=== PATIENT | male | born 1945 | race Caucasian/White ===

== ENCOUNTER 2018-07-26 16:43 | Inpatient (IN) ==
[2018-07-26] MEDS ORDERED: FUROSEMIDE 40 MG/4 ML VIAL IV STA (17:29)
[2018-07-26 17:40] LABS: Basophils # (auto) 0.04 K/uL (0-0.2); Basophils % (auto) 0.6 %; Eosinophils # (auto) 0.24 K/uL (0-0.5); Eosinophils % (auto) 3.3 %; Hematocrit (blood only) 38.2 % (42-52); Hemoglobin 12.9 g/dL (14.0-18.0); Lymphocytes # (auto) 1.32 K/uL (1.2-3.4); Lymphocytes % (auto) 18.3 %; Mean Corpuscular Hgb Conc 33.8 g/dL (32-36); Mean Corpuscular Volume 92.3 fL (80-100); Mean Platelet Volume 10.7 fL (7.4-10.4); Monocytes % (auto) 9.7 %; Neutrophils # (auto) 4.93 K/uL (1.4-6.5); Neutrophils % (auto) 68.1 %; Platelet Count 137 K/uL (130-400); RDW Coefficient of Variation 14.5 % (11.5-14.5); RDW Standard Deviation 49.1 fL (36.4-46.3); Red Blood Count 4.14 M/uL (4.7-6.1); White Blood Count 7.23 K/uL (4.8-10.8)
--- NOTE | 2018-07-26 17:45 | XRay Report ---
XR chest 1V portable CLINICAL HISTORY: 73 years-old Male presenting with Chest Pain, shortness of breath. TECHNIQUE: Portable upright AP view of the chest was obtained. COMPARISON: None. FINDINGS: Atherosclerosis of the aortic arch. Cardiac silhouette top normal in size. Mild pulmonary vascular pr ominence with bronchial wall thickening suggested. Mildly low lung volumes with elevation of the righ t hemidiaphragm. No large effusion or pneumothorax. Osseous structures normal. Upper abdomen normal. IMPRESSION: 1. Findings suggest volume overload with congestive change. No kaci pulmonary edema at this time. 2. Borderline cardiomegaly. Electronically signed by: Ryan Alexander M.D. 07/26/2018 5:44 PM
[2018-07-26 17:50] LABS: INR 1.2 (0.9-1.1); Partial Thromboplastin Ratio 1.1; Partial Thromboplastin Time 28.2 Seconds (21.0-31.0); Prothrombin Time 11.6 Seconds (9.0-12.0)
[2018-07-26 18:02] LABS: Alanine Aminotransferase 18 U/L (12-78); Albumin Level 3.6 gm/dl (3.4-5.0); Aspartate Aminotransferase 19 U/L (15-37); BUN Creatinine Ratio 11.7 (10-20); Blood Urea Nitrogen 11 mg/dl (7-18); Calcium 8.9 mg/dl (8.5-10.1); Carbon Dioxide 28 mmol/L (21-32); Chloride 101 mmol/L (98-107); Creatinine Clr Calc Pharmacy 99.2 ml/min; Est GFR (African American) 97.2; Est GFR (Non-African American) 83.9; Glucose 92 mg/dl (70-99); Magnesium 2.3 mg/dl (1.8-2.4); Potassium 4.1 mmol/L (3.5-5.1); Sodium 133 mmol/L (136-145)
[2018-07-26 18:08] LABS: Alkaline Phosphatase 99 U/L (45-117); Bilirubin,Total 1.4 mg/dl (0.2-1); Globulin 3.6 gm/dl (2.5-4.0); NT Pro B Type Natriuretic Pept 1549 pg/ml (0-900); Total Protein 7.2 gm/dl (6.4-8.2); Troponin I < 0.015 ng/ml (0-0.045)
[2018-07-26] MEDS ORDERED: ACETAMINOPHEN 325 MG TAB ONE (19:41)
[2018-07-26] MEDS ORDERED: THIAMINE HCL 100 MG in SYRINGE 9 ML IV STA (19:48)
[2018-07-26 20:22] LABS: Reticulocyte % 1.9 % (0.5-2.0); Reticulocytes # 0.08 10^6/uL (0.02-0.10)
[2018-07-26] MEDS ORDERED: ALBUT/IPRATROP 3MG/0.5MG NEB 3 ML VIAL NEB STA (20:49)
[2018-07-26 21:03] LABS: Ferritin 100.1 ng/ml (8-388)
[2018-07-26 21:12] LABS: Folate (Folic Acid) 8.88 ng/ml (>5.38)
[2018-07-26] MEDS ORDERED: IOVERSOL 100ml IV PRN (22:06)
--- NOTE | 2018-07-26 22:12 | CT Scan Report ---
CT head/brain wo con CLINICAL HISTORY: 73 years-old Male presenting with dizziness, near syncope. TECHNIQUE: Multidetector CT imaging of the head was performed without the use of intravenous contrast . IV contrast: None. One or more dose lowering techniques were used consistent with the principles of ALARA (as low as reasonably achievable), including automatic exposure control, mA or kV adjustment t o individual patient size, and/or use of iterative reconstruction. COMPARISON: None. CT DOSE (mGy.cm): The estimated cumulative dose is 1335.06. FINDINGS: Tunnel Heading Inspector topogram: Unremarkable. Ventricles and sulci normal in size. No hemorrhage. Periventricular and subcortical white matter hypo attenuation, nonspecific but likely indicative of chronic small vessel ischemic change. No acute terr itorial infarct. No mass effect or midline shift. No extra-axial fluid collection. Paranasal sinuses and mastoid air cells clear. Calvarium intact. Bilateral manzanita lenses are absent. IMPRESSION: 1. Chronic small vessel ischemic change. No acute intracranial abnormality. Electronically signed by: Ryan Alexander M.D. 07/26/2018 10:11 PM
--- NOTE | 2018-07-26 22:14 | History & Physical Report ---
Date of Service July 26, 2018 Assessment & Plan (1) CHF (congestive heart failure): A. fib, unknown duration, rate controlled Transient substernal pain rule out PE hypertension, slightly elevated Abdominal distention possible ascites LE swelling secondary to CHF rule out DVT LE claudication symptoms rule out PAD Ongoing alcohol abuse Past tobacco abuse New onset anemia, occult GI bleed No previous GI endoscopies in the past PCU Diuretic Rx Strict I/Os, daily weights, CHF education, fluid restriction TTE, Cardio consult RE CHF, new onset A. fib Continue home beta-chauncey for A. fibow, anticoagulation currently precluded by occult GI bleed CT chest PE study RE transient gripping substernal pain Abdominal ultrasound rule out ascites LE Dopplers rule out DVT ABIs RE claudication Anemia workup, hold aspirin until hemoglobin stable DVT prophylaxis. SCDs RE occult GI bleed causing anemia DNR Patient's daughter requesting updates from providers. Ms. Digna Ojeda, contact #[phone]. History of Present Illness Chief Complaint: Shortness of breath, fluid retention Primary Care Provider: Mj Lama MD History obtained from patient, family, and records. Medical history significant for hypertension, hyperlipidemia, past tobacco abuse , ongoing alcohol abuse, chronic back pain. 3 months ago patient seen at the office for weight gain, abdominal distention, leg swelling, exertional SOB. Patient unaware of snoring symptoms at night. Patient given IM Lasix at the office leading to improvement of symptoms. Unclear if patient unable to follow-up with PCP. The last week patient noted increasing abdominal distention, bilateral leg swelling and leg pain worse on walking, weight gain of about 50 pounds from April 2018. Patient admits to not being watchful with salt intake. Patient having trouble moving around and having worsening shortness of breath on exertion the last week. Noted to be stumbling by family. Episodic lightheadedness. Near syncopal event today. Transient gripping chest sensation today. No unusual cough symptoms. Patient [place] [facility] following referral by PCP. IV Lasix given at the ER for CHF. Medical History as above No history of alcohol withdrawal seizures/endotracheal intubation for alcohol withdrawal. 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 Allergies Allergy/AdvReac Type Severity Reaction Status Date / Time acetaminophen [From Vicodin] Allergy Hives Verified 07/26/18 17:05 hydrocodone [From Vicodin] Allergy Hives Verified 07/26/18 17:05 Home Medications Home Medications Medication Instructions Recorded Confirmed Type aspirin 81 mg PO DAILY 07/26/18 07/26/18 History atenolol 50 mg PO DAILY 07/26/18 07/26/18 History furosemide 40 mg PO BID 07/26/18 07/26/18 History gabapentin 300 mg PO TID 07/26/18 07/26/18 History potassium chloride 10 meq PO BID 07/26/18 07/26/18 History simvastatin 40 mg PO DAILY 07/26/18 07/26/18 History tramadol 50 mg PO Q6H PRN 07/26/18 07/26/18 History vit C,C-Yg-fsqyc-lutein-zeaxan 1 tab PO BID 07/26/18 07/26/18 History [PreserVision AREDS-2] Past Med/Surg History Medical History CHF (congestive heart failure) (Chronic) Hypertension (Chronic) Alcohol abuse (Suspected) No significant family history No significant past surgical history Social History Current Living Situation: Spouse Other Information That Helps Us Care for You: No Feels Safe at Home: Yes Smoking Status: Former smoker Tobacco Type: smokeless tobacco Do You Dip or Chew Tobacco: Yes Second Hand Exposure: No Tobacco Cessation Education Requested by Patient: No Hx Alcohol Use: Yes Alcohol type: beer Alcohol Intake Frequency: 3 or more drinks per day Hx Substance Use: No Beliefs That Will Affect Care: None Communication Ability: Effective Service Desk Director Required: Yes Review of Systems As per HPI, all 10 systems reviewed, all other ROS negative Physical Exam 2 Vital Signs (Past 24 Hours): Last Vital Signs Temp 36.7 C 07/26/18 17:05 Pulse 84 07/26/18 21:09 Resp 24 07/26/18 21:09 BP 185/95 H 07/26/18 21:09 Pulse Ox 97 07/26/18 21:01 Physical Exam: GENERAL: Anxious, obese, minimal respiratory distress SKIN: Pallor, warm HEENT: Pale palpebral conjunctivae, no ptosis, dry buccal mucosa NECK : Supple, short neck, no tenderness CHEST : Scattered crackles , no tenderness HEART : Irregular, no obvious murmurs ABDOMEN: distention, nontender EXTREMITIES : bri LE swelling, no tenderness, no other conspicuous deformities noted NEUROLOGIC : Coherent, no facial asymmetry, no other gross focality Results & Data Laboratory Results Laboratory Results WBC 7.23 K/uL (4.8-10.8) 07/26/18 17:25 RBC 4.14 M/uL (4.7-6.1) L 07/26/18 17:25 Hgb 12.9 g/dL (14.0-18.0) L 07/26/18 17:25 Hct 38.2 % (42-52) L 07/26/18 17:25 MCV 92.3 fL (80-100) 07/26/18 17:25 MCH 31.2 pg (25-34) 07/26/18 17:25 MCHC 33.8 g/dL (32-36) 07/26/18 17:25 RDW Std Deviation 49.1 fL (36.4-46.3) H 07/26/18 17:25 RDW Coeff of Brooks 14.5 % (11.5-14.5) 07/26/18 17:25 Plt Count 137 K/uL (130-400) 07/26/18 17:25 MPV 10.7 fL (7.4-10.4) H 07/26/18 17:25 Immature Gran % (Auto) 0.0 % 07/26/18 17:25 Neut % (Auto) 68.1 % 07/26/18 17:25 Lymph % (Auto) 18.3 % 07/26/18 17:25 [place] % (Auto) 9.7 % 07/26/18 17:25 Eos % (Auto) 3.3 % 07/26/18 17:25 Baso % (Auto) 0.6 % 07/26/18 17:25 Reticulocyte % (Auto) 1.9 % (0.5-2.0) 07/26/18 20:12 Immature Gran # (Auto) 0.00 K/uL (0.00-0.02) 07/26/18 17:25 Neut # (Auto) 4.93 K/uL (1.4-6.5) 07/26/18 17:25 Lymph # (Auto) 1.32 K/uL (1.2-3.4) 07/26/18 17:25 [place] # (Auto) 0.70 K/uL (0.11-0.59) H 07/26/18 17:25 Eos # (Auto) 0.24 K/uL (0-0.5) 07/26/18 17:25 Baso # (Auto) 0.04 K/uL (0-0.2) 07/26/18 17:25 Reticulocyte # 0.08 10^6/uL (0.02-0.10) 07/26/18 20:12 PT 11.6 Seconds (9.0-12.0) 07/26/18 17:25 INR 1.2 (0.9-1.1) H 07/26/18 17:25 APTT 28.2 Seconds (21.0-31.0) 07/26/18 17:25 PTT Ratio 1.1 07/26/18 17:25 Sodium 133 mmol/L (136-145) L 07/26/18 17:25 Potassium 4.1 mmol/L (3.5-5.1) 07/26/18 17:25 Chloride 101 mmol/L (98-107) 07/26/18 17:25 Carbon Dioxide 28 mmol/L (21-32) 07/26/18 17:25 Anion Gap 4.0 (3-11) 07/26/18 17:25 BUN 11 mg/dl (7-18) 07/26/18 17:25 Creatinine 0.91 mg/dl (0.6-1.4) 07/26/18 17:25 Est Cr Clr Drug Dosing 99.2 ml/min 07/26/18 17:25 Est GFR ( Amer) 97.2 07/26/18 17:25 Est GFR (Non-Af Amer) 83.9 07/26/18 17:25 BUN/Creatinine Ratio 11.7 (10-20) 07/26/18 17:25 Glucose 92 mg/dl (70-99) 07/26/18 17:25 Calcium 8.9 mg/dl (8.5-10.1) 07/26/18 17:25 Magnesium 2.3 mg/dl (1.8-2.4) 07/26/18 17:25 Iron 70 mcg/dl (35-175) 07/26/18 20:12 TIBC 336 mcg/dl (250-450) 07/26/18 20:12 Transferrin 273 mg/dl (200-360) 07/26/18 20:12 Ferritin 100.1 ng/ml (8-388) 07/26/18 20:12 Total Bilirubin 1.4 mg/dl (0.2-1) H 07/26/18 17:25 AST 19 U/L (15-37) 07/26/18 17:25 ALT 18 U/L (12-78) 07/26/18 17:25 Alkaline Phosphatase 99 U/L (45-117) 07/26/18 17:25 Troponin I < 0.015 ng/ml (0-0.045) 07/26/18 17:25 NT-Pro-B Natriuret Pep 1549 pg/ml (0-900) H 07/26/18 17:25 Total Protein 7.2 gm/dl (6.4-8.2) 07/26/18 17:25 Albumin 3.6 gm/dl (3.4-5.0) 07/26/18 17:25 Globulin 3.6 gm/dl (2.5-4.0) 07/26/18 17:25 Albumin/Globulin Ratio 1.0 (0.9-2) 07/26/18 17:25 Lipase 103 U/L (73-393) 07/26/18 17:25 Vitamin B12 337 pg/ml (211-911) 07/26/18 20:12 Folate 8.88 ng/ml (>5.38) 07/26/18 20:12 TSH 2.560 uIu/ml (0.300-4.500) 07/26/18 17:25 Ethyl Alcohol mg/dL < 3.0 mg/dl (0-3) 07/26/18 20:12 FOBT positive Diagnostic Findings Chest x-ray showed volume overload with congestive change. No kaci pulmonary edema at this time. Borderline cardiomegaly. EKG as per my interpretation : Rate 65, A. fib, diffuse T wave flattening, PRWP
--- NOTE | 2018-07-26 22:51 | CT Scan Report ---
CT angio chest PE protocol CLINICAL HISTORY: 73 years-old Male presenting with chest pain, shortness of breath, leg swelling and fluid retention, clinical concern for pulmonary embolus. TECHNIQUE: Multidetector CT angiography of the chest was performed after administration of intravenou s contrast. 3-D volumetric and/or maximum intensity projection (MIP) images were subsequently reconst ructed for review. IV contrast: 89 mL of Optiray 320. One or more dose lowering techniques were used consistent with the principles of ALARA (as low as reasonably achievable), including automatic exposu re control, mA or kV adjustment to individual patient size, and/or use of iterative reconstruction. COMPARISON: None. CT DOSE (mGy.cm): The estimated cumulative dose is 1335.06 mGy.cm. FINDINGS: Excelsior Picker topogram: Cholecystectomy clips. Pulmonary vasculature: The study is suboptimal for the assessment of the pulmonary vascular tree secondary to timing of the contrast bolus and respiratory motion artifact. Allowing for limited image quality, no central fillin g defect to suggest pulmonary embolus. Main pulmonary artery is not enlarged. No flattening of the in terventricular septum. No intracardiac filling defect. No reflux of contrast into the hepatic veins. Remaining chest: On soft tissue windows, normal thyroid. Diffuse body wall edema. Subcentimeter prominent mediastinal lymph nodes. No hilar, axillary, or supraclavicular lymphadenopathy. Trace atherosclerosis of the aor ta. Mild multichamber enlargement of the heart. Coronary artery calcification. Moderate to large righ t simple appearing pleural effusion. Small left pleural effusion. No pericardial effusion. Hepatic st eatosis. Nodular contour of the liver. Cholecystectomy clips. On lung windows, no pneumothorax. Central airways patent. Dependent consolidation volume loss in the right lower lobe and to a lesser extent in the left lower lobe. No other focal infiltrate or nodule. Respiratory motion artifact degrades diagnostic evaluation of the lung parenchyma. On bone windows, normal osseous structures. IMPRESSION: 1. Allowing for suboptimal image quality, no evidence of pulmonary embolus. 2. Moderate to large right and small left pleural effusions with passive atelectasis, right greater than left. 3. Volume overload evidenced by pleural effusions, body wall edema, and mild cardiomegaly. 4. Nodular contour of the liver suggested. This may indicate developing fibrosis in the setting of h epatic steatosis versus a cardiac etiology (congestive hepatopathy). 5. Likely reactive mediastinal lymph nodes. Attention on follow-up. Electronically signed by: Ryan Alexander M.D. 07/26/2018 10:50 PM
[2018-07-26] MEDS ORDERED: PROCHLORPERAZINE 5 MG in SYRINGE 4 ML IV PRN (23:47)
[2018-07-26] MEDS ORDERED: ATENOLOL 50 MG TABLET PO SCH (23:47)
[2018-07-26] MEDS ORDERED: LEVALBUTEROL 1.25MG/0.5ML NEB INH PRN (23:47)
[2018-07-26] MEDS ORDERED: GABAPENTIN 1200MG ALCOHOL WITHDRAWAL LOAD PO STA (23:47)
[2018-07-26] MEDS ORDERED: ATIVAN IV ALCOHOL WITHDRAWL IV SCH (23:47)
[2018-07-26] MEDS ORDERED: LORazepam 1 MG/2 ML VIAL IV PRN (23:47)
[2018-07-26] MEDS ORDERED: IPRATROPIUM BROMIDE NEB SOLN 0.02% 2.5 ML VIAL INH PRN (23:47)
[2018-07-26] MEDS ORDERED: LORazepam 2 MG/4 ML VIAL IV PRN (23:47)
[2018-07-26] MEDS ORDERED: LORazepam 3 MG/6 ML VIAL IV PRN (23:47)
[2018-07-26] MEDS ORDERED: XOPENEX/ATROVENT 1.25mg/0.5MG NEB COMBO NEB PRN (23:47)
[2018-07-26] MEDS ORDERED: MoRPHine SULFATE 4 MG/ML 1 ML CARP\\VIAL IV PRN (23:47)
[2018-07-27] MEDS ORDERED: GABAPENTIN 600 MG TAB PO SCH
[2018-07-27] MEDS: FOLIC ACID 1 MG TAB PO SCH ×2 (00:27→10:24)
[2018-07-27] MEDS: MULTIVITAMIN TAB PO SCH (00:28)
--- NOTE | 2018-07-27 00:30 | Emergency Department Note ---
Entered by Lynette Lowry acting as a scribe for Lyle Kunz MD History of Present Illness General Chief complaint: Cardiac Assessment Stated complaint: CONGESTIVE HEART FAILURE Time Seen by Provider: 07/26/18 17:15 Source: patient Limitations: no limitations History of Present Illness Provider complaint: weight gain Onset (ago): month(s) 1 Associated symptoms: + cough, + shortness of breath and + other (+dizziness, + pain in bilateral legs); no chest pain, no fever/chills and no nausea/vomiting Treatments prior to arrival: none The patient is a 73 white male w/ PMHx of CHF, alcohol abuse, and hypertension who presents to the ED w/ CC of weight gain beginning 1 month prior to arrival. The patient states that he has shortness of breath, dizziness, cough, and pain in bilateral legs. The patient denies any chest pains, nausea, vomiting, or fevers. The patient states that he saw Dr. Paz -Cardiac Disease from [facility] earlier in the day. The patient states that Dr. Paz was concerned with the patient's weight gain and swelling in his legs and states that he referred the patient to the ED. The patient states that he weighed 248 lbs. 1 month prior to arrival and states that he was given Lasix and his weight dropped down to 240 lbs. The patient states that he takes 40 mg of Lasix 2x a day but states that he didn't take any of his medications prior to arrival. The patient states that he weighs 269 lbs. today. The patient states that he uses smokless tobacco and drinks 2 beers a day. Home Medications Home Medications Medication Instructions Recorded Confirmed Type aspirin 81 mg PO DAILY 07/26/18 07/26/18 History atenolol 50 mg PO DAILY 07/26/18 07/26/18 History furosemide 40 mg PO BID 07/26/18 07/26/18 History gabapentin 300 mg PO TID 07/26/18 07/26/18 History potassium chloride 10 meq PO BID 07/26/18 07/26/18 History simvastatin 40 mg PO DAILY 07/26/18 07/26/18 History tramadol 50 mg PO Q6H PRN 07/26/18 07/26/18 History vit C,F-Wp-smfct-lutein-zeaxan 1 tab PO BID 07/26/18 07/26/18 History [PreserVision AREDS-2] Allergies Allergy/AdvReac Type Severity Reaction Status Date / Time acetaminophen [From Vicodin] Allergy Hives Verified 07/26/18 17:05 hydrocodone [From Vicodin] Allergy Hives Verified 07/26/18 17:05 Past Med/Surg History Medical History CHF (congestive heart failure) (Chronic) Hypertension (Chronic) Alcohol abuse (Suspected) No significant family history No significant past surgical history Social History Current Living Situation: Spouse Other Information That Helps Us Care for You: No Feels Safe at Home: Yes Smoking Status: Former smoker Tobacco Type: smokeless tobacco Do You Dip or Chew Tobacco: Yes Second Hand Exposure: No Tobacco Cessation Education Requested by Patient: No Hx Alcohol Use: Yes Alcohol type: beer Alcohol Intake Frequency: 3 or more drinks per day Hx Substance Use: No Beliefs That Will Affect Care: None Communication Ability: Effective Java Scala Developer Required: Yes Review of Systems See HPI for pertinent positives & negatives. and A total of 10 systems reviewed and were otherwise negative Physical Exam Vital Signs Vital Signs - 24 hr 07/26/18 17:05 07/26/18 17:18 07/26/18 17:23 Temperature 36.7 C Temperature Source Oral Sepsis Recent Fever Within 48 Hours No Sepsis New/Unexplained Change in Mental Status No Sepsis Action Taken by Nursing No Action Required Pulse Rate 67 64 Pulse Rate [Apical] Pulse Rhythm Regular Pulse Strength Normal Respiratory Rate 24 19 Respiratory Effort / Characteristics Spontaneous Labored Respiratory Depth Normal Respiratory Pattern Regular Blood Pressure 149/59 H Blood Pressure [Right Arm] Blood Pressure Mean 89 Blood Pressure Mean [Right Arm] Blood Pressure Position Sitting Pulse Oximetry 97 97 96 Oxygen Delivery Method Room Air Room Air Oxygen Flow Rate 07/26/18 17:27 07/26/18 17:30 07/26/18 17:31 Temperature Temperature Source Sepsis Recent Fever Within 48 Hours Sepsis New/Unexplained Change in Mental Status Sepsis Action Taken by Nursing Pulse Rate 64 61 59 L Pulse Rate [Apical] 62 Pulse Rhythm Pulse Strength Respiratory Rate 25 H 19 18 Respiratory Effort / Characteristics Respiratory Depth Respiratory Pattern Blood Pressure 165/67 H 152/61 H Blood Pressure [Right Arm] 152/61 H Blood Pressure Mean 99 91 Blood Pressure Mean [Right Arm] 91 Blood Pressure Position Pulse Oximetry 95 98 99 Oxygen Delivery Method Room Air Oxygen Flow Rate 07/26/18 17:42 07/26/18 18:00 02/05/19 18:04 Temperature Temperature Source Sepsis Recent Fever Within 48 Hours Sepsis New/Unexplained Change in Mental Status Sepsis Action Taken by Nursing Pulse Rate 63 Pulse Rate [Apical] 62 Pulse Rhythm Pulse Strength Respiratory Rate 20 16 Respiratory Effort / Characteristics Respiratory Depth Respiratory Pattern Blood Pressure 178/73 H Blood Pressure [Right Arm] 178/73 H Blood Pressure Mean 108 Blood Pressure Mean [Right Arm] 108 Blood Pressure Position Pulse Oximetry 97 97 97 Oxygen Delivery Method Room Air Room Air Oxygen Flow Rate 07/26/18 18:30 07/26/18 19:00 07/26/18 19:21 Temperature Temperature Source Sepsis Recent Fever Within 48 Hours Sepsis New/Unexplained Change in Mental Status Sepsis Action Taken by Nursing Pulse Rate 64 65 Pulse Rate [Apical] 63 Pulse Rhythm Pulse Strength Respiratory Rate 18 19 16 Respiratory Effort / Characteristics Respiratory Depth Respiratory Pattern Blood Pressure 157/94 H 165/64 H Blood Pressure [Right Arm] 165/64 H Blood Pressure Mean 115 97 Blood Pressure Mean [Right Arm] 97 Blood Pressure Position Pulse Oximetry 94 97 Oxygen Delivery Method Room Air Oxygen Flow Rate 07/26/18 19:30 07/26/18 20:00 07/26/18 20:30 Temperature Temperature Source Sepsis Recent Fever Within 48 Hours Sepsis New/Unexplained Change in Mental Status Sepsis Action Taken by Nursing Pulse Rate 65 65 62 Pulse Rate [Apical] Pulse Rhythm Pulse Strength Respiratory Rate 22 26 H 19 Respiratory Effort / Characteristics Respiratory Depth Respiratory Pattern Blood Pressure 185/76 H Blood Pressure [Right Arm] Blood Pressure Mean 112 Blood Pressure Mean [Right Arm] Blood Pressure Position Pulse Oximetry 96 Oxygen Delivery Method Oxygen Flow Rate 07/26/18 20:46 07/26/18 21:00 07/26/18 21:01 Temperature Temperature Source Sepsis Recent Fever Within 48 Hours Sepsis New/Unexplained Change in Mental Status Sepsis Action Taken by Nursing Pulse Rate 63 66 65 Pulse Rate [Apical] 63 Pulse Rhythm Pulse Strength Respiratory Rate 25 H 19 22 Respiratory Effort / Characteristics Respiratory Depth Respiratory Pattern Blood Pressure 141/59 H 184/68 H Blood Pressure [Right Arm] 141/59 H Blood Pressure Mean 86 106 Blood Pressure Mean [Right Arm] 86 Blood Pressure Position Pulse Oximetry 98 96 97 Oxygen Delivery Method Room Air Oxygen Flow Rate 07/26/18 21:09 07/26/18 22:31 07/26/18 23:00 Temperature Temperature Source Sepsis Recent Fever Within 48 Hours Sepsis New/Unexplained Change in Mental Status Sepsis Action Taken by Nursing Pulse Rate 84 Pulse Rate [Apical] 73 Pulse Rhythm Pulse Strength Respiratory Rate 24 22 Respiratory Effort / Characteristics Respiratory Depth Respiratory Pattern Blood Pressure 185/95 H Blood Pressure [Right Arm] 137/59 L Blood Pressure Mean 125 Blood Pressure Mean [Right Arm] 85 Blood Pressure Position Pulse Oximetry 94 Oxygen Delivery Method Room Air Room Air Oxygen Flow Rate 07/26/18 23:55 Temperature 37.0 C Temperature Source Oral Sepsis Recent Fever Within 48 Hours Sepsis New/Unexplained Change in Mental Status Sepsis Action Taken by Nursing Pulse Rate 67 Pulse Rate [Apical] 90 Pulse Rhythm Pulse Strength Respiratory Rate 24 Respiratory Effort / Characteristics Non-Labored SOB on Exertion Respiratory Depth Respiratory Pattern Tachypnea Blood Pressure Blood Pressure [Right Arm] 142/76 H Blood Pressure Mean Blood Pressure Mean [Right Arm] 98 Blood Pressure Position Pulse Oximetry 90 Oxygen Delivery Method Nasal Cannula Oxygen Flow Rate 2 GENERAL: Well appearing, well nourished, NAD, non-toxic. EYE EXAM: Normal conjunctiva. PERRL, no anisocoria and EOM's grossly intact w/o pain. OROPHARYNX: No exudate, poor dentition, no tonsillar/uvular deviation or swelling. NECK: Supple, no nuchal rigidity, no adenopathy, non-tender. No signs of meningismus. LUNGS: Bibasilar crackles. Normal chest wall mechanics. HEART: Irregularly irregular, no MRG. ABDOMEN: Abdomen soft, non-tender, normo-active bowel sounds, no masses, no rebound or guarding. BACK: No CVA TTP. SKIN: No rashes and no bruising. UPPER EXTREMITIES: Upper extremities are grossly normal. LOWER EXTREMITIES: 3/4+ bilateral pitting edema, negative Homans sign. NEURO EXAM: Cranial nerves II-XII grossly intact, normal speech, 5/5 strength in bilateral upper and lower extremities, no sensory deficits, moves all 4 extremities on command w/o issue. Course 1720: Past medical records reviewed. The patient was evaluated in room B8, and a complete history and physical examination were performed. 0: I checked on and updated the patient on his results. 1912: I discussed the patient's case with Cheyenne ORNELAS/Alley Moses who will evaluate the patient for further hospitaization. Consultations Consultation #1: Cheyenne ORNELAS/Alley Moses Time: 19:13 Administered Medications Discontinued Medications Acetaminophen (Tylenol) Confirm Administered Dose 650 mg .ROUTE .STK-MED ONE Stop: 07/26/18 19:42 Last Admin: 07/26/18 19:43 Dose: 650 mg Albuterol (Duoneb) 3 ml NEB NOW STA Stop: 07/26/18 20:50 Last Admin: 07/26/18 21:11 Dose: 3 ml Furosemide (Lasix) 40 mg IV NOW STA Stop: 07/26/18 17:30 Last Admin: 07/26/18 18:04 Dose: 40 mg Thiamine HCl 100 mg/ Syringe 10 mls @ 2 mls/min IV NOW STA Stop: 07/26/18 19:52 Last Admin: 07/26/18 21:11 Dose: 2 mls/min Ioversol (Optiray 320 100ml) 89 ml IV ONCE PRN PRN Reason: Interaction Checking Stop: 07/30/18 22:05 Last Admin: 07/26/18 22:08 Dose: 89 ml Medical Decision Making Medical Records Attestation: I reviewed the patient's medical records. Home Medications Current Medication List: was personally reviewed by me Laboratory Data Attestation: I reviewed the patient's lab results. Result diagrams: 07/26/18 17:25 07/26/18 17:25 Lab Results 07/26/18 07/26/18 07/26/18 Range/Units 17:25 17:25 17:25 WBC 7.23 (4.8-10.8) K/uL RBC 4.14 L (4.7-6.1) M/uL Hgb 12.9 L (14.0-18.0) g/dL Hct 38.2 L (42-52) % MCV 92.3 (80-100) fL MCH 31.2 (25-34) pg MCHC 33.8 (32-36) g/dL RDW Std Deviation 49.1 H (36.4-46.3) fL RDW Coeff of Brooks 14.5 (11.5-14.5) % Plt Count 137 (130-400) K/uL MPV 10.7 H (7.4-10.4) fL Immature Gran % (Auto) 0.0 % Neut % (Auto) 68.1 % Lymph % (Auto) 18.3 % Churchill % (Auto) 9.7 % Eos % (Auto) 3.3 % Baso % (Auto) 0.6 % Reticulocyte % (Auto) (0.5-2.0) % Immature Gran # (Auto) 0.00 (0.00-0.02) K/uL Neut # (Auto) 4.93 (1.4-6.5) K/uL Lymph # (Auto) 1.32 (1.2-3.4) K/uL Churchill # (Auto) 0.70 H (0.11-0.59) K/uL Eos # (Auto) 0.24 (0-0.5) K/uL Baso # (Auto) 0.04 (0-0.2) K/uL Reticulocyte # (0.02-0.10) 10^6/uL PT 11.6 (9.0-12.0) Seconds INR 1.2 H (0.9-1.1) APTT 28.2 (21.0-31.0) Seconds PTT Ratio 1.1 Sodium 133 L (136-145) mmol/L Potassium 4.1 (3.5-5.1) mmol/L Chloride 101 (98-107) mmol/L Carbon Dioxide 28 (21-32) mmol/L Anion Gap 4.0 (3-11) BUN 11 (7-18) mg/dl Creatinine 0.91 (0.6-1.4) mg/dl Est Cr Clr Drug Dosing 99.2 ml/min Est GFR ( Amer) 97.2 Est GFR (Non-Af Amer) 83.9 BUN/Creatinine Ratio 11.7 (10-20) Glucose 92 (70-99) mg/dl Calcium 8.9 (8.5-10.1) mg/dl Magnesium 2.3 (1.8-2.4) mg/dl Iron (35-175) mcg/dl TIBC (250-450) mcg/dl Transferrin (200-360) mg/dl Ferritin (8-388) ng/ml Total Bilirubin 1.4 H (0.2-1) mg/dl AST 19 (15-37) U/L ALT 18 (12-78) U/L Alkaline Phosphatase 99 (45-117) U/L Troponin I < 0.015 (0-0.045) ng/ml NT-Pro-B Natriuret Pep 1549 H (0-900) pg/ml Total Protein 7.2 (6.4-8.2) gm/dl Albumin 3.6 (3.4-5.0) gm/dl Globulin 3.6 (2.5-4.0) gm/dl Albumin/Globulin Ratio 1.0 (0.9-2) Lipase 103 (73-393) U/L Vitamin B12 (211-911) pg/ml Folate (>5.38) ng/ml TSH (0.300-4.500) uIu/ml Ethyl Alcohol mg/dL (0-3) mg/dl Blood Type Antibody Screen 07/26/18 07/26/18 07/26/18 Range/Units 17:25 20:12 20:12 WBC (4.8-10.8) K/uL RBC (4.7-6.1) M/uL Hgb (14.0-18.0) g/dL Hct (42-52) % MCV (80-100) fL MCH (25-34) pg MCHC (32-36) g/dL RDW Std Deviation (36.4-46.3) fL RDW Coeff of Brooks (11.5-14.5) % Plt Count (130-400) K/uL MPV (7.4-10.4) fL Immature Gran % (Auto) % Neut % (Auto) % Lymph % (Auto) % Churchill % (Auto) % Eos % (Auto) % Baso % (Auto) % Reticulocyte % (Auto) 1.9 (0.5-2.0) % Immature Gran # (Auto) (0.00-0.02) K/uL Neut # (Auto) (1.4-6.5) K/uL Lymph # (Auto) (1.2-3.4) K/uL Churchill # (Auto) (0.11-0.59) K/uL Eos # (Auto) (0-0.5) K/uL Baso # (Auto) (0-0.2) K/uL Reticulocyte # 0.08 (0.02-0.10) 10^6/uL PT (9.0-12.0) Seconds INR (0.9-1.1) APTT (21.0-31.0) Seconds PTT Ratio Sodium (136-145) mmol/L Potassium (3.5-5.1) mmol/L Chloride (98-107) mmol/L Carbon Dioxide (21-32) mmol/L Anion Gap (3-11) BUN (7-18) mg/dl Creatinine (0.6-1.4) mg/dl Est Cr Clr Drug Dosing ml/min Est GFR ( Amer) Est GFR (Non-Af Amer) BUN/Creatinine Ratio (10-20) Glucose (70-99) mg/dl Calcium (8.5-10.1) mg/dl Magnesium (1.8-2.4) mg/dl Iron (35-175) mcg/dl TIBC (250-450) mcg/dl Transferrin (200-360) mg/dl Ferritin (8-388) ng/ml Total Bilirubin (0.2-1) mg/dl AST (15-37) U/L ALT (12-78) U/L Alkaline Phosphatase (45-117) U/L Troponin I (0-0.045) ng/ml NT-Pro-B Natriuret Pep (0-900) pg/ml Total Protein (6.4-8.2) gm/dl Albumin (3.4-5.0) gm/dl Globulin (2.5-4.0) gm/dl Albumin/Globulin Ratio (0.9-2) Lipase (73-393) U/L Vitamin B12 337 (211-911) pg/ml Folate 8.88 (>5.38) ng/ml TSH 2.560 (0.300-4.500) uIu/ml Ethyl Alcohol mg/dL (0-3) mg/dl Blood Type Antibody Screen 07/26/18 07/26/18 07/26/18 Range/Units 20:12 20:12 20:12 WBC (4.8-10.8) K/uL RBC (4.7-6.1) M/uL Hgb (14.0-18.0) g/dL Hct (42-52) % MCV (80-100) fL MCH (25-34) pg MCHC (32-36) g/dL RDW Std Deviation (36.4-46.3) fL RDW Coeff of Brooks (11.5-14.5) % Plt Count (130-400) K/uL MPV (7.4-10.4) fL Immature Gran % (Auto) % Neut % (Auto) % Lymph % (Auto) % Churchill % (Auto) % Eos % (Auto) % Baso % (Auto) % Reticulocyte % (Auto) (0.5-2.0) % Immature Gran # (Auto) (0.00-0.02) K/uL Neut # (Auto) (1.4-6.5) K/uL Lymph # (Auto) (1.2-3.4) K/uL Churchill # (Auto) (0.11-0.59) K/uL Eos # (Auto) (0-0.5) K/uL Baso # (Auto) (0-0.2) K/uL Reticulocyte # (0.02-0.10) 10^6/uL PT (9.0-12.0) Seconds INR (0.9-1.1) APTT (21.0-31.0) Seconds PTT Ratio Sodium (136-145) mmol/L Potassium (3.5-5.1) mmol/L Chloride (98-107) mmol/L Carbon Dioxide (21-32) mmol/L Anion Gap (3-11) BUN (7-18) mg/dl Creatinine (0.6-1.4) mg/dl Est Cr Clr Drug Dosing ml/min Est GFR ( Amer) Est GFR (Non-Af Amer) BUN/Creatinine Ratio (10-20) Glucose (70-99) mg/dl Calcium (8.5-10.1) mg/dl Magnesium (1.8-2.4) mg/dl Iron 70 (35-175) mcg/dl TIBC 336 (250-450) mcg/dl Transferrin 273 (200-360) mg/dl Ferritin 100.1 (8-388) ng/ml Total Bilirubin (0.2-1) mg/dl AST (15-37) U/L ALT (12-78) U/L Alkaline Phosphatase (45-117) U/L Troponin I (0-0.045) ng/ml NT-Pro-B Natriuret Pep (0-900) pg/ml Total Protein (6.4-8.2) gm/dl Albumin (3.4-5.0) gm/dl Globulin (2.5-4.0) gm/dl Albumin/Globulin Ratio (0.9-2) Lipase (73-393) U/L Vitamin B12 (211-911) pg/ml Folate (>5.38) ng/ml TSH (0.300-4.500) uIu/ml Ethyl Alcohol mg/dL < 3.0 (0-3) mg/dl Blood Type A Positive Antibody Screen NEGATIVE Imaging Data Radiologist's Impression: Radiology results as stated below per my review and the radiologist's interpretation: XR chest 1V portable CLINICAL HISTORY: 73 years-old Male presenting with Chest Pain, shortness of breath. TECHNIQUE: Portable upright AP view of the chest was obtained. COMPARISON: None. FINDINGS: Atherosclerosis of the aortic arch. Cardiac silhouette top normal in size. Mild pulmonary vascular prominence with bronchial wall thickening suggested. Mildly low lung volumes with elevation of the right hemidiaphragm. No large effusion or pneumothorax. Osseous structures normal. Upper abdomen normal. IMPRESSION: 1. Findings suggest volume overload with congestive change. No kaci pulmonary edema at this time. 2. Borderline cardiomegaly. Electronically signed by: Ryan Alexander M.D. 07/26/2018 5:44 PM ECG Data Attestation: I personally reviewed and interpreted this ECG as follows: Indication: SOB/dyspnea Rate (beats per minute): 67 Rhythm: atrial fibrillation Findings: + other (normal QRS, normal axis) Comparison ECG Date: no prior available Blood Pressure Blood Pressure Findings: Elevated blood pressure Blood Pressure Disposition: further management by hospitalist SUKHI Narrative The patient is a 73 white male w/ PMHx of CHF, alcohol abuse, and hypertension who presents to the ED w/ CC of weight gain beginning 1 month prior to arrival. Differential diagnosis: Etiologies such as infections, reactive airway disease, COPD, pneumonia, pleural effusion, pulmonary edema, ARDS, pneumothorax, CHF, cardiac ischemia, cardiac tamponade, dysrhythmia, anemia, pulmonary embolism, musculoskeletal, gastrointestinal process, as well as others were entertained. Patient was seen and evaluated the bedside. The patient does have a history of recently diagnosed CHF. The patient was seen at an outpatient cardiology clinic and referred for diuresis. The patient has put on approximately 29 pounds. The patient did a blood work completed along with a BNP troponin chest x-ray and EKG. Patient's EKG does show A. fib. No prior EKGs that are documented. Patient does believe that he does take Lasix 40 mg twice daily. Patient was given first dose. Chest x-ray does show some vascular congestion but without kaci pulmonary edema. The patient does have 3-4 bilateral lower extremity edema. Given the patient's significant weight gain, increasing dyspnea on exertion, lower semi-swelling I believe the patient would benefit from inpatient treatment and IV diuresis. I did speak the on-call hospitalist who agreed to further evaluate treat the patient. Patient was admitted to the medicine service. Impression & Plan CHF exacerbation, Alcohol abuse, Encounter for tobacco use cessation counseling Discharge Plan Visit Data *Final* Discharge Date/Time: 07/26/18 23:00 Chief Complaint: Cardiac Assessment Stated Complaint: CONGESTIVE HEART FAILURE ED Provider: Lyle Kunz Discharge Problem: CHF exacerbation, Alcohol abuse, Encounter for tobacco use cessation counseling Patient Disposition: Admitted As Inpatient Discharge Instructions Interventions: ED Discharge Assessment Last Done: 07/26/18 23:00 The scribe's documentation has been prepared under my direction and personally reviewed by me in its entirety. I confirm that the note above accurately reflects all work, treatment, procedures, and medical decision making performed by me.
[2018-07-27] MEDS ORDERED: ALBUT/IPRATROP 3MG/0.5MG NEB 3 ML VIAL NEB STA (03:43)
[2018-07-27] MEDS ORDERED: FUROSEMIDE 40 MG in SYRINGE 0 ML IV SCH ×2 (03:45→09:00)
[2018-07-27 04:13] LABS: Basophils # (auto) 0.03 K/uL (0-0.2); Basophils % (auto) 0.4 %; Eosinophils % (auto) 2.9 %; Hematocrit (blood only) 36.3 % (42-52); Hemoglobin 12.2 g/dL (14.0-18.0); Immature Granulocytes # (auto) 0.01 K/uL (0.00-0.02); Immature Granulocytes % (auto) 0.1 %; Lymphocytes # (auto) 1.29 K/uL (1.2-3.4); Mean Corpuscular Hgb Conc 33.6 g/dL (32-36); Mean Corpuscular Volume 92.8 fL (80-100); Mean Platelet Volume 10.9 fL (7.4-10.4); Monocytes # (auto) 0.64 K/uL (0.11-0.59); Monocytes % (auto) 9.4 %; Neutrophils # (auto) 4.61 K/uL (1.4-6.5); Neutrophils % (auto) 68.2 %; Platelet Count 148 K/uL (130-400); RDW Coefficient of Variation 14.6 % (11.5-14.5); RDW Standard Deviation 49.6 fL (36.4-46.3); Red Blood Count 3.91 M/uL (4.7-6.1); White Blood Count 6.78 K/uL (4.8-10.8)
[2018-07-27 04:16] LABS: HCO3 ABG 26 mmol/L (19-24); Oxygen Saturation ABG 98.5 % (90-95); PCO2 ABG 44 mmHg (35-46); PO2 ABG 120 mm/Hg (80-95); pH ABG 7.38 (7.35-7.45)
[2018-07-27 04:17] LABS: Allen Test POS (Pos)
--- NOTE | 2018-07-27 04:19 | Hospitalist Progress Note ---
Date of Service July 27, 2018 Subjective Made aware by RN of patient having apneic spells, desaturating in the 70s, transient bradycardia in the 40s during sleep. On waking up, patient denies unusual shortness of breath. O2 sats back in the 90s cardiac rate 60s AP Episodic bradycardia likely secondary to undiagnosed LIANET Decrease maintenance beta-chauncey dose outpatient sleep study Inpatient CPAP at bedtime Consider inpatient Pulmonology consultation regarding inpatient apneic events with hypoxemia. Physical Exam 2 Vital Signs (Past 24 Hours): Last Vital Signs Temp 37.0 C 07/26/18 23:55 Pulse 90 07/26/18 23:55 Resp 24 07/26/18 23:55 BP 142/76 H 07/26/18 23:55 Pulse Ox 90 07/26/18 23:55
[2018-07-27 04:22] LABS: Partial Thromboplastin Ratio 1.1; Partial Thromboplastin Time 28.4 Seconds (21.0-31.0)
[2018-07-27 04:31] LABS: BUN Creatinine Ratio 12.1 (10-20); Calcium 8.6 mg/dl (8.5-10.1); Creatinine Clr Calc Pharmacy 95.9 ml/min; Est GFR (Non-African American) 85.4; Magnesium 2.3 mg/dl (1.8-2.4); Potassium 3.8 mmol/L (3.5-5.1)
[2018-07-27 04:38] LABS: Troponin I 0.052 ng/ml (0-0.045)
[2018-07-27] MEDS ORDERED: POTASSIUM CHLORIDE 20 MEQ TABCR PO STA (04:44)
--- NOTE | 2018-07-27 06:44 | Ultrasound Report ---
US ankle/brachial index comp CLINICAL HISTORY: claudication COMPARISON STUDY: No previous studies for comparison. TECHNIQUE: Bilateral ankle to brachial indices were obtained. Blood pressure could not be obtained fr om the left arm due to patient motion. Blood pressure from the right arm utilized. FINDINGS: The right ankle-brachial index measured 0.78 when using the posterior tibial artery. The ri ght dorsalis pedis was noncompressible. The left ankle to brachial index measured 0.61 when using the dorsalis pedis. The left posterior tibial artery was not compressible. IMPRESSION: Diminished bilateral ankle to brachial indices, left more severe than right. Left SONU of 0.61 and right SONU of 0.78. Electronically signed by: Prabhu Peraza M.D. 07/27/2018 6:42 AM
--- NOTE | 2018-07-27 07:07 | Ultrasound Report ---
ULTRASOUND ASCITES CHECK CLINICAL HISTORY: Edema. COMPARISON STUDY: No priors. FINDINGS: Real-time grayscale sonography of all 4 quadrants of the abdomen is performed to assess for abdominal ascites. No abdominal ascites is identified. IMPRESSION: No abdominal ascites is seen. Electronically signed by: Red Sheldon M.D. 07/27/2018 7:06 AM
--- NOTE | 2018-07-27 07:39 | Ultrasound Report ---
BILATERAL LOWER EXTREMITY VENOUS DOPPLER CLINICAL HISTORY: leg swelling COMPARISON STUDY: No previous studies for comparison. TECHNIQUE: Sonography of the deep venous system of the bilateral lower extremities was performed. Co mpression and augmentation were evaluated. FINDINGS: The bilateral common femoral, superficial femoral and popliteal veins were compressible. A ugmentation was normal. Flow was shown within the deep calf vessels although the calf vessels were gabriel boptimally assessed due to lower extremity edema. IMPRESSION: No evidence of deep venous thrombus within the bilateral lower extremities. Electronically signed by: Prabhu Peraza M.D. 07/27/2018 7:38 AM
[2018-07-27] MEDS ORDERED: FUROSEMIDE 40 MG/4 ML VIAL IV SCH (09:00)
[2018-07-27] MEDS ORDERED: ATENOLOL 50 MG TABLET PO SCH ×2 (09:00)
[2018-07-27 09:58] LABS: Hemoglobin 12.2 g/dL (14.0-18.0)
[2018-07-27] MEDS: THIAMINE HCL 100 MG TAB PO SCH (10:22)
[2018-07-27] MEDS: GABAPENTIN 600 MG TAB PO SCH ×3 (10:23→20:44)
[2018-07-27] MEDS: POTASSIUM CHLORIDE 20 MEQ TABCR PO SCH (10:24)
[2018-07-27] MEDS: SIMVASTATIN 40 MG TAB PO SCH (10:25)
--- NOTE | 2018-07-27 11:46 | Hospitalist Progress Note ---
Date of Service July 27, 2018 Assessment & Plan (1) CHF (congestive heart failure): A. fib, unknown duration, rate controlled Transient substernal pain-No PE or DVT Pleural Effusions-IV Lasix hypertension, slightly elevated, continue to monitor Abdominal distention possible ascites LE swelling secondary to CHF Chronic Systolic and Diastolic LE claudication symptoms rule out PAD Ongoing alcohol abuse Past tobacco abuse New onset anemia, occult GI bleed No previous GI endoscopies in the past PCU Diuretic Rx Strict I/Os, daily weights, CHF education, fluid restriction TTE, Cardio consult RE CHF, new onset A. fib/Bradycardia Continue home beta-chauncey for A. fib, anticoagulation currently precluded by occult GI bleed ABIs RE claudication ABG today Anemia workup, hold aspirin until hemoglobin stable DVT prophylaxis. SCDs RE occult GI bleed causing anemia GI to See when more stable Pulm Eval Continue BIPAP DNR Patient's daughter requesting updates from providers. Ms. Digna Ojeda, contact #[phone]. Subjective RN reports apneic spells, desaturating in the 70s, transient bradycardia in the 40s during sleep. AP Episodic bradycardia likely secondary to undiagnosed LIANET Decrease maintenance beta-chauncey dose outpatient sleep study Inpatient CPAP at bedtime Pulmonology consultation regarding inpatient apneic events with hypoxemia. ROS-No Headache, No Visual Changes, No Fever, No Chills, No Neck Pain or Stiffness, No Chest Pain, No Palpitations, No SOB, No JUAN, No Cough, No Sputum, No Wheezing, No Abdominal Pain, No Diarrhea, No Hematemesis, No Hemoptysis, No Unexpected Weight Loss, No Flank pain, No Melena, No Hematochezia, No Frequency , No Urgency, No Burning, No Hematuria, No Rashes, No Diaphoresis. Appetite is Normal Physical Exam Gen- On BIPAP, Sleepy, NAD, Afebrile Head-NCAT, EOMI, PERRLA, Anicteric Sclera, No Posterior Pharyngeal Erythema Neck-Supple, No JVD, No Thyromegaly, No Masses, No LAD, No Bruits Lungs-Clear to Auscultation Bilaterally, No Rales, No Rhonchi, No Wheezing, No Crepitus Chest-No S4, +S1, +S2, No S3, No Murmurs, No Rubs, No Gallops, + Ectopy Abdomen-Soft, Obese, Bowel Sounds Present, Non Tender, Non Distended, No Hepatomegaly, No Splenomegaly, No Palpable Masses, No Rebound, No Rigidity, No Guarding Musculoskeletal-Full Range of Motion Bilaterally, No CVAT Extremities-No Cyanosis, No Clubbing, + Edema B/L Nuero-Cranial Nerves II-XII grossly intact, Motor WNL, DTRs WNL, Strength WNL, No Focal Psych-Normal Mood Physical Exam 2 Vital Signs (Past 24 Hours): Last Vital Signs Temp 36.8 C 07/27/18 07:06 Pulse 69 07/27/18 07:06 Resp 20 07/27/18 07:06 BP 161/73 H 07/27/18 07:06 Pulse Ox 91 07/27/18 07:06 Results & Data Laboratory Results Current Diagnoses Heart failure, unspecified (07/26/18) Allergies acetaminophen [From Vicodin] Allergy (Verified 07/26/18 17:05) Hives hydrocodone [From Vicodin] Allergy (Verified 07/26/18 17:05) Hives Height/Weight/Isolation Height 5 ft 10 in Weight 114.9 kg Chemistry 07/26/18 07/27/18 17:25 03:56 Sodium 133 L 137 Potassium 4.1 3.8 Chloride 101 104 Carbon Dioxide 28 25 Anion Gap 4.0 8.0 BUN 11 11 Creatinine 0.91 0.89 Glucose 92 87
[2018-07-27] MEDS ORDERED: SPIRONOLACTONE 25 MG TAB PO ONE (12:15)
[2018-07-27] MEDS: NITROGLYCERIN 2% OINTMENT 30GM TUBE EXT SCH ×3 (12:34→23:27)
[2018-07-27] MEDS: FUROSEMIDE 60 MG in SYRINGE 0 ML IV SCH ×2 (12:38→20:43)
[2018-07-27 12:42] LABS: HCO3 ABG 25 mmol/L (19-24); Oxygen Saturation ABG 96.3 % (90-95); PCO2 ABG 38 mmHg (35-46); PO2 ABG 79 mm/Hg (80-95); pH ABG 7.44 (7.35-7.45)
[2018-07-27 12:43] LABS: Allen Test POS (Pos)
--- NOTE | 2018-07-27 14:57 | Consultation Report ---
DATE OF CONSULTATION: 07/27/2018 CARDIOLOGY CONSULTATION REFERRING PHYSICIAN: Dr. Frost. PRIMARY CARE PHYSICIAN: Dr. Lama/Dr. Nader Holman. INDICATIONS: Signs or symptoms of right heart failure, abdominal bloating, weight gain. HISTORY OF PRESENT ILLNESS: The patient is a 73-year-old male without prior history of structural heart disease who has been noted by family and physicians that had recent increasing difficulties with lower extremity edema, increased abdominal bloating, weakness, fatigue and significant weight gain, weight is up at least 30 pounds over the past 4-6 months, but no abrupt weight gain in the last 1-2 weeks. He notes no chest pains. Notes no tachypalpitations. Notes no dizziness or lightheadedness. He did respond initially to diuretics and then gained further weight as an outpatient. He notes no prior history of rheumatic fever, scarlet fever or heart murmur. Notes no history of hepatic, thyroid or renal dysfunction. The patient has become slightly more breathless and has been finding it more and more difficult to dress and even perform basic activities about home. He does care for his ailing at home. Notes no change in diet, though does take a large amount of salt as well as up to 6-8 beers per day. Uses nonsteroidals frequently. He feels he is able to otherwise sleeping flat at night. He has been observed to snore. He was seen as an outpatient yesterday and referred for inpatient management due to evidence of findings of acute anasarca and complaints as noted above. Since admission, he has been observed to be apneic at night with significant hypoxia and associated bradycardia with IV diuretics. He has manifested at least 2 liters of diuresis. REVIEW OF SYSTEMS: Otherwise negative. ALLERGIES: NOTED TO BE VICODIN. MEDICATIONS: At home were aspirin 81 mg per day, atenolol 50 mg p.o. daily, furosemide 40 mg b.i.d., gabapentin 300 t.i.d., potassium chloride 10 mg b.i.d., simvastatin 40 mg daily, tramadol p.r.n. pain, vitamin C/PreserVision supplement 1 tablet b.i.d. PAST SURGICAL HISTORY: Notable for prior cholecystectomy, arthroscopic knee surgery, vocal cord polyp resection, and cataract extraction. FAMILY HISTORY: Positive for coronary artery disease in father and 2 brothers. SOCIAL HISTORY: The patient resides in [facility]. He remains at home most days caring for . He is a nonsmoker x50 years. Does chew snuff. Drinks up to 6 or 8 beers per day. PHYSICAL EXAMINATION: GENERAL: The patient is an age-appropriate male with somewhat disheveled appearance and heavily bearded, but denying any acute complaints. VITAL SIGNS: Heart rate is 69, blood pressure is 161/73. HEENT: Normocephalic and atraumatic. Nares without discharge. Pupils equal, round, react to light and accommodation. There is injection of the conjunctiva and sclerae. Throat revealed poor dentition. NECK: Thick and heavily bearded. There is no distinct jugular venous distention. LUNGS: Reveal diminished breath sounds diffusely. CARDIOVASCULAR: Regular with distant heart sounds. There is no audible rub, murmur or rub. ABDOMEN: Diffusely distended with no palpable hepatosplenomegaly. EXTREMITIES: Reveal 3+ edema to above the knees. SKIN: Overall skin exam reveals diffuse anasarca, ecchymosis of the forearm. NEUROLOGIC: The patient is accompanied by family and does answer questions appropriately per their own recollection. He is moving extremities without focal weakness, though "feels weak all over." DATA: EKG on presentation revealed sinus rhythm with atrial ectopy. EKG this morning reveals sinus rhythm with nonspecific ST segment changes inferolaterally, prolonged QT interval 465. Chest x-ray reveals cardiac silhouette upper limits of normal, possible right pleural effusion, small left pleural effusion. Studies in the ER included CTA which was negative for pulmonary embolus. Coronary calcification is observed. Head CT was unremarkable. Hepatic finding suggested nodular contour. SONU was notable for diminished ankle brachial indices. Venous duplex was negative for deep venous thrombosis. LABORATORY DATA: White cell count 6.7, hemoglobin is 12.2, hematocrit is 36.3, platelet count is 148. Sodium is 137, potassium 3.8, chloride 104, bicarbonate 25, BUN 11, creatinine 0.89, glucose is 87. Iron level was 70 with a ferritin level 100. Troponin is notable for transient low as 2.05 after admission. TSH is pending. Arterial blood gas on admission revealed pH of 7.38, pCO2 of 44, pO2 of 120, but performed on 3 liters nasal cannula. Coag levels are normal. Echocardiogram performed by my review today demonstrated a study of fair technical quality. Mild left ventricular hypertrophy though with preserved LV systolic function, no segmental abnormalities. EF 60-65%. The right ventricle was upper limits of normal in size and function. The aortic valve was notable for sclerosis, but no stenosis. There is moderate tricuspid insufficiency and indirect evidence of severe pulmonary hypertension. IMPRESSION: A 73-year-old male referred for hospitalization of signs or symptoms of diffuse anasarca, dramatically increasing weight gain over the past several weeks to months, evidence of worsening lower extremity edema, abdominal bloating and shortness of breath. Initial concerns regarding possible left heart failure, initial echocardiogram does not demonstrate evidence of LV dysfunction, though there is significant elevation of pulmonary pressures by indirect measurement. Last night observation was noted to have sleep apnea and bradycardia. RECOMMENDATIONS: Would check TSH given diffuse anasarca and edema. Continue IV diuretics. Will discontinue atenolol and switch to Toprol for cardiac benefits. Spironolactone will be added to medical regimen given predominant right heart symptoms. Etiology of this may be all due to hypoxia and hypoventilation at night with worsening right heart pressures. Formal sleep study will be required. In the interim, I agree with plans for treatments with oxygen and CPAP supplementation. Will follow closely with the patient in hospital, coronary calcification suggest presence of coronary atherosclerosis, also identified by peripheral vascular findings. No acute coronary syndrome suspected. He remains at risk for atrial arrhythmias as well as acute alcohol withdrawal. Will follow the patient in the hospital.
[2018-07-27] MEDS: LISINOPRIL 10 MG TAB PO SCH (18:01)
--- NOTE | 2018-07-27 20:38 | Pulmonary Consultation ---
Date of Consultation July 27, 2018 Assessment & Plan (1) Pleural effusion: Patient had imaging done which showed bilateral pleural effusions with trace effusion left and moderate effusion on the right. Bedside ultrasound was completed and confirms that there is a window for thoracentesis if needed Per discussion with cardiology this appears to be all right sided failure Patient is on furosemide at home was a diuretic Diuretics were optimized and patient had Aldactone added At this time we will hold off on any thoracentesis or other procedure and watch for diuresis and the patient. We will follow patient daily and will repeat the bedside ultrasound tomorrow for noninvasive monitoring (2) CHF exacerbation: Cardiology consult completed by Dr. Nate Rebolledo Echocardiogram completed Patient appears to have right-sided failure Diuretics managed by cardiology Continue to follow closely. Heart failure type: unspecified Qualified Code(s): I50.9 - Heart failure, unspecified (3) Alcohol abuse: Patient admits to 6-8 beers daily Monitoring for withdrawal implemented Patient denies prior history of alcohol withdrawal Continue to monitor on telemetry (4) LIANET (obstructive sleep apnea): This is a presumed diagnosis is patient has never had any polysomnography testing Patient did have reported apnea per nursing last night and was started on BiPAP At this point patient is morbidly obese with a BMI of 36.3 and appears to fit criteria for obstructive sleep apnea Patient will need outpatient follow-up and polysomnography as well as PFTs It should be noted the patient has a diagnosis of COPD but never has any tobacco abuse history and no pulmonary function testing We will follow-up on this as an outpatient in light of patient's acute findings We will see patient again tomorrow with further follow-up Thank you for including us in the care of this patient. We will follow along with you Please refer to Dr. Ramirez's addendum for further recommendations Supervising Physician Co-Signing Physician Notes I have seen and examined this patient with Red Lechuga and agree with his assessment and plan of care. We are going to continue with current plan of care as prescribed. Bedside ultrasound was completed. On right side there is collection of some pleural effusion. The patient is also being diuresed at this time. We will repeat the chest x-ray tomorrow and if there is still persistent of pleural effusion will consider doing the thoracentesis. Thank you. Dr. Leonidas Ramirez. History of Present Illness Reason for Consultation: Evaluate for pleural effusion and obstructive sleep apnea Requesting Physician: Dr. Burgess Attending Physician: Anjel Burgess DO History of Present Illness This is a 73-year-old male that was admitted for anasarca and found to have small pleural effusions bilaterally. The pleural effusion on the right was significant greater than the effusion on the left. We were asked to evaluate the patient for thoracentesis as well as his other pulmonary issues. The patient states that he has never had pleural effusions before that he is aware of and has not had thoracentesis. He currently has no shortness of breath but did have shortness of breath last night. He was placed on BiPAP which provided relief to the patient. Patient does have significant right-sided heart failure per cardiology. Diuretics were changed today and Aldactone was added. Patient is currently in bedside chair and reports no shortness of breath, chest pain, pleuritic pain, back pain at this time. Patient does state that he had a recent weight gain of up to 30 pounds over the last several months. He also has noticed increasing lower extremity edema which is symmetrical. As an outpatient the patient responded initially to diuretics but then continued to gain weight. He has noticed increased shortness of breath especially with ambulation around the home. Patient does consume 6-8 beers per day. He denies significant change in his diet but does add salt to most of his foods. The patient denies smoking but does have a history of tobacco abuse with snuff. He denies any pulmonary disease. He denies any history of pulmonary function testing or follow-up with the pulmonary office in the past. The patient is morbidly obese with a BMI of 36.3. He denies any polysomnography in the past. EEG revealed a pH of 7.44, PCO2 of 38, PaO2 of 79, HCO3 of 25, O2 saturation of 96.3%, and an ABG base excess of 1.3. This was on 4 L of supplemental O2. Patient states that he is tolerating supplemental therapy. Allergies Allergy/AdvReac Type Severity Reaction Status Date / Time acetaminophen [From Vicodin] Allergy Hives Verified 07/26/18 17:05 hydrocodone [From Vicodin] Allergy Hives Verified 07/26/18 17:05 Home Medications Home Medications Medication Instructions Recorded Confirmed Type aspirin 81 mg PO DAILY 07/26/18 07/26/18 History atenolol 50 mg PO DAILY 07/26/18 07/26/18 History furosemide 40 mg PO BID 07/26/18 07/26/18 History gabapentin 300 mg PO TID 07/26/18 07/26/18 History potassium chloride 10 meq PO BID 07/26/18 07/26/18 History simvastatin 40 mg PO DAILY 07/26/18 07/26/18 History tramadol 50 mg PO Q6H PRN 07/26/18 07/26/18 History vit C,P-Rb-ulnqz-lutein-zeaxan 1 tab PO BID 07/26/18 07/26/18 History [PreserVision AREDS-2] Patient History Medical History CHF (congestive heart failure) (Chronic) Hypertension (Chronic) Alcohol abuse (Suspected) No significant family history No significant past surgical history Social History marital status: Current Living Situation: Spouse Other Information That Helps Us Care for You: No Feels Safe at Home: Yes Smoking Status: Former smoker Tobacco Type: smokeless tobacco Do You Dip or Chew Tobacco: Yes Second Hand Exposure: No Tobacco Cessation Education Requested by Patient: No Hx Alcohol Use: Yes Alcohol type: beer Alcohol Intake Frequency: 3 or more drinks per day Hx Substance Use: No Beliefs That Will Affect Care: None Communication Ability: Effective Review of Systems A total of 12 systems was reviewed and is negative other than as listed above in the HPI Physical Exam 2 Vital Signs (Past 24 Hours): Last Vital Signs Temp 36.8 C 07/27/18 19:29 Pulse 58 L 07/27/18 19:29 Resp 18 07/27/18 19:29 BP 135/83 07/27/18 19:29 Pulse Ox 96 07/27/18 19:29 Physical Exam: GENERAL : No acute distress EYES: No icterus, gaze conjugate NOSE: No evidence of epistaxis MOUTH: No lesions or candidiasis NECK: Supple LUNGS: CTA B/L, no wheezes, rales or rhonchi HEART: Regular, rate controlled ABDOMEN: Soft, NT, ND, BS Present EXTREMITIES: No LE edema, pedal pulses intact NEURO: A&OX3 Results & Data Laboratory Results Abnormal lab results 07/27/18 07/27/18 07/27/18 Range/Units 03:56 03:56 03:56 RBC 3.91 L (4.7-6.1) M/uL Hgb 12.2 L (14.0-18.0) g/dL Hct 36.3 L (42-52) % RDW Std Deviation 49.6 H (36.4-46.3) fL RDW Coeff of Brooks 14.6 H (11.5-14.5) % MPV 10.9 H (7.4-10.4) fL Atkinson # (Auto) 0.64 H (0.11-0.59) K/uL ABG pO2 120 H (80-95) mm/Hg ABG HCO3 26 H (19-24) mmol/L ABG O2 Saturation 98.5 H (90-95) % Troponin I 0.052 H* (0-0.045) ng/ml 07/27/18 07/27/18 Range/Units 09:47 12:26 RBC (4.7-6.1) M/uL Hgb 12.2 L (14.0-18.0) g/dL Hct 36.0 L (42-52) % RDW Std Deviation (36.4-46.3) fL RDW Coeff of Brooks (11.5-14.5) % MPV (7.4-10.4) fL Atkinson # (Auto) (0.11-0.59) K/uL ABG pO2 79 L (80-95) mm/Hg ABG HCO3 25 H (19-24) mmol/L ABG O2 Saturation 96.3 H (90-95) % Troponin I (0-0.045) ng/ml Diagnostic Findings BILATERAL LOWER EXTREMITY VENOUS DOPPLER CLINICAL HISTORY: leg swelling COMPARISON STUDY: No previous studies for comparison. TECHNIQUE: Sonography of the deep venous system of the bilateral lower extremities was performed. Compression and augmentation were evaluated. FINDINGS: The bilateral common femoral, superficial femoral and popliteal veins were compressible. Augmentation was normal. Flow was shown within the deep calf vessels although the calf vessels were suboptimally assessed due to lower extremity edema. IMPRESSION: No evidence of deep venous thrombus within the bilateral lower extremities. Electronically signed by: Prabhu Peraza M.D. 07/27/2018 7:[address] angio chest PE protocol CLINICAL HISTORY: 73 years-old Male presenting with chest pain, shortness of breath, leg swelling and fluid retention, clinical concern for pulmonary embolus. TECHNIQUE: Multidetector CT angiography of the chest was performed after administration of intravenous contrast. 3-D volumetric and/or maximum intensity projection (MIP) images were subsequently reconstructed for review. IV contrast : 89 mL of Optiray 320. One or more dose lowering techniques were used consistent with the principles of ALARA (as low as reasonably achievable), including automatic exposure control, mA or kV adjustment to individual patient size, and/or use of iterative reconstruction. COMPARISON: None. CT DOSE (mGy.cm): The estimated cumulative dose is 1335.06 mGy.cm. FINDINGS: [employer] topogram: Cholecystectomy clips. Pulmonary vasculature: The study is suboptimal for the assessment of the pulmonary vascular tree secondary to timing of the contrast bolus and respiratory motion artifact. Allowing for limited image quality, no central filling defect to suggest pulmonary embolus. Main pulmonary artery is not enlarged. No flattening of the interventricular septum. No intracardiac filling defect. No reflux of contrast into the hepatic veins. Remaining chest: On soft tissue windows, normal thyroid. Diffuse body wall edema. Subcentimeter prominent mediastinal lymph nodes. No hilar, axillary, or supraclavicular lymphadenopathy. Trace atherosclerosis of the aorta. Mild multichamber enlargement of the heart. Coronary artery calcification. Moderate to large right simple appearing pleural effusion. Small left pleural effusion. No pericardial effusion. Hepatic steatosis. Nodular contour of the liver. Cholecystectomy clips. On lung windows, no pneumothorax. Central airways patent. Dependent consolidation volume loss in the right lower lobe and to a lesser extent in the left lower lobe. No other focal infiltrate or nodule. Respiratory motion artifact degrades diagnostic evaluation of the lung parenchyma. On bone windows, normal osseous structures. IMPRESSION: 1. Allowing for suboptimal image quality, no evidence of pulmonary embolus. 2. Moderate to large right and small left pleural effusions with passive atelectasis, right greater than left. 3. Volume overload evidenced by pleural effusions, body wall edema, and mild cardiomegaly. 4. Nodular contour of the liver suggested. This may indicate developing fibrosis in the setting of hepatic steatosis versus a cardiac etiology ( congestive hepatopathy). 5. Likely reactive mediastinal lymph nodes. Attention on follow-up. Electronically signed by: Ryan Alexander M.D. 07/26/2018 10:50 PM
[2018-07-27] MEDS: METOPROLOL SUCC 25MG EXT REL TAB PO SCH (20:44)
[2018-07-27] MEDS: ACETAMINOPHEN 325 MG TAB PO PRN (22:30)
[2018-07-27] MEDS: TRAMADOL HCL 50 MG TABLET PO PRN (22:31)
[2018-07-28] MEDS: GABAPENTIN 600 MG TAB PO SCH (03:42)
[2018-07-28] MEDS: NITROGLYCERIN 2% OINTMENT 30GM TUBE EXT SCH ×4 (05:17→23:48)
[2018-07-28 07:28] LABS: Albumin Level 3.2 gm/dl (3.4-5.0); BUN Creatinine Ratio 9.3 (10-20); Bilirubin,Total 1.1 mg/dl (0.2-1); Calcium 8.5 mg/dl (8.5-10.1); Creatinine Clr Calc Pharmacy 42.5 ml/min; Est GFR (African American) 37.5; Est GFR (Non-African American) 32.4; Globulin 3.3 gm/dl (2.5-4.0); Potassium 3.7 mmol/L (3.5-5.1); Total Protein 6.5 gm/dl (6.4-8.2)
[2018-07-28] MEDS: FOLIC ACID 1 MG TAB PO SCH (08:42)
[2018-07-28] MEDS: POTASSIUM CHLORIDE 20 MEQ TABCR PO SCH (08:43)
[2018-07-28] MEDS: MULTIVITAMIN TAB PO SCH (08:45)
[2018-07-28] MEDS: THIAMINE HCL 100 MG TAB PO SCH (08:46)
[2018-07-28] MEDS: SIMVASTATIN 40 MG TAB PO SCH (08:47)
[2018-07-28] MEDS: FUROSEMIDE 60 MG in SYRINGE 0 ML IV SCH ×2 (08:52→19:21)
[2018-07-28] MEDS: LISINOPRIL 10 MG TAB PO SCH (08:54)
[2018-07-28] MEDS: METOPROLOL SUCC 25MG EXT REL TAB PO SCH ×2 (08:54→19:21)
--- NOTE | 2018-07-28 08:58 | Nephrology Consultation ---
Date of Consultation July 28, 2018 Assessment & Plan (1) RUBIN (acute kidney injury): -creatinine from baseline 0.9 on 07/27 > 2.0 today; chemistries acceptable for now; likely combination of IV contrast and intense diuresis/ new peter and spironolactone; also some lower SBP noted in 90s past 24 hrs (had been 140-160s SBP previously) >with brown urine presume ATN until proven otherwise; w/ respiratory status already tenuous, would not give iv fluids at this time but simply hold diuretics -held lisinopril and spironolactone (did get dose of latter this am) -cont lasix 60 IV bid for now>> recheck bmp this evening and if worse will hold that too >> creatinine worse at 2.3 and will hold lasix in am; had dose this evening already >> plan to restart diuretic in am based on labs -ordered uacm and prot/creat ratio -depending on labs this evening > will focus either on stabilizing renal function or on further diuresis/HF med optimization -given complexities of volume and respiratory status and now w/ rapidly progressive RUBIN, cannot rule out need for dialysis discussion at least this admission but hopefully will not come to that; please allow renal to discuss w/ pt if/when needed Present on Admission?: No (2) Anasarca: -ordered FR 1.8 L and < 2gm daily Na diet -daily bmp -f/u prot/creat ratio later after renal function stabilized but will also assess now w/ RUBIN >> evaluate for nephrotic syndrome versus complications of R HF; given low albumin w/o other evidence of liver dysfunction high index of suspicion for NS -ensure daily standing wt >> so ordered Present on Admission?: Yes History of Present Illness Reason for Consultation: volume overload Requesting Physician: Dr Burgess Attending Physician: Anjel Burgess, DO History of Present Illness 73 y/o M whom I'm asked to see for volume overload mgt. PMH includes HTN, HL, active EtOH abuse (3-8 beers daily), active chew tobacco abuse, chronic back pain. He was admitted here from home after presenting to pcp w/ c/o worsening sob, edema, and what he tells me was 68 lb wt gain in one week (had previously reported 20 lb wt gain in 1 wk) . He was taking daily naproxen prior to admission (per his med list though pt can give me few details) as well as bid lasix 40 mg. his presenting creatinine on 07/26 was 0.9, same on 07/27; then today up to 2.0. He had CT PE protocol on 07/26 > no PE but BL pl effusions seen. He had a dose of lisinopril 10 mg yesterday and a dose of spironolactone this am. he takes neither of these at home. he does not use home 02 but has been on 3-4 L here. pulmonary is following >> he has presumptive sleep apnea based on TTE, on pulm eval, on nursing evaluations but refusing cpap in hospital and refusing OP sleep study/ further eval. Allergies Allergy/AdvReac Type Severity Reaction Status Date / Time acetaminophen [From Vicodin] Allergy Hives Verified 07/26/18 17:05 hydrocodone [From Vicodin] Allergy Hives Verified 07/26/18 17:05 Home Medications Home Medications Medication Instructions Recorded Confirmed Type aspirin 81 mg PO DAILY 07/26/18 07/26/18 History atenolol 50 mg PO DAILY 07/26/18 07/26/18 History furosemide 40 mg PO BID 07/26/18 07/26/18 History gabapentin 300 mg PO TID 07/26/18 07/26/18 History potassium chloride 10 meq PO BID 07/26/18 07/26/18 History simvastatin 40 mg PO DAILY 07/26/18 07/26/18 History tramadol 50 mg PO Q6H PRN 07/26/18 07/26/18 History vit C,C-En-togqa-lutein-zeaxan 1 tab PO BID 07/26/18 07/26/18 History [PreserVision AREDS-2] Patient History Medical History CHF (congestive heart failure) (Chronic) Hypertension (Chronic) Alcohol abuse (Suspected) No significant family history No significant past surgical history Family History Other Breast cancer Lung cancer Pancreatic cancer Social History marital status: Current Living Situation: Spouse Other Information That Helps Us Care for You: No Feels Safe at Home: Yes Smoking Status: Former smoker Tobacco Type: smokeless tobacco Do You Dip or Chew Tobacco: Yes Second Hand Exposure: No Tobacco Cessation Education Requested by Patient: No Hx Alcohol Use: Yes Alcohol type: beer Alcohol Intake Frequency: 3 or more drinks per day Hx Substance Use: No Beliefs That Will Affect Care: None Communication Ability: Effective Review of Systems Constitutional: + fatigue, + weakness and + weight gain; no fever Eyes: no worsening vision Ear, Nose, Mouth, Throat: no dry mouth, no dental pain and no dental caries states he can do w/o his beer but can't go w/o his snuff Respiratory: + cough and + dyspnea on exertion Cardiovascular: + dyspnea on exertion and + edema; no chest pain, no orthopnea and no palpitations Gastrointestinal: + bloating and + early satiety; no abdominal pain, no nausea, no vomiting and no diarrhea/loose stools Genitourinary (Male): + difficulty urinating and + decreased urination; no dysuria, no urinary frequency, no urinary hesitancy and no urinary incontinence Musculoskeletal: + joint pain, + swelling, + stiffness, + limited range of motion and + myalgia Integumentary: no rash and no non-healing lesions Neurologic: + gait abnormality (d/t edema) and + unsteadiness; no confusion Psychiatric: no behavioral changes Endocrine: + fatigue and + polyuria (since arrival here) Hematologic / Lymphatic: no easy bleeding Physical Exam 2 Vital Signs (Past 24 Hours): Last Vital Signs Temp 37.1 C 07/28/18 08:07 Pulse 64 07/28/18 08:07 Resp 18 07/28/18 08:07 BP 114/62 07/28/18 08:07 Pulse Ox 96 07/28/18 08:07 Constitutional: well developed, well nourished, + acute distress (very slight sob w/ speech, w/ exam maneuvers), cooperative and + edematous on 3L 02NC Eyes: EOM intact bilaterally ENMT: Ears: no external ear abnormality Nose: no external nose abnormality Mouth: + dry oral mucous membranes and + poor dentition Neck: no nuchal rigidity Respiratory: + labored breathing (w/o kaci respiratory distress) and + cough (w/ deep inspiration) Auscultation: + diminished lung sounds Cardiovascular: Rate/Rhythm: regular rate (HS distant) and regular rhythm Extremities: + edema (anasarca) Gastrointestinal (Abdomen): Inspection/Auscultation: + abdomen distended and normal bowel sounds Percussion/Palpation: abdomen soft; abdomen nontender sacral edema Musculoskeletal: Extremities: strength 5/5 throughout cassidy, slight finger tip cyanosis Skin: no rashes, warm and dry Neurologic: cassidy, fluent speech, no tremor Psychiatric: Orientation: alert and oriented x 3 Affect: + flat affect Insight: + limited insight Genitourinary: balderas w/ dark yellow/ near-brown urine Results & Data Laboratory Results Abnormal lab results 07/28/18 Range/Units 06:34 BUN 19 H D (7-18) mg/dl Creatinine 2.00 H D (0.6-1.4) mg/dl BUN/Creatinine Ratio 9.3 L (10-20) Total Bilirubin 1.1 H (0.2-1) mg/dl Albumin 3.2 L (3.4-5.0) gm/dl Diagnostic Findings PE protocol CT chest 07/26 1. Allowing for suboptimal image quality, no evidence of pulmonary embolus. 2. Moderate to large right and small left pleural effusions with passive atelectasis, right greater than left. 3. Volume overload evidenced by pleural effusions, body wall edema, and mild cardiomegaly. 4. Nodular contour of the liver suggested. This may indicate developing fibrosis in the setting of hepatic steatosis versus a cardiac etiology ( congestive hepatopathy). 5. Likely reactive mediastinal lymph nodes. Attention on follow-up. dopplers BLE > no dvt abd u/s no ascites (liver not evaluated) cxr today 1. Small layering right pleural effusion and trace left pleural effusion. 2. Right greater than left bibasilar atelectasis, which is slightly decreased from prior. 3. Cardiomegaly with volume overload. No kaci pulmonary edema. TTE 07/27/18 mild CLVH; EF 60%; normal biV systolic function/motion; RV PSP 50-60 mm Hg
[2018-07-28] MEDS ORDERED: SPIRONOLACTONE 25 MG TAB PO SCH (09:00)
--- NOTE | 2018-07-28 09:12 | XRay Report ---
XR chest 1V portable CLINICAL HISTORY: 73 years-old Male presenting with Pleural effusions, hypoxia. TECHNIQUE: Portable upright AP view of the chest was obtained. COMPARISON: 07/26/2018. FINDINGS: Cardiac silhouette mildly enlarged. Slight interval improved aeration of the right lung base though a small layering right pleural effusion remains. Trace left pleural effusion. Right greater than left bibasilar opacity. Mild pulmonary vascular prominence. No pneumothorax. Osseous structures normal. Se veral external leads overlie the right upper quadrant degrading evaluation this region. IMPRESSION: 1. Small layering right pleural effusion and trace left pleural effusion. 2. Right greater than left bibasilar atelectasis, which is slightly decreased from prior. 3. Cardiomegaly with volume overload. No kaci pulmonary edema. Electronically signed by: Ryan Alexander M.D. 07/28/2018 9:10 AM
--- NOTE | 2018-07-28 12:21 | Pulmonology Progress Note ---
Date of Service July 28, 2018 Assessment & Plan (1) CHF exacerbation: Patient with acute on chronic combined systolic and diastolic congestive heart failure Echocardiogram completed Cardiology following Discussed with Dr. Nate Rebolledo Diuretics modified to include Aldactone Continue diuretics and management per cardiology Heart failure type: unspecified Qualified Code(s): I50.9 - Heart failure, unspecified (2) Alcohol abuse: Patient consumes 6-8 beers daily Discussed abstention of alcohol secondary to probable sleep apnea Continue thiamine and folic acid Follow for withdrawal (3) Pleural effusion: Chest x-ray with some improvement of the right-sided pleural effusion Continue titrate O2 We will continue to hold off on thoracentesis at this time as patient seems to be diuresing well with a cumulative intake of -3 L this admission Continue to monitor for clinical signs of compressive atelectasis secondary to pleural effusion (4) LIANET (obstructive sleep apnea): Patient has probable obstructive sleep apnea but has never had polysomnography exam Physical examination reveals a mallampati score of 3 Patient noted to have apnea at night per nursing Patient is refusing CPAP at night Offered outpatient follow-up with pulmonology and sleep medicine and patient refused Offered outpatient polysomnography and patient refused Continue to encourage outpatient follow-up for testing And does not meet criteria for CPAP or trilogy system without polysomnography as PCO2 is only 38 Check nocturnal hypoxia as patient most likely needs supplemental oxygen at night Would be glad to schedule follow up as an outpatient if patient is desirable of that Supervising Physician Co-Signing Physician Notes I have seen and examined this patient with Red Lechuga and agree with his assessment and plan of care. We are going to continue with current plan of care as prescribed. Will sign off the patient, please call us if you need us or any questions. Thank you. Dr. Leonidas Ramirez. Subjective Patient is lying in bed and states that shortness of breath has improved since yesterday. Patient has negative ins and outs of almost 3 L Patient has some production of sputum which is clear to yellow Patient denies fever, chills, sweats, rigors. No cough. No chest pain. No back pain. No flank pain. The patient has no acute complaints. When asked if the patient used his BiPAP machine last night he stated that he cannot tolerate it secondary to claustrophobia. He stated that he is unwilling to attempt to getting used to the mask Physical Exam 2 Vital Signs (Past 24 Hours): Last Vital Signs Temp 36.5 C 07/28/18 11:59 Pulse 71 07/28/18 11:59 Resp 20 07/28/18 11:59 BP 126/57 L 07/28/18 11:59 Pulse Ox 96 07/28/18 11:59 Physical Exam: GENERAL : No acute distress. EYES: No icterus, gaze conjugate NOSE: No evidence of epistaxis MOUTH: No lesions or candidiasis. Malompati score of 3 NECK: Supple. No stridor LUNGS: Bibasilar rales. Lung sounds are now appreciable to the bases. No appreciable wheezes HEART: Regular, rate controlled ABDOMEN: Soft, NT, ND, BS Present EXTREMITIES: No LE edema, pedal pulses intact NEURO: A&OX3 Results & Data Laboratory Results Abnormal lab results 07/27/18 07/28/18 Range/Units 12:26 06:34 ABG pO2 79 L (80-95) mm/Hg ABG HCO3 25 H (19-24) mmol/L ABG O2 Saturation 96.3 H (90-95) % BUN 19 H D (7-18) mg/dl Creatinine 2.00 H D (0.6-1.4) mg/dl BUN/Creatinine Ratio 9.3 L (10-20) Total Bilirubin 1.1 H (0.2-1) mg/dl Albumin 3.2 L (3.4-5.0) gm/dl Diagnostic Findings XR chest 1V portable CLINICAL HISTORY: 73 years-old Male presenting with Pleural effusions, hypoxia. TECHNIQUE: Portable upright AP view of the chest was obtained. COMPARISON: 07/26/2018. FINDINGS: Cardiac silhouette mildly enlarged. Slight interval improved aeration of the right lung base though a small layering right pleural effusion remains. Trace left pleural effusion. Right greater than left bibasilar opacity. Mild pulmonary vascular prominence. No pneumothorax. Osseous structures normal. Several external leads overlie the right upper quadrant degrading evaluation this region. IMPRESSION: 1. Small layering right pleural effusion and trace left pleural effusion. 2. Right greater than left bibasilar atelectasis, which is slightly decreased from prior. 3. Cardiomegaly with volume overload. No kaci pulmonary edema. Electronically signed by: Ryan Alexander M.D. 07/28/2018 9:10 AM
--- NOTE | 2018-07-28 12:35 | Hospitalist Progress Note ---
Date of Service July 28, 2018 Assessment & Plan (1) CHF (congestive heart failure): A. fib, unknown duration, rate controlled RUBIN c Hypotension Transient substernal pain-No PE or DVT Pleural Effusions-IV Lasix, no tap for now hypertension, slightly elevated, continue to monitor Abdominal distention possible ascites LE swelling secondary to CHF Chronic Systolic and Diastolic LE claudication symptoms rule out PAD Ongoing alcohol abuse Past tobacco abuse New onset anemia, occult GI bleed No previous GI endoscopies in the past PCU Continue Diuretics, Hold Lasix and Aldactone Strict I/Os, daily weights, CHF education, fluid restriction TTE EF 60-65%, Cardio on case RE CHF, new onset A. fib/Bradycardia Continue home beta-chauncey for A. fib, anticoagulation currently precluded by occult GI bleed ABIs RE claudication DVT prophylaxis. SCDs RE occult GI bleed causing anemia GI to See Pulm on case Renal eval, vol overload, Edema RUBIN Continue BIPAP Down 10 Kg since admission DNR Patient's daughter requesting updates from providers. Digna Rusty, contact #[phone]. Subjective RN reports apneic spells, desaturating in the 70s, transient bradycardia in the 40s during sleep. AP Episodic bradycardia likely secondary to undiagnosed LIANET Decrease maintenance beta-chauncey dose outpatient sleep study Inpatient CPAP at bedtime Pulmonology consultation regarding inpatient apneic events with hypoxemia. ROS-No Headache, No Visual Changes, No Fever, No Chills, No Neck Pain or Stiffness, No Chest Pain, No Palpitations, No SOB, No JUAN, No Cough, No Sputum, No Wheezing, No Abdominal Pain, No Diarrhea, No Hematemesis, No Hemoptysis, No Unexpected Weight Loss, No Flank pain, No Melena, No Hematochezia, No Frequency , No Urgency, No Burning, No Hematuria, No Rashes, No Diaphoresis. Appetite is Normal Physical Exam Gen- On BIPAP, Sleepy, NAD, Afebrile Head-NCAT, EOMI, PERRLA, Anicteric Sclera, No Posterior Pharyngeal Erythema Neck-Supple, No JVD, No Thyromegaly, No Masses, No LAD, No Bruits Lungs-Clear to Auscultation Bilaterally, No Rales, No Rhonchi, No Wheezing, No Crepitus Chest-No S4, +S1, +S2, No S3, No Murmurs, No Rubs, No Gallops, + Ectopy Abdomen-Soft, Obese, Bowel Sounds Present, Non Tender, Non Distended, No Hepatomegaly, No Splenomegaly, No Palpable Masses, No Rebound, No Rigidity, No Guarding Musculoskeletal-Full Range of Motion Bilaterally, No CVAT Extremities-No Cyanosis, No Clubbing, + Edema B/L Nuero-Cranial Nerves II-XII grossly intact, Motor WNL, DTRs WNL, Strength WNL, No Focal Psych-Normal Mood Physical Exam 2 Vital Signs (Past 24 Hours): Last Vital Signs Temp 36.5 C 07/28/18 11:59 Pulse 71 07/28/18 11:59 Resp 20 07/28/18 11:59 BP 126/57 L 07/28/18 11:59 Pulse Ox 96 07/28/18 11:59 Results & Data Laboratory Results Current Diagnoses Alcohol abuse, uncomplicated (07/26/18) Obstructive sleep apnea (adult) (pediatric) (07/26/18) Heart failure, unspecified (07/26/18) Pleural effusion, not elsewhere classified (07/26/18) Allergies acetaminophen [From Vicodin] Allergy (Verified 07/26/18 17:05) Hives hydrocodone [From Vicodin] Allergy (Verified 07/26/18 17:05) Hives Height/Weight/Isolation Height 5 ft 10 in Weight 115.4 kg Chemistry 07/26/18 07/27/18 07/28/18 17:25 03:56 06:34 Sodium 133 L 137 137 Potassium 4.1 3.8 3.7 Chloride 101 104 102 Carbon Dioxide 28 25 27 Anion Gap 4.0 8.0 7.0 BUN 11 11 19 H D Creatinine 0.91 0.89 2.00 H D Glucose 92 87 81
[2018-07-28] MEDS: ACETAMINOPHEN 325 MG TAB PO PRN (13:26)
[2018-07-28 17:39] LABS: Calcium 8.5 mg/dl (8.5-10.1); Creatinine Clr Calc Pharmacy 37.1 ml/min; Est GFR (African American) 31.9; Est GFR (Non-African American) 27.5; Potassium 4.1 mmol/L (3.5-5.1)
--- NOTE | 2018-07-28 18:34 | Cardiology Progress Note ---
Date of Service July 28, 2018 Assessment & Plan (1) Right heart failure: Multifactorial but suspect hypoventilation/sleep apnea as etiology with elevated pulmonary pressures present on echocardiography Patient initially has responded to diuretics O with decline in renal function. Appreciate nephrology input Would continue low-dose Toprol 12.5 g twice per day. Avoid BEBETO inhibitor in this setting Continue oxygen supplementation Note: EKG and telemetry since admission do not demonstrate atrial fibrillation. Inaccurate interpretation on first tracing (2) LIANET (obstructive sleep apnea): Observed by staff patient declined trial of CPAP (3) RUBIN (acute kidney injury): (4) Edema: (5) Alcohol abuse: Subjective Patient seen and examined chart medications telemetry reviewed. Did not tolerate trial of CPAP last night. Has diuresed some, though with compromise of renal function. No chest pains or tachypalpitations remains in sinus rhythm as on admission Physical Exam 2 Vital Signs (Past 24 Hours): Last Vital Signs Temp 37.2 C 07/28/18 15:41 Pulse 62 07/28/18 15:41 Resp 17 07/28/18 15:41 BP 97/59 L 07/28/18 15:41 Pulse Ox 94 07/28/18 15:41
[2018-07-28 19:54] LABS: Appearance Urine Cloudy (Clear); Bacteria Urine Automated Negative (Negative); Blood Urine 3+ (Negative); Color Urine Dark Yellow; Epithelial Cell Urine Auto >30 /lpf (0-5); Glucose Urine UA Negative (Negative); Ketones Urine Trace (Negative); Leukocyte Esterase Urine 1+ (Negative); Nitrite Urine Negative (Negative); Protein Urine 1+ (Negative); RBC Urine Automated >30 /hpf (0-4); Specific Gravity Urine 1.023 (1.000-1.030); Urobilinogen Urine Negative (Negative)
[2018-07-28 20:09] LABS: Bilirubin Urine Negative (Negative); Ictotest Urine Negative (Negative)
[2018-07-29] MEDS ORDERED: GABAPENTIN 600 MG TAB PO SCH
[2018-07-29] MEDS: ACETAMINOPHEN 325 MG TAB PO PRN ×3 (03:28→17:58)
[2018-07-29] MEDS: NITROGLYCERIN 2% OINTMENT 30GM TUBE EXT SCH ×4 (05:59→23:26)
[2018-07-29 07:04] LABS: Basophils # (auto) 0.05 K/uL (0-0.2); Basophils % (auto) 0.7 %; Eosinophils # (auto) 0.25 K/uL (0-0.5); Eosinophils % (auto) 3.3 %; Hematocrit (blood only) 36.8 % (42-52); Hemoglobin 12.1 g/dL (14.0-18.0); Immature Granulocytes # (auto) 0.02 K/uL (0.00-0.02); Immature Granulocytes % (auto) 0.3 %; Lymphocytes # (auto) 1.39 K/uL (1.2-3.4); Lymphocytes % (auto) 18.1 %; Mean Corpuscular Hgb Conc 32.9 g/dL (32-36); Mean Corpuscular Volume 94.1 fL (80-100); Mean Platelet Volume 11.2 fL (7.4-10.4); Monocytes # (auto) 0.68 K/uL (0.11-0.59); Monocytes % (auto) 8.9 %; Neutrophils # (auto) 5.28 K/uL (1.4-6.5); Neutrophils % (auto) 68.7 %; Platelet Count 148 K/uL (130-400); RDW Coefficient of Variation 14.8 % (11.5-14.5); RDW Standard Deviation 50.8 fL (36.4-46.3); Red Blood Count 3.91 M/uL (4.7-6.1); White Blood Count 7.67 K/uL (4.8-10.8)
[2018-07-29 07:39] LABS: Albumin Level 3.5 gm/dl (3.4-5.0); BUN Creatinine Ratio 13.9 (10-20); Calcium 8.6 mg/dl (8.5-10.1); Creatinine Clr Calc Pharmacy 46.3 ml/min; Est GFR (African American) 41.8; Est GFR (Non-African American) 36.1; Potassium 3.9 mmol/L (3.5-5.1)
[2018-07-29 07:42] LABS: Globulin 3.6 gm/dl (2.5-4.0); Total Protein 7.1 gm/dl (6.4-8.2)
[2018-07-29] MEDS: POTASSIUM CHLORIDE 20 MEQ TABCR PO SCH (07:54)
[2018-07-29] MEDS: FOLIC ACID 1 MG TAB PO SCH (07:54)
[2018-07-29] MEDS: FUROSEMIDE 60 MG in SYRINGE 0 ML IV SCH (07:55)
[2018-07-29] MEDS: MULTIVITAMIN TAB PO SCH (07:55)
[2018-07-29] MEDS: SIMVASTATIN 40 MG TAB PO SCH (07:55)
[2018-07-29] MEDS: METOPROLOL SUCC 25MG EXT REL TAB PO SCH ×2 (07:55→19:57)
[2018-07-29] MEDS: THIAMINE HCL 100 MG TAB PO SCH (07:56)
--- NOTE | 2018-07-29 08:17 | Nephrology Progress Note ---
Date of Service July 29, 2018 Assessment & Plan (1) RUBIN (acute kidney injury): -creatinine from baseline 0.9 on 07/27 > 2.3 yesterday evening adn 1.8 today ; chemistries remain acceptable for now; likely combination of IV contrast and intense diuresis/ new peter and spironolactone; also some blood pressure lability may contribute; no proteinuria >w/ respiratory status already tenuous, would not give iv fluids at this time but simply hold diuretics -brown urine from highly concentrated specimen + gross hematuria (likely from balderas placement in elderly man) -hold lisinopril and spironolactone (did get dose of latter 2/7 am) until renal function stabilizes -changed lasix to 30 mg IV q 6 h (2) Anasarca: -cont FR 1.8 L and < 2gm daily Na diet -daily bmp -presume from complications of R HF /+ liver failure -ensure daily standing wt >> so ordered Subjective no proteinuria; + ketoniuria though and mild balderas trauma; still on 02nc; no c/ o except wants his snuff; not doing standing wts. no n/v; notes no difference in anasarca Physical Exam 2 Vital Signs (Past 24 Hours): Last Vital Signs Temp 36.9 C 07/29/18 03:39 Pulse 63 07/29/18 05:56 Resp 18 07/29/18 03:39 BP 155/54 H 07/29/18 05:56 Pulse Ox 95 07/29/18 03:39 Constitutional: well developed, well nourished, + acute distress (very slight sob w/ speech, w/ exam maneuvers), cooperative and + edematous Eyes: EOM intact bilaterally ENMT: Ears: no external ear abnormality Nose: no external nose abnormality Mouth: + dry oral mucous membranes and + poor dentition Neck: no nuchal rigidity Respiratory: + labored breathing (much less so today and still w/o kaci respiratory distress) Auscultation: + diminished lung sounds (fátima R mulligan and L base), + crackles and + wheezes Cardiovascular: Rate/Rhythm: regular rate (HS distant) and regular rhythm Extremities: + edema (anasarca) Gastrointestinal (Abdomen): Inspection/Auscultation: + abdomen distended and normal bowel sounds Percussion/Palpation: abdomen soft; abdomen nontender Musculoskeletal: Extremities: strength 5/5 throughout Skin: no rashes, warm and dry Neurologic: cassidy, fluent speech Psychiatric: Orientation: alert and oriented x 3 Affect: + flat affect Insight: + limited insight Genitourinary: balderas w/ yellow urine Results & Data Laboratory Results Abnormal lab results 07/28/18 07/28/18 07/28/18 Range/Units 17:07 19:30 19:30 RBC (4.7-6.1) M/uL Hgb (14.0-18.0) g/dL Hct (42-52) % RDW Std Deviation (36.4-46.3) fL RDW Coeff of Brooks (11.5-14.5) % MPV (7.4-10.4) fL Barnes # (Auto) (0.11-0.59) K/uL Sodium 134 L (136-145) mmol/L BUN 23 H (7-18) mg/dl Creatinine 2.29 H (0.6-1.4) mg/dl Urine Appearance Cloudy H (Clear) Urine Protein 1+ H (Negative) Urine Ketones Trace H (Negative) Urine Blood 3+ H (Negative) Ur Leukocyte Esterase 1+ H (Negative) Urine WBC (Auto) 10-30 H (0-5) /hpf Urine RBC (Auto) >30 H (0-4) /hpf U Epithel Cells (Auto) >30 H (0-5) /lpf U Random Total Protein 65.0 H (0-11.9) mg/dl 07/29/18 07/29/18 Range/Units 06:37 06:37 RBC 3.91 L (4.7-6.1) M/uL Hgb 12.1 L (14.0-18.0) g/dL Hct 36.8 L (42-52) % RDW Std Deviation 50.8 H (36.4-46.3) fL RDW Coeff of Brooks 14.8 H (11.5-14.5) % MPV 11.2 H (7.4-10.4) fL Barnes # (Auto) 0.68 H (0.11-0.59) K/uL Sodium (136-145) mmol/L BUN 25 H (7-18) mg/dl Creatinine 1.83 H D (0.6-1.4) mg/dl Urine Appearance (Clear) Urine Protein (Negative) Urine Ketones (Negative) Urine Blood (Negative) Ur Leukocyte Esterase (Negative) Urine WBC (Auto) (0-5) /hpf Urine RBC (Auto) (0-4) /hpf U Epithel Cells (Auto) (0-5) /lpf U Random Total Protein (0-11.9) mg/dl Diagnostic Findings cxr 07/28 1. Small layering right pleural effusion and trace left pleural effusion. 2. Right greater than left bibasilar atelectasis, which is slightly decreased from prior. 3. Cardiomegaly with volume overload. No kaci pulmonary edema.
[2018-07-29] MEDS ORDERED: FUROSEMIDE 30 MG in SYRINGE 0 ML IV SCH (08:30)
--- NOTE | 2018-07-29 09:43 | Hospitalist Progress Note ---
Date of Service July 29, 2018 Assessment & Plan (1) CHF (congestive heart failure): A. fib, unknown duration, rate controlled RUBIN c Hypotension, Renal on case Transient substernal pain-No PE or DVT Pleural Effusions-IV Lasix, no tap for now hypertension, currently normotensive Abdominal distention possible ascites LE swelling secondary to CHF Chronic Systolic and Diastolic LE claudication symptoms rule out PAD Ongoing alcohol abuse Past tobacco abuse New onset anemia, occult GI bleed No previous GI endoscopies in the past PCU Continue Diuretics, Hold BEBETO-I and Aldactone Strict I/Os, daily weights, CHF education, fluid restriction TTE EF 60-65%, Cardio on case RE CHF, new onset A.fib/Bradycardia Continue home beta-chauncey for A. fib, anticoagulation currently precluded by occult GI bleed ABIs RE claudication DVT prophylaxis. SCDs RE occult GI bleed causing anemia GI to See, if Hb drops, else scope outpatient Pulm on case Renal eval, vol overload, Edema RUBIN Continue BIPAP Down 7.5 Kg since admission DNR Ms. Digna Ojeda, contact #[phone]. updated today She would refuse to go to rehab her daughter Subjective RN reports apneic spells, desaturating in the 70s, transient bradycardia in the 40s during sleep. AP Episodic bradycardia likely secondary to undiagnosed LIANET Decrease maintenance beta-chauncey dose outpatient sleep study Inpatient CPAP at bedtime Pulmonology consultation regarding inpatient apneic events with hypoxemia. ROS-No Headache, No Visual Changes, No Fever, No Chills, No Neck Pain or Stiffness, No Chest Pain, No Palpitations, No SOB, No JUAN, No Cough, No Sputum, No Wheezing, No Abdominal Pain, No Diarrhea, No Hematemesis, No Hemoptysis, No Unexpected Weight Loss, No Flank pain, No Melena, No Hematochezia, No Frequency , No Urgency, No Burning, No Hematuria, No Rashes, No Diaphoresis. Appetite is Normal, Says he feels awful every day Physical Exam Gen- On BIPAP, NAD, Afebrile, obese Head-NCAT, EOMI, PERRLA, Anicteric Sclera, No Posterior Pharyngeal Erythema Neck-Supple, No JVD, No Thyromegaly, No Masses, No LAD, No Bruits Lungs-Clear to Auscultation Bilaterally, No Rales, No Rhonchi, No Wheezing, No Crepitus Chest-No S4, +S1, +S2, No S3, No Murmurs, No Rubs, No Gallops, + Ectopy Abdomen-Soft, Obese, Bowel Sounds Present, Non Tender, Non Distended, No Hepatomegaly, No Splenomegaly, No Palpable Masses, No Rebound, No Rigidity, No Guarding Musculoskeletal-Full Range of Motion Bilaterally, No CVAT Extremities-No Cyanosis, No Clubbing, + Edema B/L Nuero-Cranial Nerves II-XII grossly intact, Motor WNL, DTRs WNL, Strength WNL, No Focal Psych-Normal Mood Physical Exam 2 Vital Signs (Past 24 Hours): Last Vital Signs Temp 36.3 C L 07/29/18 07:45 Pulse 63 07/29/18 07:45 Resp 20 07/29/18 07:45 BP 130/55 L 07/29/18 07:45 Pulse Ox 97 07/29/18 07:45 Results & Data Laboratory Results Current Diagnoses Alcohol abuse, uncomplicated (07/26/18) Obstructive sleep apnea (adult) (pediatric) (07/26/18) Right heart failure, unspecified (07/26/18) Heart failure, unspecified (07/26/18) Pleural effusion, not elsewhere classified (07/26/18) Acute kidney failure, unspecified (07/26/18) Generalized edema (07/26/18) Edema, unspecified (07/26/18) Allergies acetaminophen [From Vicodin] Allergy (Verified 07/26/18 17:05) Hives hydrocodone [From Vicodin] Allergy (Verified 07/26/18 17:05) Hives Height/Weight/Isolation Height 5 ft 10 in Weight 115 kg Chemistry 07/28/18 07/28/18 07/29/18 06:34 17:07 06:37 Sodium 137 134 L 136 Potassium 3.7 4.1 3.9 Chloride 102 101 103 Carbon Dioxide 27 26 26 Anion Gap 7.0 7.0 7.0 BUN 19 H D 23 H 25 H Creatinine 2.00 H D 2.29 H 1.83 H D Glucose 81 98 86 Urinalysis 07/28/18 19:30 Urine Color Dark Yellow Urine Appearance Cloudy H Urine pH 5.0 Ur Specific Roberts 1.023 Urine Protein 1+ H Urine Glucose (UA) Negative Urine Ketones Trace H Urine Blood 3+ H Urine Nitrite Negative Urine Bilirubin Negative Microbiology 07/28/18 19:30 Urine,Clean Catch Urine Culture - Pending
--- NOTE | 2018-07-29 12:06 | Cardiology Progress Note ---
Date of Service July 29, 2018 Assessment & Plan (1) Right heart failure: Multifactorial but suspect hypoventilation/sleep apnea as etiology with elevated pulmonary pressures present on echocardiography Patient initially has responded to diuretics O with decline in renal function. Appreciate nephrology input Would continue low-dose Toprol 12.5 g twice per day. Avoid BEBETO inhibitor in this setting Continue oxygen supplementation Note: EKG and telemetry since admission do not demonstrate atrial fibrillation. Inaccurate interpretation on first tracing Pulmonary hypertension may require further evaluation after stabilization. We will continue topical nitrates for hypertension control Diuretics and renal insufficiency management per nephrology (2) LIANET (obstructive sleep apnea): Observed by staff patient declined trial of CPAP Would continue oxygen supplementation (3) RUBIN (acute kidney injury): (4) Edema: (5) Alcohol abuse: Subjective Patient seen and examined chart medications telemetry reviewed. Did not tolerate trial of CPAP last night. Has diuresed some, though with compromise of renal function. No chest pains or tachypalpitations remains in sinus rhythm as on admission Physical Exam 2 Vital Signs (Past 24 Hours): Last Vital Signs Temp 36.2 C L 07/29/18 11:34 Pulse 74 07/29/18 11:34 Resp 20 07/29/18 11:34 BP 150/74 H 07/29/18 11:34 Pulse Ox 93 07/29/18 11:34
[2018-07-29] MEDS: FUROSEMIDE 30 MG in SYRINGE 0 ML IV SCH ×3 (12:24→23:26)
[2018-07-29] MEDS: TRAMADOL HCL 50 MG TABLET PO PRN (16:07)
[2018-07-30] MEDS: NITROGLYCERIN 2% OINTMENT 30GM TUBE EXT SCH (05:26)
[2018-07-30] MEDS: FUROSEMIDE 30 MG in SYRINGE 0 ML IV SCH ×3 (05:26→19:05)
[2018-07-30 05:41] LABS: Hematocrit (blood only) 33.7 % (42-52); Hemoglobin 11.2 g/dL (14.0-18.0); Mean Corpuscular Hgb Conc 33.2 g/dL (32-36); Mean Corpuscular Volume 94.1 fL (80-100); Mean Platelet Volume 10.6 fL (7.4-10.4); Platelet Count 129 K/uL (130-400); RDW Coefficient of Variation 14.5 % (11.5-14.5); RDW Standard Deviation 49.5 fL (36.4-46.3); Red Blood Count 3.58 M/uL (4.7-6.1); White Blood Count 5.76 K/uL (4.8-10.8)
[2018-07-30 06:12] LABS: Albumin Level 3.2 gm/dl (3.4-5.0); BUN Creatinine Ratio 18.7 (10-20); Calcium 8.7 mg/dl (8.5-10.1); Creatinine Clr Calc Pharmacy 62.2 ml/min; Est GFR (African American) 60.4; Est GFR (Non-African American) 52.1
[2018-07-30 06:15] LABS: Albumin Globulin Ratio 0.9 (0.9-2); Bilirubin,Total 0.9 mg/dl (0.2-1); Globulin 3.4 gm/dl (2.5-4.0); Total Protein 6.6 gm/dl (6.4-8.2)
--- NOTE | 2018-07-30 08:15 | Hospitalist Progress Note ---
Date of Service July 30, 2018 Assessment & Plan (1) CHF (congestive heart failure): A. fib, unknown duration, rate controlled RUBIN c Hypotension-Renal on case, BP better, Cr now normal Transient substernal pain-No PE or DVT Pleural Effusions-IV Lasix, no tap needed, Pulm on case hypertension, currently normotensive Abdominal distention Obese c BMI 36 LE swelling secondary to CHF Chronic Systolic and Diastolic, improving LE claudication symptoms rule out PAD Ongoing alcohol abuse Past tobacco abuse New onset anemia, occult GI bleed No previous GI endoscopies in the past Continue Diuretics, Hold BEBETO-I and Aldactone Strict I/Os, daily weights, CHF education, fluid restriction TTE EF 60-65%, Cardio on case RE CHF, new onset A.fib/Bradycardia Continue home beta-chauncey for A. fib, anticoagulation currently precluded by occult GI bleed ABIs RE claudication DVT prophylaxis. SCDs RE occult GI bleed causing anemia GI to See, if Hb drops, else scope outpatient Pulm on case Renal eval, vol overload, Edema RUBIN Continue BIPAP Down 10 Kg since admission DNR Ms. Digna Ojeda, contact #[phone]. updated today He would refuse to go to rehab per daughter Subjective ROS-No Headache, No Visual Changes, No Fever, No Chills, No Neck Pain or Stiffness, No Chest Pain, No Palpitations, No SOB, No JUAN, No Cough, No Sputum, No Wheezing, No Abdominal Pain, No Diarrhea, No Hematemesis, No Hemoptysis, No Unexpected Weight Loss, No Flank pain, No Melena, No Hematochezia, No Frequency , No Urgency, No Burning, No Hematuria, No Rashes, No Diaphoresis. Appetite is Normal, Says he feels awful every day Physical Exam Gen- On BIPAP, NAD, Afebrile, obese Head-NCAT, EOMI, PERRLA, Anicteric Sclera, No Posterior Pharyngeal Erythema Neck-Supple, No JVD, No Thyromegaly, No Masses, No LAD, No Bruits Lungs-Clear to Auscultation Bilaterally, No Rales, No Rhonchi, No Wheezing, No Crepitus Chest-No S4, +S1, +S2, No S3, No Murmurs, No Rubs, No Gallops, + Ectopy Abdomen-Soft, Obese, Bowel Sounds Present, Non Tender, Non Distended, No Hepatomegaly, No Splenomegaly, No Palpable Masses, No Rebound, No Rigidity, No Guarding Musculoskeletal-Full Range of Motion Bilaterally, No CVAT Extremities-No Cyanosis, No Clubbing, + Edema B/L, decreasing, Down 10 Kg since admission Nuero-Cranial Nerves II-XII grossly intact, Motor WNL, DTRs WNL, Strength WNL, No Focal Psych-Normal Mood Physical Exam 2 Vital Signs (Past 24 Hours): Last Vital Signs Temp 36.7 C 07/30/18 07:09 Pulse 67 07/30/18 07:09 Resp 18 07/30/18 07:09 BP 146/66 H 07/30/18 07:09 Pulse Ox 98 07/30/18 07:09 Results & Data Laboratory Results reviewed
[2018-07-30] MEDS: FOLIC ACID 1 MG TAB PO SCH (08:32)
[2018-07-30] MEDS: THIAMINE HCL 100 MG TAB PO SCH (08:32)
[2018-07-30] MEDS: METOPROLOL SUCC 25MG EXT REL TAB PO SCH ×2 (08:32→21:00)
[2018-07-30] MEDS: MULTIVITAMIN TAB PO SCH (08:33)
[2018-07-30] MEDS: POTASSIUM CHLORIDE 20 MEQ TABCR PO SCH (08:33)
[2018-07-30] MEDS: SIMVASTATIN 40 MG TAB PO SCH (08:33)
[2018-07-30] MEDS ORDERED: GABAPENTIN 600 MG TAB PO SCH (12:00)
--- NOTE | 2018-07-30 13:29 | Cardiology Progress Note ---
Date of Service July 30, 2018 Assessment & Plan (1) Right heart failure: Multifactorial but suspect hypoventilation/sleep apnea as etiology with elevated pulmonary pressures present on echocardiography Patient initially has responded to diuretics O with decline in renal function. Appreciate nephrology input Would continue low-dose Toprol 12.5 g twice per day. Avoid BEBETO inhibitor in this setting Continue oxygen supplementation Pulmonary hypertension may require further evaluation after stabilization. We will continue topical nitrates for hypertension control Diuretics and renal insufficiency management per nephrology has diuresed over 3L overnight and renal function improved (2) LIANET (obstructive sleep apnea): Observed by staff patient declined trial of CPAP Would continue oxygen supplementation (3) RUBIN (acute kidney injury): (4) Edema: (5) Alcohol abuse: Subjective Pt seen and examined, oob in chair. His main complaint is that of b/l foot pain which appears to be a chronic issue. States breathing has improved from admission but not yet back to baseline. Denies cp, palpitations, lightheadedness or dizziness. tele reviewed: sinus rhythm with occasional PAC's. Review of Systems All systems reviewed & are unremarkable except as noted in HPI & below Physical Exam 2 Vital Signs (Past 24 Hours): Last Vital Signs Temp 36.5 C 07/30/18 10:52 Pulse 61 07/30/18 10:52 Resp 19 07/30/18 10:52 BP 118/63 07/30/18 10:52 Pulse Ox 95 07/30/18 10:52 Physical Exam: General: Awake, alert and oriented x 3. No acute distress. HEENT: Normocephalic, atraumatic. Pupils equal, round and reactive to light and accommodation. Extraocular muscles are intact. Anicteric sclera. Moist mucous membranes. Neck: No JVD. No bruit. Cardiovascular: Regular. Positive S-4. Normal S-1 and S-2. No S-3. 3/6 holosystolic ejection murmur, 5th intercostal space, mid-clavicular line without radiation. No rubs. Pulmonary: Clear to auscultation bilaterally. No rales, rhonchi, or wheezing. Abdomen: Bowel sounds x 4, soft. No rebound, guarding or tenderness. No organomegaly. Extremities: No clubbing, cyanosis or edema. +2 pedal pulses bilaterally. Skin: Warm and dry.
--- NOTE | 2018-07-30 14:58 | Nephrology Progress Note ---
Date of Service July 30, 2018 Assessment & Plan (1) RUBIN (acute kidney injury): -creatinine from baseline 0.9 on 07/27 > 2.3 at peak now down to 1.35 from 1.8 yesterday; chemistries remain acceptable for now; likely combination of IV contrast and intense diuresis no proteinuria -continue lasix to 30 mg IV q 6 h -Daily BMP and monitor input/output (2) Anasarca: -cont FR 1.8 L and < 2gm daily Na diet -presume from complications of R HF /+ liver failure -ensure daily standing wt Subjective Patient with Volume overload and RUBIN. Diuressing well. Reports improvement in leg edema. c/o cough and SOB. Net negative 3.5litres yesterday Review of Systems All systems reviewed & are unremarkable except as noted in HPI & below Physical Exam 2 Vital Signs (Past 24 Hours): Last Vital Signs Temp 36.5 C 07/30/18 10:52 Pulse 61 07/30/18 10:52 Resp 19 07/30/18 10:52 BP 118/63 07/30/18 10:52 Pulse Ox 95 07/30/18 10:52 Physical Exam: General exam: Appears comfortable, propped up in bed HEENT: Pupils are equal and reactive to light Neck: No JVD, neck is supple trachea is midline Respiratory system: Crackles and wheezing bilaterally. Gastrointestinal: Abdomen is soft, non distended, non tender, bowel sounds are present CVS: Regular rate and rhythm. No murmurs, rubs or gallops Musculoskeletal: No joint or muscle tenderness Extremities: Non tender, 2+ edema, peripheral pulses are present Neuro: Oriented, no tremors, no focal neurological deficits Skin: No rashes Results & Data Laboratory Results cr 1.35, k 4
[2018-07-30] MEDS: TRAMADOL HCL 50 MG TABLET PO PRN (21:05)
[2018-07-31] MEDS: FUROSEMIDE 30 MG in SYRINGE 0 ML IV SCH ×4 (00:07→17:57)
[2018-07-31 05:58] LABS: Hematocrit (blood only) 35.4 % (42-52); Hemoglobin 11.7 g/dL (14.0-18.0); Mean Corpuscular Hgb Conc 33.1 g/dL (32-36); Mean Corpuscular Volume 93.7 fL (80-100); Mean Platelet Volume 11.2 fL (7.4-10.4); Platelet Count 147 K/uL (130-400); RDW Coefficient of Variation 14.5 % (11.5-14.5); RDW Standard Deviation 49.2 fL (36.4-46.3); Red Blood Count 3.78 M/uL (4.7-6.1); White Blood Count 5.56 K/uL (4.8-10.8)
[2018-07-31 06:30] LABS: BUN Creatinine Ratio 19.6 (10-20); Calcium 8.8 mg/dl (8.5-10.1); Creatinine Clr Calc Pharmacy 73.9 ml/min; Est GFR (African American) 74.8; Est GFR (Non-African American) 64.6; Potassium 3.6 mmol/L (3.5-5.1)
[2018-07-31] MEDS: POTASSIUM CHLORIDE 20 MEQ TABCR PO SCH (08:39)
[2018-07-31] MEDS: METOPROLOL SUCC 25MG EXT REL TAB PO SCH ×2 (08:39→20:31)
[2018-07-31] MEDS: MULTIVITAMIN TAB PO SCH (08:39)
[2018-07-31] MEDS: FOLIC ACID 1 MG TAB PO SCH (08:39)
[2018-07-31] MEDS: SIMVASTATIN 40 MG TAB PO SCH (08:39)
[2018-07-31] MEDS: THIAMINE HCL 100 MG TAB PO SCH (08:39)
[2018-07-31] MEDS: ACETAMINOPHEN 325 MG TAB PO PRN (09:35)
--- NOTE | 2018-07-31 10:16 | Hospitalist Progress Note ---
Date of Service July 31, 2018 Assessment & Plan (1) CHF (congestive heart failure): A. fib, unknown duration, rate controlled RUBIN c Hypotension-Renal on case, BP better, Cr now normal UTI sec to Enterococcus faecalis, Nitrofurantoin 100 mg PO Q6 Ordered Transient substernal pain-No PE or DVT Pleural Effusions-IV Lasix, no tap needed, Pulm on case hypertension, currently normotensive Abdominal distention Obese c BMI 36 LE swelling secondary to CHF Chronic Systolic and Diastolic, improving LE claudication symptoms rule out PAD Ongoing alcohol abuse Past tobacco abuse New onset anemia, occult GI bleed No previous GI endoscopies in the past Continue Diuretics, Hold BEBETO-I and Aldactone Strict I/Os, daily weights, CHF education, fluid restriction TTE EF 60-65% Continue home beta-chauncey for A. fib, anticoagulation currently precluded by occult GI bleed DVT prophylaxis. SCDs RE occult GI bleed causing anemia GI to See, if Hb drops, else scope outpatient, Hb rising Pulm on case Renal on case Continue BIPAP Down 11 Kg since admission DNR DC in 1-2 days Ms. Digna Ojeda, contact #[phone]. updated today He would refuse to go to rehab per daughter Subjective ROS-No Headache, No Visual Changes, No Fever, No Chills, No Neck Pain or Stiffness, No Chest Pain, No Palpitations, No SOB, No JUAN, No Cough, No Sputum, No Wheezing, No Abdominal Pain, No Diarrhea, No Hematemesis, No Hemoptysis, No Unexpected Weight Loss, No Flank pain, No Melena, No Hematochezia, No Frequency , No Urgency, No Burning, No Hematuria, No Rashes, No Diaphoresis. Appetite is Normal, Says he feels better today Physical Exam Gen- On BIPAP, NAD, Afebrile, obese Head-NCAT, EOMI, PERRLA, Anicteric Sclera, No Posterior Pharyngeal Erythema Neck-Supple, No JVD, No Thyromegaly, No Masses, No LAD, No Bruits Lungs-Clear to Auscultation Bilaterally, No Rales, No Rhonchi, No Wheezing, No Crepitus Chest-No S4, +S1, +S2, No S3, No Murmurs, No Rubs, No Gallops, + Ectopy Abdomen-Soft, Obese, Bowel Sounds Present, Non Tender, Non Distended, No Hepatomegaly, No Splenomegaly, No Palpable Masses, No Rebound, No Rigidity, No Guarding Musculoskeletal-Full Range of Motion Bilaterally, No CVAT Extremities-No Cyanosis, No Clubbing, + Edema B/L, Still decreasing, Down 11 Kg since admission Nuero-Cranial Nerves II-XII grossly intact, Motor WNL, DTRs WNL, Strength WNL, No Focal Psych-Normal Mood Physical Exam 2 Vital Signs (Past 24 Hours): Last Vital Signs Temp 36.6 C 07/31/18 06:52 Pulse 63 07/31/18 06:52 Resp 19 07/31/18 06:52 BP 149/71 H 07/31/18 06:52 Pulse Ox 92 07/31/18 06:52 Results & Data Laboratory Results Current Diagnoses Alcohol abuse, uncomplicated (07/26/18) Obstructive sleep apnea (adult) (pediatric) (07/26/18) Right heart failure, unspecified (07/26/18) Heart failure, unspecified (07/26/18) Pleural effusion, not elsewhere classified (07/26/18) Acute kidney failure, unspecified (07/26/18) Generalized edema (07/26/18) Edema, unspecified (07/26/18) Allergies acetaminophen [From Vicodin] Allergy (Verified 07/26/18 17:05) Hives hydrocodone [From Vicodin] Allergy (Verified 07/26/18 17:05) Hives Height/Weight/Isolation Height 5 ft 10 in Weight 111.4 kg Chemistry 07/30/18 07/31/18 05:19 05:21 Sodium 139 141 Potassium 4.0 3.6 Chloride 105 104 Carbon Dioxide 30 31 Anion Gap 4.0 6.0 BUN 25 H 22 H Creatinine 1.35 D 1.13 Glucose 87 87 Microbiology 07/28/18 19:30 Urine,Clean Catch Urine Culture - Final Enterococcus faecalis
[2018-07-31] MEDS: NITROFURANTOIN MACROCRYSTAL 50 MG CAP PO SCH ×2 (12:53→17:57)
--- NOTE | 2018-07-31 15:29 | Nephrology Progress Note ---
Date of Service July 31, 2018 Assessment & Plan (1) RUBIN (acute kidney injury): -creatinine from baseline 0.9 on 07/27 > 2.3 at peak now down to 1.1 from 1.35 yesterday; chemistries remain acceptable; no proteinuria -continue lasix to 30 mg IV q 6 h -Daily BMP and monitor input/output (2) Anasarca: His anarsaca is improving but still has a long way to go. -cont FR 1.8 L and < 2gm daily Na diet -presume from complications of R HF /+ liver failure -ensure daily standing wt Subjective Patient with Volume overload and RUBIN. Diuressing well. Reports improvement in leg edema. c/o cough but no SOB. Net negative 5litres yesterday. Wants to go home Review of Systems All systems reviewed & are unremarkable except as noted in HPI & below Physical Exam 2 Vital Signs (Past 24 Hours): Last Vital Signs Temp 36.7 C 07/31/18 15:07 Pulse 63 07/31/18 15:07 Resp 19 07/31/18 15:07 BP 138/70 07/31/18 15:07 Pulse Ox 92 07/31/18 15:07 Physical Exam: General exam: Appears comfortable, no acute distress HEENT: Pupils are equal and reactive to light Neck: No JVD, neck is supple trachea is midline Respiratory system: Crackles bilaterally. Gastrointestinal: Abdomen is soft, non distended, non tender, bowel sounds are present CVS: Regular rate and rhythm. No murmurs, rubs or gallops Musculoskeletal: No joint or muscle tenderness Extremities: Non tender, 2+ edema, peripheral pulses are present Neuro: Oriented, no tremors, no focal neurological deficits Skin: No rashes Results & Data Laboratory Results k 3.6, cr 1.1
[2018-07-31] MEDS: TRAMADOL HCL 50 MG TABLET PO PRN (20:35)
[2018-08-01 05:57] LABS: Hematocrit (blood only) 36.1 % (42-52); Hemoglobin 12.1 g/dL (14.0-18.0); Mean Corpuscular Hgb Conc 33.5 g/dL (32-36); Mean Corpuscular Volume 93.3 fL (80-100); Mean Platelet Volume 10.6 fL (7.4-10.4); Platelet Count 140 K/uL (130-400); RDW Coefficient of Variation 14.2 % (11.5-14.5); RDW Standard Deviation 48.4 fL (36.4-46.3); Red Blood Count 3.87 M/uL (4.7-6.1); White Blood Count 5.44 K/uL (4.8-10.8)
[2018-08-01] MEDS: NITROFURANTOIN MACROCRYSTAL 50 MG CAP PO SCH ×2 (05:57)
[2018-08-01] MEDS: FUROSEMIDE 30 MG in SYRINGE 0 ML IV SCH ×2 (05:58)
[2018-08-01 06:30] LABS: Creatinine Clr Calc Pharmacy 89.1 ml/min; Est GFR (Non-African American) 82.8; Potassium 3.4 mmol/L (3.5-5.1)
[2018-08-01] MEDS ORDERED: POTASSIUM CHLORIDE 20 MEQ TABCR PO STA (08:10)
[2018-08-01] MEDS: MULTIVITAMIN TAB PO SCH (08:21)
[2018-08-01] MEDS: METOPROLOL SUCC 25MG EXT REL TAB PO SCH (08:21)
[2018-08-01] MEDS: SIMVASTATIN 40 MG TAB PO SCH (08:21)
[2018-08-01] MEDS: FOLIC ACID 1 MG TAB PO SCH (08:22)
[2018-08-01] MEDS: THIAMINE HCL 100 MG TAB PO SCH (08:22)
[2018-08-01] MEDS: POTASSIUM CHLORIDE 20 MEQ TABCR PO SCH (08:22)
--- NOTE | 2018-08-01 09:17 | Discharge Summary ---
Date of Service August 01, 2018 Admission HPI Per Admitting Provider History obtained from patient, family, and records. Medical history significant for hypertension, hyperlipidemia, past tobacco abuse , ongoing alcohol abuse, chronic back pain. 3 months ago patient seen at the office for weight gain, abdominal distention, leg swelling, exertional SOB. Patient unaware of snoring symptoms at night. Patient given IM Lasix at the office leading to improvement of symptoms. Unclear if patient unable to follow-up with PCP. The last week patient noted increasing abdominal distention, bilateral leg swelling and leg pain worse on walking, weight gain of about 50 pounds from April 2018. Patient admits to not being watchful with salt intake. Patient having trouble moving around and having worsening shortness of breath on exertion the last week. Noted to be stumbling by family. Episodic lightheadedness. Near syncopal event today. Transient gripping chest sensation today. No unusual cough symptoms. 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 IV Lasix given at the ER for CHF. Admission Exam Per Admitting Provider GENERAL: Anxious, obese, minimal respiratory distress SKIN: Pallor, warm HEENT: Pale palpebral conjunctivae, no ptosis, dry buccal mucosa NECK : Supple, short neck, no tenderness CHEST : Scattered crackles , no tenderness HEART : Irregular, no obvious murmurs ABDOMEN: distention, nontender EXTREMITIES : bri LE swelling, no tenderness, no other conspicuous deformities noted NEUROLOGIC : Coherent, no facial asymmetry, no other gross focality Principal Diagnosis CHF Chronic Systolic and Diastolic Transient substernal pain Pleural Effusion Hypertension LE swelling LE claudication Ongoing alcohol abuse Past tobacco abuse New onset anemia GI Bleed (Hb rising UTI RUBIN AFIB Discharge Exam ROS-No Headache, No Visual Changes, No Fever, No Chills, No Neck Pain or Stiffness, No Chest Pain, No Palpitations, No SOB, No JUAN, No Cough, No Sputum, No Wheezing, No Abdominal Pain, No Diarrhea, No Hematemesis, No Hemoptysis, No Unexpected Weight Loss, No Flank pain, No Melena, No Hematochezia, No Frequency , No Urgency, No Burning, No Hematuria, No Rashes, No Diaphoresis. Appetite is Normal, Says he feels better today Physical Exam Gen- On BIPAP, NAD, Afebrile, obese Head-NCAT, EOMI, PERRLA, Anicteric Sclera, No Posterior Pharyngeal Erythema Neck-Supple, No JVD, No Thyromegaly, No Masses, No LAD, No Bruits Lungs-Clear to Auscultation Bilaterally, No Rales, No Rhonchi, No Wheezing, No Crepitus Chest-No S4, +S1, +S2, No S3, No Murmurs, No Rubs, No Gallops, + Ectopy Abdomen-Soft, Obese, Bowel Sounds Present, Non Tender, Non Distended, No Hepatomegaly, No Splenomegaly, No Palpable Masses, No Rebound, No Rigidity, No Guarding Musculoskeletal-Full Range of Motion Bilaterally, No CVAT Extremities-No Cyanosis, No Clubbing, + Edema B/L, Still decreasing, Down 11 Kg since admission Nuero-Cranial Nerves II-XII grossly intact, Motor WNL, DTRs WNL, Strength WNL, No Focal Psych-Normal Mood Discharge Data Allergies Allergy/AdvReac Type Severity Reaction Status Date / Time acetaminophen [From Vicodin] Allergy Hives Verified 07/26/18 17:05 hydrocodone [From Vicodin] Allergy Hives Verified 07/26/18 17:05 Consultations 07/26/18 19:21 ED Decision to Admit Stat 07/26/18 23:47 Consult Cardiology Routine Consult Case Management - Discharge Planning Routine 07/27/18 11:58 Consult Pulmonology Routine 07/28/18 07:02 Consult Nephrology Routine Ordered Studies 07/26/18 20:48 CT angio chest PE protocol Urgent CT head/brain wo con Urgent 07/27/18 US abdomen limited Routine US ankle/brachial index comp Routine US venous doppler LE BI Routine Current Diagnoses Alcohol abuse, uncomplicated (07/26/18) Obstructive sleep apnea (adult) (pediatric) (07/26/18) Right heart failure, unspecified (07/26/18) Heart failure, unspecified (07/26/18) Pleural effusion, not elsewhere classified (07/26/18) Acute kidney failure, unspecified (07/26/18) Generalized edema (07/26/18) Edema, unspecified (07/26/18) Allergies acetaminophen [From Vicodin] Allergy (Verified 07/26/18 17:05) Hives hydrocodone [From Vicodin] Allergy (Verified 07/26/18 17:05) Hives Height/Weight/Isolation Height 5 ft 10 in Weight 107.4 kg CBC 07/26/18 07/27/18 07/27/18 17:25 03:56 09:47 Hgb 12.9 L 12.2 L 12.2 L 07/29/18 07/30/18 07/31/18 06:37 05:19 05:21 Hgb 12.1 L 11.2 L 11.7 L 08/01/18 05:35 Hgb 12.1 L Chemistry 07/31/18 08/01/18 05:21 05:35 Sodium 141 138 Potassium 3.6 3.4 L Chloride 104 103 Carbon Dioxide 31 30 Anion Gap 6.0 5.0 BUN 22 H 16 Creatinine 1.13 0.92 Glucose 87 87 Microbiology 07/28/18 19:30 Urine,Clean Catch Urine Culture - Final Enterococcus faecalis Hospital Course (1) CHF (congestive heart failure): A. fib, unknown duration, rate controlled RUBIN c Hypotension-Renal on case, BP better, Cr now normal UTI sec to Enterococcus faecalis, Nitrofurantoin 100 mg PO Q6 Ordered Transient substernal pain-No PE or DVT Pleural Effusions-IV Lasix, no tap needed, Pulm on case hypertension, currently normotensive Abdominal distention Obese c BMI 36 LE swelling secondary to CHF Chronic Systolic and Diastolic, improving LE claudication symptoms rule out PAD Ongoing alcohol abuse Past tobacco abuse New onset anemia, occult GI bleed No previous GI endoscopies in the past Continue Diuretics, BEBETO-I and Aldactone on DC Fluid restriction TTE EF 60-65% Continue home beta-chauncey for A. fib, Continue anticoagulation. GI to See outpatient f/u c Pulm, renal DC Today Ms. Digna Ojeda, contact #[phone]. updated today He would refuse to go to rehab per daughter Total Time Total Time Spent Total Time Spent (In Minutes): 45 mins Total Time Includes: Examination of the Patient, Discharge Planning, Medication Reconciliation and Communication With Other Providers Discharge Plan Discharge Items Patient Disposition: Home - Home Health Services Reason For Visit: CHF Discharge Diagnosis: CHF Chronic Systolic and Diastolic Transient substernal pain Pleural Effusion Hypertension LE swelling LE claudication Ongoing alcohol abuse Past tobacco abuse New onset anemia GI Bleed (Hb rising UTI RUBIN AFIB Condition: Fair Discharge Goals: Decrease discomfort, Improve function and Improve nutritional status Activity: Resume your previous activity Lifting: Gradually increase as tolerated Bathing: No limitations Sexual Activity: When tolerated Exercise/Sports: Gradually increase as tolerated Weightbearing: Left weightbearing and Right weightbearing Non-emergency contact: Primary Care Provider, Lithographic Press Feeder, Wood Carving Lathe Operator, Grain Distributor and Porter Head Call non-emergency contact if: you have any medication questions, your symptoms worsen and your pain is worsening Follow-up/Referrals: Lm Zafar MD [Physician] - (Call for first opening) Marcos Moran DO [Physician] - (Call for first opening) Bre Moody MD, PhD [Physician] - (Call for first opening) Ludmila Good [Physician] - (Had Heme Pos stool in hospital, Scope outpatient, Hb rising Call for first opening) Mj Lama MD [Primary Care Provider] - (3-5 days) Diet: Heart Healthy and Low Sodium (2gm) Addtl Provider Instructions: Needs outpatient GI eval for Heme Pos stool, Monitor weights at home, High bounce back risk, Compliance. Prescriptions: New acetaminophen [Mapap (acetaminophen)] 325 mg Tablet 650 mg PO Q4H PRN (Reason: fever or pain) Qty: 100 RF: 0 nitrofurantoin macrocrystal 50 mg Capsule 100 mg PO BID Qty: 20 RF: 0 lisinopril [Zestril] 10 mg Tablet 10 mg PO QAM Qty: 30 RF: 0 metoprolol succinate 25 mg Tablet Extended Release 24 Hr 12.5 mg PO BID Qty: 30 RF: 0 Continue furosemide 40 mg tablet 40 mg PO BID RF: 0 potassium chloride 10 mEq tablet extended release 10 meq PO BID RF: 0 aspirin 81 mg Tablet,Delayed Release (Dr/Ec) 81 mg PO DAILY RF: 0 tramadol 50 mg tablet 50 mg PO Q6H PRN (Reason: Pain) RF: 0 simvastatin 40 mg tablet 40 mg PO DAILY RF: 0 vit C,H-Ym-ncszd-lutein-zeaxan [PreserVision AREDS-2] [id number] mg-unit-mg- mg Capsule 1 tab PO BID RF: 0 Discontinued gabapentin 300 mg capsule 300 mg PO TID RF: 0 atenolol 50 mg tablet 50 mg PO DAILY RF: 0 Stand-Alone Forms: [facility] Discharge Orders: Discharge Order (Routine); Ordered 02/11/19 Ordered By: Anjel Burgess Admission Data Admit Date/Time: 07/26/18 22:17 Attending Provider: Anjel Burgess Admit Provider: Antony Szymanski Primary Care Provider: Mj Lama Other Providers: Antony Szymanski ; Marcos Moran ; Navneet Cooper ; Nate Rebolledo ; Jose Guadalupe Alcantar ; Yohan Arce ; Richard Bonilla ; Natali Borjas ; Tamiko Mesa ; Lm Zafar ; Bre Moody Service: Telemetry
--- NOTE | 2018-08-01 12:52 | Nephrology Progress Note ---
Date of Service August 01, 2018 Assessment & Plan (1) RUBIN (acute kidney injury): -creatinine from baseline 0.9 on 07/27 > 2.3 at peak now back to baseline; He has hypokalemia -cChange to lasix 40mg po bid -Give po kcl 40meq today -Patient will need repeat BMP next week and renal f/u in 2 weeks to adjust diuretics (2) Anasarca: His anarsaca is improving but still has a long way to go. -cont FR 1.8 L and < 2gm daily Na diet even at home. Patient agrees to follow restriction. -presume from complications of R HF /+ liver failure -ensure daily standing wt Subjective He feels much better. SOB has resolved. Edema improving. Wants to go home. Review of Systems All systems reviewed & are unremarkable except as noted in HPI & below Physical Exam 2 Vital Signs (Past 24 Hours): Last Vital Signs Temp 36.8 C 08/01/18 10:33 Pulse 61 08/01/18 10:33 Resp 18 08/01/18 10:33 BP 155/63 H 08/01/18 10:33 Pulse Ox 92 08/01/18 10:33 Physical Exam: General exam: Appears comfortable, no acute distress HEENT: Pupils are equal and reactive to light Neck: No JVD, neck is supple trachea is midline Respiratory system: Clear breath sounds bilaterally. Gastrointestinal: Abdomen is soft, non distended, non tender, bowel sounds are present CVS: Regular rate and rhythm. No murmurs, rubs or gallops Musculoskeletal: No joint or muscle tenderness Extremities: Non tender, 2+ edema, peripheral pulses are present Neuro: Oriented, no tremors, no focal neurological deficits Skin: No rashes Results & Data Laboratory Results cr 0.9, k 3.4
== END 2018-08-01 12:06 | disposition home health service (06) | DRG 291 ==
LOC: ED 16:43 → SUATTDRO 22:17 → 2S 22:17

== ENCOUNTER 2021-12-09 19:08 | Inpatient (IN) ==
--- NOTE | 2021-12-09 22:02 | Surgery Consultation ---
Date of Consultation December 09, 2021 Assessment & Plan (1) Gangrene of right foot: Patient seen, evaluated, and treated. Wound Cultures taken at ED awaiting results. Cont' IV abx therapy. Reviewed x-rays and x-ray findings taken at ED. No signs of Gas on x-ray. Gangrenous changes on right foot are immediately evident with limited soft tissue viability and presence of maggots. Patient scheduled for Surgery, 12/10/21 for removal of non viable bone and soft tissue probable transmetatarsal amputation. OR gives tentative time of 5pm. Thank you for allowing me to participate in the care of this Patient. I reviewed procedure in detail as well as postoperative recovery. I discussed expectations and patient's current weightbearing status. All questions answered. I have discussed procedure in detail as well as postoperative recovery. All potential risks, benefits, complications, alternatives, rehab, potential for incomplete relief of symptoms, need for further surgery, DVT, PE, , persistent pain, swelling, scarring, weakness, neurovascular, wound complications and potential for amputations were discussed with patient. Unwanted outcomes such as, but not limited to were reviewed including under correction, overcorrection, return of deformity, infection. All questions were answered. Patient has decided to proceed with procedure as indicated. (2) Osteomyelitis of right foot: History of Present Illness Attending Physician: Antony Szymanski MD History of Present Illness Marcos cuenca is a 76-year-old male seen at bedside. Patient has a known history of congestive heart failure, severe tophaceous gout and presents for right foot wound. Patient was seen by primary care earlier in the day who identified maggot in right foot wound and directed Patient to [facility]. While in ED pedal pulses were note immediately palpable or identified on audible Doppler. Patient is with daughter who helps with history and care. She notes wound present for multiple weeks but only recently right foot turned black. Upon ED evaluation Patient noted to have gangrenous changes at the base of his right great toe, obvious cellulitis, with exotropic tophaceous gout involving the first MTP joint and is going over the dorsum of his right foot. Patient was noted to have maggots in the space between his first and second toes. Patient was transferred to [facility] for surgical amputation and followed by vascular consult. Allergies Allergy/AdvReac Type Severity Reaction Status Date / Time acetaminophen [From Vicodin] Allergy Hives Verified 07/26/18 17:05 hydrocodone [From Vicodin] Allergy Hives Verified 07/26/18 17:05 Home Medications Medication Instructions Recorded Confirmed Type aspirin 81 mg tablet,delayed 81 mg PO DAILY 07/26/18 07/26/18 History release furosemide 40 mg tablet 40 mg PO BID 07/26/18 07/26/18 History potassium chloride 10 mEq 10 meq PO BID 07/26/18 07/26/18 History tablet,extended release simvastatin 40 mg tablet 40 mg PO DAILY 07/26/18 07/26/18 History tramadol 50 mg tablet 50 mg PO Q6H PRN 07/26/18 07/26/18 History vit C 250 mg-vit E 90 mg-zinc 40 1 tab PO BID 07/26/18 07/26/18 History mg-copper 1 al-btsysy-cdimbd capsule (PreserVision AREDS-2) acetaminophen 325 mg tablet (Mapap 650 mg PO Q4H PRN #100 tab 08/01/18 Rx (acetaminophen)) lisinopril 10 mg tablet (Zestril) 10 mg PO QAM #30 tab 08/01/18 Rx metoprolol succinate 25 mg 12.5 mg PO BID #30 tab 08/01/18 Rx tablet,extended release 24 hr nitrofurantoin macrocrystal 50 mg 100 mg PO BID #20 cap 08/01/18 Rx capsule Patient History Medical History Alcohol abuse CHF (congestive heart failure) Hypertension No significant family history Surgical History No significant past surgical history Family History Other Breast cancer Lung cancer Pancreatic cancer Social History Smoking Status: Former smoker Second Hand Exposure: No; Hx Alcohol Use: Yes Alcohol type: beer Hx Substance Use: No Preferred Language: Hebrew Communication Ability: Effective Er Nurse Required: No Beliefs That Will Affect Care: None marital status: Current Living Situation: Family Feels Safe at Home: Yes Safety Concerns: Feels Safe At This Time Assistive Devices: Cane, Denture - Upper and Glasses Review of Systems Review of Systems: Constitutional: No fever, No chills. Respiratory: No shortness of breath, No cough. Cardiovascular: No chest pain. Gastrointestinal: Negative. Genitourinary: Negative. Hematology/Lymphatics: No bruising tendency, No bleeding tendency. Musculoskeletal: Planes of severe pain in the right great toe and right forefoot. Integumentary: No rash. Neurologic: Negative. All Other ROS have been reviewed and are negative Physical Exam Physical Exam: Alert and oriented, Moderate distress, Disheveled male who appears much older than his stated age. Constitutional: WD/WN, vitals as above ENMT: Normocephalic. Neck: Supple Respiratory: Lungs are clear to auscultation, Respirations are non-labored, Breath sounds are equal. Cardiovascular: RRR, no murmur, no edema Gastrointestinal (Abdomen): Soft, Non-tender, Non-distended. Musculoskeletal: Patient has obvious gangrenous changes at the base of his right great toe with purple cyanotic great toe itself with no capillary refill. He has a ring of erythema extending over the MCP joint with tophaceous irruption over the lateral aspect of the first MTP joint and with redness extending over the proximal dorsal and plantar medial aspect of the right foot. Skin: Focused Exam: Wound location: Full thickness Right foot MPTJ Wound base color and depth: Probes easily to bone first Metatarsal Wound size (cm): 3 x 4 x 6cm Odor: malodorous Drainage: tophaceous exudate Undermining: Positive Borders: macerated cyanotic, gangrenous Neurologic: epicritic sensation intact Psychiatric: A+Ox3, euthymic affect Results & Data ([facility]) Vital Signs (Past 12 Hours) Vital Signs Temp Pulse Resp BP Pulse Ox 12/09/21 20:49 36.8 C 73 18 136/71 97 Diagnostic Findings Narrative & Impression INDICATION: 1st toe / metatarsal toe is black. TECHNIQUE: Three view(s) of the right foot. COMPARISON: None Available. FINDINGS: There is no displaced fracture. There is a 5 mm erosion in the medial aspect of the base of the proximal phalanx of the great toe.. There is diffuse soft tissue swelling at the level of the first tarsometatarsal junction. No periosteal reactions are identified.. Vascular calcifications are seen throughout the foot.. IMPRESSION There is soft tissue swelling in the great toe and a small erosion of the base of the proximal phalanx approximately 5 mm in diameter. There is no periosteal reaction but osteomyelitis cannot be excluded.. Electronically Signed by Antony Higgins MD 12/09/2021 6:48 PM
[2021-12-09] MEDS ORDERED: KETOROLAC TROMETHAMINE 15 MG/ML VIAL IV ONE (22:30)
[2021-12-09] MEDS ORDERED: ACETAMINOPHEN 325 MG TAB PO PRN (23:26)
[2021-12-09] MEDS ORDERED: PROMETHAZINE HCL 12.5 MG in SODIUM CHLORIDE 0.9% 50 ML IV PRN (23:27)
[2021-12-09 23:59] LABS: Basophils # (auto) 0.01 K/uL (0-0.2); Basophils % (auto) 0.1 %; Eosinophils % (auto) 0.9 %; Hematocrit (blood only) 34.8 % (42-52); Hemoglobin 11.5 g/dL (14.0-18.0); Immature Granulocytes # (auto) 0.04 K/uL (0.00-0.02); Immature Granulocytes % (auto) 0.4 %; Lymphocytes # (auto) 1.35 K/uL (1.2-3.4); Lymphocytes % (auto) 12.4 %; Mean Corpuscular Hemoglobin 31.1 pg (25-34); Mean Corpuscular Volume 94.1 fL (80-100); Mean Platelet Volume 9.5 fL (7.4-10.4); Monocytes # (auto) 0.53 K/uL (0.11-0.59); Monocytes % (auto) 4.9 %; Neutrophils # (auto) 8.82 K/uL (1.4-6.5); Neutrophils % (auto) 81.3 %; Platelet Count 260 K/uL (130-400); RDW Coefficient of Variation 14.6 % (11.5-14.5); RDW Standard Deviation 50.5 fL (36.4-46.3); White Blood Count 10.85 K/uL (4.8-10.8)
[2021-12-10 00:18] LABS: BUN Creatinine Ratio 8.1 (10-20); Calcium 8.5 mg/dl (8.5-10.1); Creatinine Clr Calc Pharmacy 78.2 ml/min; Est GFR (Non-African American) 74.2 ml/min; Magnesium 1.8 mg/dl (1.7-2.4); Potassium 3.4 mmol/L (3.5-5.1)
[2021-12-10] MEDS: oxyCODONE HCL IR 5 MG TAB (IMMEDIATE RELEASE) PO PRN ×2 (00:19→11:00)
[2021-12-10] MEDS ORDERED: SODIUM CHLORIDE 0.9% 1000ML 1,000 ML IV ONE (00:30)
[2021-12-10] MEDS ORDERED: POTASSIUM CHLORIDE CRTAB 20 MEQ TABCR PO STA (00:31)
[2021-12-10] MEDS ORDERED: MAGNESIUM SULFATE / D5W 1 GM/100 ML BAG IV ONE (00:32)
[2021-12-10] MEDS ORDERED: VANCOMYCIN CONSULT ACTIVE PRN (00:33)
[2021-12-10] MEDS ORDERED: VANCOMYCIN CONSULT ACTIVE STA (00:33)
[2021-12-10] MEDS ORDERED: PIPERACILLIN/TAZOBACTAM 4.5 GM in DEXTROSE 5% 100 ML IV SCH (00:45)
[2021-12-10] MEDS ORDERED: VANCOMYCIN HCL 2,250 MG in SODIUM CHLORIDE 0.9% 500 ML IV ONE (01:00)
[2021-12-10] MEDS ORDERED: PIPERACILLIN/TAZOBACTAM 4.5 GM in DEXTROSE 5% 100 ML IV ONE (01:00)
[2021-12-10] MEDS ORDERED: NITROGLYCERIN SL 0.4 MG/TAB TAB SL STA (01:40)
--- NOTE | 2021-12-10 01:46 | Communication Note ---
Date of Service: December 10, 2021 Made aware by RN of chest pain relieved by nitroglycerin. EKG as per my interpretation: Rate 65, NSR, LAD, LAFB, T wave flattening inferior and lateral leads Troponin negative AP Chest pain relieved by nitroglycerin TTE, Cardiology consult in a.m.
[2021-12-10 02:42] LABS: Partial Thromboplastin Ratio 1.2; Partial Thromboplastin Time 33.9 Seconds (21.0-31.0)
[2021-12-10] MEDS: PIPERACILLIN/TAZOBACTAM 3.375 GM in DEXTROSE 5% 100 ML IV SCH ×3 (05:31→21:32)
[2021-12-10 06:33] LABS: Calcium 7.6 mg/dl (8.5-10.1); Est GFR (African American) 96.9 ml/min; Est GFR (Non-African American) 83.6 ml/min; Potassium 3.4 mmol/L (3.5-5.1)
[2021-12-10] MEDS ORDERED: LORazepam 1 MG in SYRINGE 0.5 ML IV PRN (07:16)
[2021-12-10] MEDS ORDERED: LORazepam 3 MG in SYRINGE 1.5 ML IV PRN (07:16)
[2021-12-10] MEDS ORDERED: LORazepam 2 MG in SYRINGE 1 ML IV PRN (07:16)
[2021-12-10] MEDS ORDERED: ATIVAN IV ALCOHOL WITHDRAWL IV PRN (07:16)
[2021-12-10] MEDS ORDERED: THIAMINE HCL 100 MG in SYRINGE 9 ML IV STA (07:16)
--- NOTE | 2021-12-10 07:22 | History & Physical Report ---
Date of Service December 09, 2021 Assessment & Plan (1) Gangrene of right foot: Plan: No overt sepsis for now hx chronic diastolic CHF (EF 60 to 65%, TTE 2019), patient on the dry side PAF, patient NSR hypertension, stable pulmonary hypertension on TTE Hypokalemia secondary to diuretic Rx Ongoing alcohol abuse Chronic anemia, hemoglobin at baseline past tobacco abuse GMF CS, Vancomycin, Zosyn [facility] ID consult once CS results back Podiatry consult Re: Gangrenous right foot (Patient already seen by Dr. Chan who recommends surgery tomorrow.) CARLOS S, DT precautions Replace potassium DVT prophylaxis. Lovenox subcu DNR Patient requests for his daughter to be updated of plan of care. Ms. Digna Ojeda, contact #[phone]. Text document was generated using [employer] voice recognition software. It may contain grammatical or spelling errors. Kindly contact undersigned for clarification of any documentation item in question. Admission and Anticipated Discharge Date Admission Date: December 09, 2021 History of Present Illness Chief Complaint: Right foot infection Primary Care Provider: Dr. Cristobal History obtained from patient and records. Patient is a fair historian. Medical history significant for Last confinement July 2018 for right-sided heart failure. Patient has had right foot swelling for about a few weeks. Prescribed unrecalled antibiotic by PCP with good response as per patient. 2 days ago, purulent drainage noted from right foot swelling wound. Worsening pain without fever or chills. Maggots noted by family on right foot which is turned black yesterday. Patient denies chest pain, SOB. Patient brought to [facility] ER. Patient transferred to [facility] for specialist evaluation. 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 Allergies Allergy/AdvReac Type Severity Reaction Status Date / Time acetaminophen [From Vicodin] Allergy Hives Verified 07/26/18 17:05 hydrocodone [From Vicodin] Allergy Hives Verified 07/26/18 17:05 Home Medications Medication Instructions Recorded Confirmed Type aspirin 81 mg tablet,delayed 81 mg PO DAILY 07/26/18 12/10/21 History release furosemide 40 mg tablet 40 mg PO HS 07/26/18 12/10/21 History potassium chloride 10 mEq 10 meq PO BID 07/26/18 12/10/21 History tablet,extended release tramadol 50 mg tablet 50 mg PO Q6H PRN 07/26/18 12/10/21 History acetaminophen 325 mg tablet (Mapap 650 mg PO Q4H PRN #100 tab 08/01/18 12/10/21 Rx (acetaminophen)) metoprolol succinate 25 mg 12.5 mg PO BID #30 tab 08/01/18 12/10/21 Rx tablet,extended release 24 hr allopurinol 300 mg tablet 300 mg DAILY 12/10/21 12/10/21 History furosemide 80 mg tablet 80 mg PO QAM 12/10/21 12/10/21 History Past Med/Surg History Medical History Alcohol abuse CHF (congestive heart failure) Hypertension No significant family history Surgical History No significant past surgical history Family History Other Breast cancer Lung cancer Pancreatic cancer Social History Smoking Status: Former smoker Second Hand Exposure: No; Hx Alcohol Use: Yes Alcohol type: beer Hx Substance Use: No Preferred Language: Mongolian Communication Ability: Effective Relocation Coordinator Required: No Beliefs That Will Affect Care: None marital status: / Current Living Situation: Family Feels Safe at Home: Yes Safety Concerns: Feels Safe At This Time Assistive Devices: Cane Review of Systems Review of Systems: As per HPI, all other systems reviewed and negative Physical Exam Physical Exam: GENERAL: Uncomfortable, obese, slightly hard of hearing, no respiratory distress SKIN: Pallor, warm HEENT: Pale palpebral conjunctivae, no ptosis, dry buccal mucosa NECK : Supple, short neck, no tenderness CHEST : Decreased breath sounds, no tenderness HEART : RRR, no obvious murmurs ABDOMEN: distention, nontender EXTREMITIES : Dressing over right foot, minimal LE swelling NEUROLOGIC : Coherent, no facial asymmetry, hard of hearing, gait and stance not assessed Results & Data Results & Data ([facility]) Vital Signs (Past 12 Hours) Vital Signs Temp Pulse Pulse Resp BP Pulse Ox 12/09/21 20:50 73 12/09/21 20:49 36.8 C 73 18 136/71 97 Laboratory Results Laboratory Results WBC 10.85 K/uL (4.8-10.8) H 12/09/21 23:47 RBC 3.70 M/uL (4.7-6.1) L 12/09/21 23:47 Hgb 11.5 g/dL (14.0-18.0) L 12/09/21 23:47 Hct 34.8 % (42-52) L 12/09/21 23:47 MCV 94.1 fL (80-100) 12/09/21 23:47 MCH 31.1 pg (25-34) 12/09/21 23:47 MCHC 33.0 g/dL (32-36) 12/09/21 23:47 RDW Std Deviation 50.5 fL (36.4-46.3) H 12/09/21 23:47 RDW Coeff of Brooks 14.6 % (11.5-14.5) H 12/09/21 23:47 Plt Count 260 K/uL (130-400) 12/09/21 23:47 MPV 9.5 fL (7.4-10.4) 12/09/21 23:47 Immature Gran % (Auto) 0.4 % 12/09/21 23:47 Neut % (Auto) 81.3 % 12/09/21 23:47 Lymph % (Auto) 12.4 % 12/09/21 23:47 Reeves % (Auto) 4.9 % 12/09/21 23:47 Eos % (Auto) 0.9 % 12/09/21 23:47 Baso % (Auto) 0.1 % 12/09/21 23:47 Neut # (Auto) 8.82 K/uL (1.4-6.5) H 12/09/21 23:47 Lymph # (Auto) 1.35 K/uL (1.2-3.4) 12/09/21 23:47 Reeves # (Auto) 0.53 K/uL (0.11-0.59) 12/09/21 23:47 Eos # (Auto) 0.10 K/uL (0-0.5) 12/09/21 23:47 Baso # (Auto) 0.01 K/uL (0-0.2) 12/09/21 23:47 Immature Gran # (Auto) 0.04 K/uL (0.00-0.02) H 12/09/21 23:47 APTT 33.9 Seconds (21.0-31.0) H 12/10/21 02:12 PTT Ratio 1.2 12/10/21 02:12 Sodium 135 mmol/L (136-145) L 12/10/21 05:51 Potassium 3.4 mmol/L (3.5-5.1) L 12/10/21 05:51 Chloride 104 mmol/L (98-107) 12/10/21 05:51 Carbon Dioxide 25 mmol/L (21-32) 12/10/21 05:51 Anion Gap 6 (3-11) 12/10/21 05:51 BUN 8 mg/dl (6-23) 12/10/21 05:51 Creatinine 0.89 mg/dl (0.6-1.4) 12/10/21 05:51 Est Cr Clr Drug Dosing 87.0 ml/min 12/10/21 05:51 Est GFR ( Amer) 96.9 ml/min 12/10/21 05:51 Est GFR (Non-Af Amer) 83.6 ml/min 12/10/21 05:51 BUN/Creatinine Ratio 9.0 (10-20) L 12/10/21 05:51 Glucose 100 mg/dl (70-99(Fasting)) H 12/10/21 05:51 Lactate 1.0 mmol/L (0.4-2.0) 12/10/21 05:51 Calcium 7.6 mg/dl (8.5-10.1) L 12/10/21 05:51 Magnesium 1.8 mg/dl (1.7-2.4) 12/09/21 23:47 Troponin I High Sens 4.9 pg/ml (0-20) 12/10/21 05:51 Blood Type A Positive 12/09/21 23:47 Antibody Screen NEGATIVE 12/09/21 23:47 Diagnostic Findings RLE arterial Dopplers initial read: No evidence of flow-limiting stenosiswithin the right lower extremity. Atherosclerotic plaque noted throughout the right lower extremity
[2021-12-10] MEDS: ENOXAPARIN INJ 40 MG/0.4 ML SYR SQ SCH (07:27)
--- NOTE | 2021-12-10 08:10 | XRay Report ---
XR chest 1V portable CLINICAL HISTORY: cp TECHNIQUE: Single frontal radiograph of the chest was obtained. Comparison: Comparison is made to chest radiograph 07/28/2018 FINDINGS: No lines and tubes are seen. The cardiomediastinal silhouette is normal. Lungs are underinflated but clear. No evidence of pleural effusion or pneumothorax. IMPRESSION: No acute chest disease. ACT 112: Negative or not required by law. Electronically signed by: Buddy Saab M.D. 12/10/2021 8:09 AM
[2021-12-10] MEDS ORDERED: METOPROLOL SUCC 25MG EXT REL TAB PO SCH (09:00)
[2021-12-10] MEDS ORDERED: VANCOMYCIN HCL 1,000 MG in SODIUM CHLORIDE 0.9% 250 ML IV SCH (09:00)
[2021-12-10] MEDS ORDERED: ASPIRIN 81 MG ECTAB PO SCH (09:00)
[2021-12-10] MEDS ORDERED: allopurinoL 300 MG TAB PO SCH (09:00)
--- NOTE | 2021-12-10 09:00 | Ultrasound Report ---
US arterial duplex LE RT CLINICAL HISTORY: RLE pain TECHNIQUE: Real-time grayscale and color and spectral Doppler ultrasound imaging of the bilateral low er extremity arteries was performed. Measurements calculated based on NASCET criteria. COMPARISON: None available at the time of this dictation. FINDINGS: RIGHT: Common femoral artery: Triphasic waveforms. Peak systolic velocity (PSV) 131 cm/s. Deep femoral artery: Triphasic waveforms. PSV 88 cm/s. Superficial femoral artery: Triphasic waveforms. PSV 127 cm/s. Popliteal artery: Triphasic waveforms. PSV 92 cm/s. Anterior tibial artery: Triphasic waveforms. PSV 102 cm/s. Posterior tibial artery: Triphasic waveforms. PSV 103 cm/s. Peroneal artery: Triphasic waveforms. PSV 57 cm/s. Dorsalis pedis: Triphasic waveforms. PSV 40 cm/s. Reference ranges: Normal Ankle/Brachial Index (SONU) 1.0-1.4; 0.91-0.99 borderline; < or = 0.9 abnormal (0.7-0.89 mild, 0.51-0.69 moderate, < or = 0.5 severe peripheral arterial disease). Normal Toe/Brachial Index (TBI) > or = 0.6; < 0.6 abnormal (0.34-0.59 mild, 0.12-0.34 moderate, < or = 0.11 severe peripheral arterial disease). IMPRESSION: No hemodynamically significant stenosis. ACT 112: Negative or not required by law. Electronically signed by: Buddy Saab M.D. 12/10/2021 8:59 AM
[2021-12-10] MEDS: MULTIVITAMIN TAB PO SCH (09:02)
[2021-12-10] MEDS: FOLIC ACID 1 MG TAB PO SCH (09:02)
--- NOTE | 2021-12-10 09:02 | Pharmacy Report ---
Pharmacy PK ABX Note - Date of Service December 10, 2021 - Assessment and Plan Assessment 76 year old M receiving empiric vancomycin and Zosyn for treatment of gangrenous right foot (SSTI w/ possible osteomyelitis). Patient scheduled for right foot transmetatarsal amputation today. Renal function stable. Day # 1 of antimicrobial therapy. Plan Vancomycin * Loading dose: 2250 mg IV (22 mg/kg) * Maintenance dose: 1000 mg IV every 12 hours * Regimen is predicted to achieve target AUC/AMANUEL of 400-600 mg/L.hr * Will obtain random level on 12/12/21 Zosyn * 3.375 g IV q8h - appropriate Pharmacy will continue to follow and will adjust dose/frequency as necessary. Thank you. Pharmacy has transitioned to AUC monitoring for vancomycin. AUC/AMANUEL is the preferred PK/PD target and is associated with decreased risk of nephrotoxicity compared to traditional trough targets.
--- NOTE | 2021-12-10 09:42 | Cardiology Consultation ---
Date of Consultation December 10, 2021 Assessment & Plan (1) Chest pain: (2) Pericardial effusion: (3) Acute pericarditis: (4) Preop cardiovascular exam: (5) Osteomyelitis of right foot: (6) Gangrene of right foot: (7) Right heart failure: (8) LIANET (obstructive sleep apnea): (9) Alcohol abuse: (10) Pulmonary hypertension: Chest discomfort at rest particularly worsening with lying down. Pericardial effusion is present on 2D echocardiogram along with normal wall motion. Symptoms consistent with acute pericarditis. Recommend colchicine 0.6 mg p.o. twice daily x3 months along with ibuprofen 600 mg 3 times daily x1 month. Recommend PPI use as well. Patient states that the most relief he received was from the GI cocktail in the ER, may consider GI evaluation as well. In terms of preop risk assessment the patient is counseled that I would place him as a moderate risk for any adverse perioperative cardiovascular event with his risk being approximately less than 5%. He was further counseled that no further cardiac testing intervention would further lower that risk. He states he understands, he is accepting of that risk and wishes to proceed. I see no need to delay from a cardiac standpoint. History of Present Illness Reason for Consultation: Chest pain Requesting Physician: Dr. Charles Attending Physician: Jose Armando Pina MD History of Present Illness Mr. Hobbs is a 76-year-old male who presented to [facility] from [facility] for right foot gangrene. Patient states he has been having swelling of his foot for several weeks now and has noted that maggots have been coming out of an open wound. He is scheduled for surgery today for partial amputation. Last night he complained of chest discomfort after admission. He states he has been having this chest discomfort for several weeks now. He states that it is constant, not alleviated by positioning. Not aggravated with exertion. Denies any associated symptoms. He received a GI cocktail with significant relief of his discomfort. He was previously seen by our cardiology practice in 2019 when he was admitted for right-sided heart failure. He states he has not followed up with a commercial collector since that time. Allergies Allergy/AdvReac Type Severity Reaction Status Date / Time acetaminophen [From Vicodin] Allergy Hives Verified 07/26/18 17:05 hydrocodone [From Vicodin] Allergy Hives Verified 07/26/18 17:05 Home Medications Medication Instructions Recorded Confirmed Type aspirin 81 mg tablet,delayed 81 mg PO DAILY 07/26/18 12/10/21 History release furosemide 40 mg tablet 40 mg PO HS 07/26/18 12/10/21 History potassium chloride 10 mEq 10 meq PO BID 07/26/18 12/10/21 History tablet,extended release tramadol 50 mg tablet 50 mg PO Q6H PRN 07/26/18 12/10/21 History acetaminophen 325 mg tablet (Mapap 650 mg PO Q4H PRN #100 tab 08/01/18 12/10/21 Rx (acetaminophen)) metoprolol succinate 25 mg 12.5 mg PO BID #30 tab 08/01/18 12/10/21 Rx tablet,extended release 24 hr allopurinol 300 mg tablet 300 mg DAILY 12/10/21 12/10/21 History furosemide 80 mg tablet 80 mg PO QAM 12/10/21 12/10/21 History Patient History Medical History Alcohol abuse CHF (congestive heart failure) Hypertension No significant family history Surgical History No significant past surgical history Family History Other Breast cancer Lung cancer Pancreatic cancer Social History Smoking Status: Former smoker Second Hand Exposure: No; Hx Alcohol Use: Yes Alcohol type: beer Hx Substance Use: No Preferred Language: Cymro Communication Ability: Effective Chief Executive Required: No Beliefs That Will Affect Care: None marital status: Current Living Situation: Family Feels Safe at Home: Yes Safety Concerns: Feels Safe At This Time Assistive Devices: Cane, Denture - Upper and Glasses Review of Systems Review of Systems: All systems reviewed & are unremarkable except as noted in HPI & below Physical Exam Physical Exam: General: Awake, alert and oriented x 3. No acute distress. HEENT: Normocephalic, atraumatic. Pupils equal, round and reactive to light and accommodation. Extraocular muscles are intact. Anicteric sclera. Moist mucous membranes. Neck: No JVD. No bruit. Cardiovascular: Regular. Positive S-4. Normal S-1 and S-2. No S-3. 3/6 holosystolic ejection murmur, 5th intercostal space, mid-clavicular line without radiation. No rubs. Pulmonary: Clear to auscultation bilaterally. No rales, rhonchi, or wheezing. Abdomen: Bowel sounds x 4, soft. No rebound, guarding or tenderness. No organomegaly. Extremities: No clubbing, cyanosis or edema. +2 pedal pulses bilaterally. Skin: Warm and dry. Results & Data ([facility]) Vital Signs (Past 12 Hours) Vital Signs Temp Pulse Pulse Resp BP Pulse Ox 12/10/21 08:00 67 12/10/21 06:40 36.8 C 68 16 106/64 95 12/10/21 02:00 72 16 131/68 96 12/10/21 01:38 69 20 136/76 94 12/09/21 23:32 36.7 C 71 18 136/72 97 12/09/21 22:25 67
[2021-12-10] MEDS ORDERED: oxyCODONE HCL IR 5 MG TAB (IMMEDIATE RELEASE) PO STA (10:54)
[2021-12-10 11:39] LABS: Albumin Level 2.4 gm/dl (3.4-5.0); Bilirubin Direct 0.2 mg/dl (0-0.2); Bilirubin,Total 0.6 mg/dl (0.2-1.0); Total Protein 4.8 gm/dl (6.0-8.3)
--- NOTE | 2021-12-10 12:05 | Electrocardiogram Report ---
Test Reason : Blood Pressure : / mmHG Vent. Rate : 067 BPM Atrial Rate : 067 BPM P-R Int : 146 ms QRS Dur : 090 ms QT Int : 440 ms P-R-T Axes : 023 -03 009 degrees QTc Int : 464 ms Normal sinus rhythm Nonspecific ST and T wave abnormality Abnormal ECG When compared with ECG of 27-JUL-2018 06:12, Nonspecific T wave abnormality, worse in Anterior leads Nonspecific T wave abnormality has replaced inverted T waves in Lateral leads Confirmed by Lm Brady ([id number]) on 12/10/2021 12:04:24 PM Referred By: Antony Szymanski Confirmed By:Lm Brady
--- NOTE | 2021-12-10 12:05 | Electrocardiogram Report ---
Test Reason : Blood Pressure : / mmHG Vent. Rate : 069 BPM Atrial Rate : 069 BPM P-R Int : 154 ms QRS Dur : 086 ms QT Int : 434 ms P-R-T Axes : 024 000 -04 degrees QTc Int : 465 ms Normal sinus rhythm Low voltage QRS Nonspecific ST abnormality Abnormal ECG When compared with ECG of 10-DEC-2021 01:18, (unconfirmed) No significant change was found Confirmed by Lm Brady ([id number]) on 12/10/2021 12:04:32 PM Referred By: Antony Szymanski Confirmed By:Lm Brady
[2021-12-10] MEDS: DAPTOmycin 350 MG in SYRINGE 0 ML IV SCH (13:55)
[2021-12-10] MEDS: COLCHICINE 0.6 MG TAB PO SCH ×2 (13:56→21:36)
[2021-12-10] MEDS: IBUPROFEN 600 MG TAB PO SCH ×2 (13:56→21:35)
--- NOTE | 2021-12-10 14:00 | XRay Report ---
XR ribs BI min 2V HISTORY: 76 years-old Male rib pain r/o fracture acute bilateral chest and rib pain COMPARISON: Chest radiograph of same day TECHNIQUE: AP view of the chest with 3 views of the bilateral ribs FINDINGS: Cardiac silhouette is enlarged. Mild right hemidiaphragmatic elevation. No pneumothorax, pleural effu julieta, airspace consolidation or overt pulmonary edema. Arterial calcifications. Degenerative changes of the shoulders and spine. Cholecystectomy. No acute displaced rib fracture identified. IMPRESSION: 1. No acute processes of the chest. 2. No acute rib fracture identified. ACT 112: Negative or not required by law. The above report was generated using voice recognition software. It may contain grammatical, syntax o r spelling errors. Electronically signed by: Richardson Melendez M.D. 12/10/2021 1:58 PM
--- NOTE | 2021-12-10 16:12 | Anesthesiology Consultation ---
Date of Service December 10, 2021 Assessment & Plan (1) Encounter for pre-operative examination: Chart Review Chart Review: Acceptable Risk for Surgery (necessary surgery) and Patient NOT seen in Pre Admission Testing Consults Requested none cardiology and medicine are following, patient has acute pericarditis but is okay to proceed with surgery History Surgery Operation Date: 12/10/21 09:50 Proposed Procedures p Right Foot Transmetatarsal Amputation - Nader Milner, ROSA MARIA, [place] Height/Weight Height: 5 ft 11 in Weight: 101.4 kg Allergies Allergy/AdvReac Type Severity Reaction Status Date / Time acetaminophen [From Vicodin] Allergy Hives Verified 07/26/18 17:05 hydrocodone [From Vicodin] Allergy Hives Verified 07/26/18 17:05 Medications Home Medications Medication Instructions Recorded Confirmed Last Taken aspirin 81 mg tablet,delayed 81 mg PO DAILY 07/26/18 12/10/21 Unknown release furosemide 40 mg tablet 40 mg PO HS 07/26/18 12/10/21 12/09/21 40 mg potassium chloride 10 mEq 10 meq PO BID 07/26/18 12/10/21 12/09/21 tablet,extended release 10 meq tramadol 50 mg tablet 50 mg PO Q6H PRN 07/26/18 12/10/21 Unknown acetaminophen 325 mg tablet (Mapap 650 mg PO Q4H PRN #100 tab 08/01/18 12/10/21 12/09/21 (acetaminophen)) 650 mg metoprolol succinate 25 mg 12.5 mg PO BID #30 tab 08/01/18 12/10/21 12/09/21 tablet,extended release 24 hr 12.5 mg allopurinol 300 mg tablet 300 mg DAILY 12/10/21 12/10/21 12/09/21 300 mg furosemide 80 mg tablet 80 mg PO QAM 12/10/21 12/10/21 12/09/21 80 Active Medications Generic Name Dose Route Start Last Admin Trade Name Freq PRN Reason Stop Dose Admin Acetaminophen 650 mg 12/09/21 23:26 12/10/21 03:48 Acetaminophen 325 Mg Tab PO 01/08/22 23:25 650 mg Q6H PRN Administration Fever/pain Allopurinol 300 mg 12/10/21 09:00 12/10/21 09:02 Allopurinol 300 Mg Tab PO 01/09/22 08:59 300 mg DAILY DIANA Administration Aspirin 81 mg 12/10/21 09:00 12/10/21 07:28 Aspirin 81 Mg Ectab PO 01/09/22 08:59 Not Given DAILY DIANA Colchicine 0.6 mg 12/10/21 13:05 12/10/21 13:56 Colchicine 0.6 Mg Tab PO 01/09/22 13:04 0.6 mg BID DIANA Administration Enoxaparin Sodium 40 mg 12/10/21 09:00 12/10/21 07:27 Enoxaparin Inj 40 Mg/0.4 Ml Syr SQ 01/09/22 08:59 Not Given QAM DIANA Folic Acid 1 mg 12/10/21 09:00 12/10/21 09:02 Folic Acid 1 Mg Tab PO 01/09/22 08:59 1 mg QAM DIANA Administration Piperacillin Sod/Tazobactam 115 mls @ 28.75 mls/hr 12/10/21 06:00 12/10/21 13:55 Sod 3.375 gm/ Dextrose IV 01/21/22 05:59 28.8 mls/hr Q8H DIANA Administration Protocol Daptomycin 350 mg/ Syringe 7 mls @ 3.5 mls/min 12/10/21 14:00 12/10/21 13:55 IV 12/17/21 13:59 3.5 mls/min Q24H DIANA Administration Protocol Ibuprofen 600 mg 12/10/21 14:00 12/10/21 13:56 Ibuprofen 600 Mg Tab PO 01/09/22 13:59 600 mg TID DIANA Administration Metoprolol Succinate 12.5 mg 12/10/21 09:00 12/10/21 09:02 Metoprolol Succ 25mg Ext Rel Tab PO 01/09/22 08:59 12.5 mg BID DIANA Administration Multivitamins 1 tab 12/10/21 09:00 12/10/21 09:02 Multivitamin Tab PO 01/09/22 08:59 1 tab QAM DIANA Administration Oxycodone HCl 5 - 10 mg 12/09/21 23:26 12/10/21 00:19 Oxycodone Hcl Ir 5 Mg Tab (Immediate Release) PO 12/23/21 23:25 10 mg QID PRN Administration Pain Past Medical History Medical History (Updated 12/10/21 @ 16:15 by Jairo Beltran MD) Acute pericarditis Alcohol abuse Anemia CHF (congestive heart failure) Hypertension Obesity LIANET (obstructive sleep apnea) Pulmonary hypertension Right heart failure Past Family History Family History Other Breast cancer Lung cancer Pancreatic cancer Past Surgical History Surgical History No significant past surgical history Social History Smoking Status: Former smoker tobacco type: cigarettes Hx Alcohol Use: Yes Alcohol type: beer alcohol intake frequency: a few times a week Alcohol Intake Frequency Comment: 6pack a week Hx Substance Use: No substance use type: does not use Physical Exam Vital Signs Last Vital Signs Temp 36.5 C 12/10/21 15:48 Pulse 78 12/10/21 15:48 Resp 20 12/10/21 15:48 BP 148/77 H 12/10/21 15:48 Pulse Ox 95 12/10/21 15:48 Testing Laboratory Results 12/09/21 23:47 12/10/21 05:51 APTT 33.9 Seconds (21.0-31.0) H 12/10/21 02:12 Blood Type A Positive 12/09/21 23:47 Antibody Screen NEGATIVE 12/09/21 23:47 Electrocardiogram Date: 12/10/21 DICTATED BY:Lm Brady MD Test Reason : Blood Pressure : / mmHG Vent. Rate : 069 BPM Atrial Rate : 069 BPM P-R Int : 154 ms QRS Dur : 086 ms QT Int : 434 ms P-R-T Axes : 024 000 -04 degrees QTc Int : 465 ms Normal sinus rhythm Low voltage QRS Nonspecific ST abnormality Abnormal ECG When compared with ECG of 10-DEC-2021 01:18, (unconfirmed) No significant change was found Confirmed by Lm Brady ([id number]) on 12/10/2021 12:04:32 PM Referred By: Antony Szymanski Confirmed By:Lm Brady Chest X-Ray Date: 12/10/21 XR chest 1V portable CLINICAL HISTORY: cp TECHNIQUE: Single frontal radiograph of the chest was obtained. Comparison: Comparison is made to chest radiograph 07/28/2018 FINDINGS: No lines and tubes are seen. The cardiomediastinal silhouette is normal. Lungs are underinflated but clear. No evidence of pleural effusion or pneumothorax. IMPRESSION: No acute chest disease. ACT 112: Negative or not required by law. Echocardiogram Date: 12/10/21 EF: 60-65 LV Function: normal Other Findings: + diastolic dysfunction (grade 1) small pericardial effusion, RV pressure 40-50 mm Hg
[2021-12-10] MEDS ORDERED: ROCURONIUM BROMIDE 10 MG/ML 5 ML VIAL IV ONE (16:20)
[2021-12-10] MEDS ORDERED: PROPOFOL IV EMULSION 10 MG/ML 20 ML VIAL IV ONE (16:20)
[2021-12-10] MEDS ORDERED: fentaNYL citrate 100 MCG/2 ML VIAL ONE (16:20)
[2021-12-10] MEDS ORDERED: LIDOCAINE 2% 2 ML VIAL/AMP(20MG/ML) INFIL ONE (16:20)
[2021-12-10] MEDS ORDERED: MIDAZOLAM HCL 1 MG/ML 2ML VIAL ONE (16:20)
--- NOTE | 2021-12-10 16:39 | Hospitalist Progress Note ---
Date of Service December 10, 2021 Assessment & Plan (1) Gangrene of right foot: Plan: No overt sepsis for now -- Blood cultures: Pending --Continue Vanco plus Zosyn --Podiatry on board 4 OR today Acute pericarditis --Pericardial effusion --Client Leader consulted -- Colchicine 0.6 mg twice daily and ibuprofen 600 mg 3 times daily ordered Monitor closely hx chronic diastolic CHF (EF 60 to 65%, TTE 2019), patient on the dry side PAF, patient NSR hypertension, stable pulmonary hypertension on TTE Hypokalemia secondary to diuretic Rx Ongoing alcohol abuse Chronic anemia, hemoglobin at baseline past tobacco abuse DVT prophylaxis. Lovenox subcu DNR Patient requests for his daughter to be updated of plan of care. Ms. Digna Ojeda, contact #[phone]. Admission and Anticipated Discharge Date Admission Date: December 09, 2021 Subjective Follow-up for right foot gangrene, acute pericarditis, etc. Seen resting in bed, not in distress Reporting significant pain over the right lower rib area Shortness of breath, palpitations, dizziness No fevers or chills Minimal pain over the right foot No other symptom Review of Systems Review of Systems: all noted and negative except for above Physical Exam Physical Exam: General- oriented x 3, not in distress, speaks in sentences with no effort or accessory muscle use Eyes- anicteric Neck- no JVD Lungs- clear breath sounds bilaterally, no rales/wheezes Heart- normal rate, regular rhythm; no murmurs Abdomen- normal bowel sounds, nondistended, soft, nontender Extremities- no pretibial edema, no calf tenderness Right foot: Heavy dressing in place, no active bleeding or discharge noted Positive foul odor Neuro- alert, oriented x 3; no gross focal neurologic deficits Skin- warm & dry Results & Data Results & Data ([facility]) Vital Signs (Past 12 Hours) Vital Signs Temp Pulse Pulse Resp BP Pulse Ox 12/10/21 16:11 36.9 C 72 20 122/62 96 12/10/21 15:48 36.5 C 78 20 148/77 H 95 12/10/21 15:01 70 12/10/21 10:38 36.5 C 60 18 108/58 L 95 12/10/21 08:00 67 12/10/21 06:40 36.8 C 68 16 106/64 95 all noted and reviewed including below
--- NOTE | 2021-12-10 16:49 | History & Physical Bridge Note ---
Date of Service December 10, 2021 History & Physical Bridge Note I have examined the patient, reviewed the History & Physical and in the interval since the performance of the History & Physical I have noted the following changes of clinical significance: no changes noted
[2021-12-10] MEDS ORDERED: BUPIVACAINE 0.5 % 5 MG/1 ML MPF 30ML VIAL ONE (16:59)
[2021-12-10] MEDS ORDERED: ePHEDrine sulfate 50 MG/ML AMP IV PRN (17:06)
[2021-12-10] MEDS ORDERED: ATROPINE SULFATE 0.1 MG/ML 10ML SYR IV PRN (17:06)
[2021-12-10] MEDS ORDERED: MEPERIDINE HCL 25 MG/ML CARP/VIAL IV PRN (17:06)
[2021-12-10] MEDS ORDERED: ONDANSETRON INJ 2 MG/ML 2 ML VIAL IV PRN (17:06)
[2021-12-10] MEDS ORDERED: PHENYLEPHRINE 100MCG/ML 5ML SYR IV PRN (17:06)
[2021-12-10] MEDS ORDERED: LABETALOL HCL IV 5 MG/ML 20ML IV PRN (17:06)
[2021-12-10] MEDS ORDERED: KETOROLAC 30 MG/ML VIAL ONE (17:14)
[2021-12-10] MEDS ORDERED: ONDANSETRON INJ 2 MG/ML 2 ML VIAL ONE (17:21)
[2021-12-10] MEDS ORDERED: DEXAMETHASONE SOD INJ 4 MG/ML VIAL ONE (17:21)
[2021-12-10] MEDS ORDERED: THROMBIN FOR SOLN 20000 UNIT KIT ONE (17:38)
[2021-12-10] MEDS ORDERED: GELATIN SPONGE SZ 100 ONE (17:38)
[2021-12-10] MEDS ORDERED: VASOPRESSIN 20 UNIT/ML VIAL ONE (17:39)
[2021-12-10] MEDS ORDERED: NEOSTIGMINE METHYLSULFATE 1 MG/ML 10ML VIAL ONE (17:46)
[2021-12-10] MEDS ORDERED: GLYCOPYRROLATE 0.2 MG/ML VIAL ONE (17:46)
--- NOTE | 2021-12-10 17:57 | Operative Report ---
Post Operative Report Pre & Post Diagnosis Operation Date: 12/10/21 09:50 Pre-Op Diagnosis: Gangrene of right foot Post-Op Diagnosis: Gangrene of right foot I identified the patient and participated in the time-out.: Yes Procedure Operation Date: 12/10/21 09:50 Actual Procedures p Removal of nonviable bone, soft tissue of right foot - Nader Milner DPM, [place] Surgeon Nader Milner DPM, MS Edge Sander None Estimated Blood Loss 200 Findings Consistent with Post-Op Diagnosis Necrotic non viable bone and soft tissue right foot Specimens Deep Culture Right foot Bone 1st Metatarsal Micro Right foot transmetatarsal amp Pathology Description of Procedure History of present illness: Patient is a 76 year old male who is seen for treatment of right foot necrosis. I discussed Patient's wish for amputation and reviewed surgery. All questions answered. Discussed procedure in detail and postoperative recovery. All potential risks, benefits, complications, alternatives, rehab, potential for incomplete relief of symptoms, need for further surgery, DVT, PE, , persistent pain, swelling, scarring, weakness, neurovascular, wound complications and potential for amputations were discussed with patient. Unwanted outcomes such as, but not limited to were reviewed including under correction, overcorrection, return of deformity, infection. All questions were answered. Patient has decided to proceed with procedure as indicated. Preoperative diagnosis: right foot necrosis Postoperative diagnosis: right foot necrosis Name of operation: right foot transmetatarsal amputation, with delayed primary closure Surgeon Dr. Milner Edge Sander: None Anesthesia: General anesthesia care Hemostasis: Anatomic dissection, Pneumatic thigh tourniquet Estimated blood loss: 20cc Procedure in detail: Under mild sedation the patient was brought in the operating room placed on the operating table in supine position. A pneumatic thigh tourniquet was then placed about the patient's right thigh. Following IV sedation local anesthesia was obtained about the right ankle utilizing 10 cc of a one-to-one mixture of 1% lidocaine plain and 0.5% Marcaine plain. The foot was then prepped scrubbed and draped in usual aseptic manner. An Esmarch bandage was utilized to exsanguinate the patient's right foot and the pneumatic thigh tourniquet was then inflated. Attention was then directed to the right gangrenous necrosis foot. A fishmouth incision was created utilizing a sharp, sterile, #15 blade encompassing the forefoot. The incision which was deepened through subcutaneous tissue using sharp blunt dissection. Care was taken to identify and retract all vital neurovascular structures. All bleeders were ligated and cauterized necessary. Once down to the layer of periosteum and bone, a transverse incision was made within the periosteum. A sauceda elevator was then used to free the soft tissue at the site of the metatarsal neck region. Once this was then performed with the use of a sagittal saw the metatarsals were then transversely cut in a fashion where the 1st and 3rd metatarsals were approximately the same length. The 2nd metatarsal was left slightly long as to maintain the metatarsal parabola. Once all the metatarsals have been cut, the metatarsal heads were then disarticulated from the surrounding soft tissue with the use of a 15 blade dissecting down through the medial aspect of the first metatarsal capsule including the sesamoids the soft tissue was then reflected from the plantar aspect of the metatarsal heads plantarly. The patient at that point then had the forefoot completely disarticulated and passed off to the back table in order to be sent for pathology. Attention was now directed back towards the forefoot. There was no gross infectious signs noted at this point. Deep cultures were taken. Bone from first metatarsal was sent to Microbiology. Amputated forefoot was sen to Pathology. The patient then underwent copious irrigation with the use of 3 L of lactate ringer. All participants in the surgery removed their top layer of gloves and only clean instrumentation was used from here on out. Hemostasis was acquired. To make sure that the patient will not further demarcate over the next two days it was decided the wound would not be closed. In addition, the patient had some erythema with presentation today. I did not wish for the patient to undergo closure as there was the possibility of possible infection within the wound bed. The the pneumatic tourniquet was deflated and a prompt hyperemic response was noted to the right foot. Gel foam thrombin was applied. Followed by 4x4's, ABD, Kerlix and Seth. The Patient tolerated the procedure and anesthesia well. He was transferred to recovery room vital signs stable. After postoperative monitoring the patient will be re admitted to the floor resuming all pre operative orders. I attest to the content of the Intraoperative Record and any orders documented therein. Any exceptions are noted below.
[2021-12-10] MEDS ORDERED: ceFAZolin 330 MG/ML 1 GM VIAL ONE (18:12)
[2021-12-10] MEDS: fentaNYL citrate 100 MCG/2 ML VIAL IV PRN ×4 (18:20→18:35)
--- NOTE | 2021-12-10 19:03 | Anesthesiology Progress Note ---
Date of Service December 10, 2021 Anesthesia Post Procedure Vital Signs Vital Signs: Temp Pulse Pulse Pulse Resp BP Pulse Ox 12/10/21 19:00 79 14 126/64 100 12/10/21 18:50 36.6 C 74 18 111/70 100 12/10/21 18:40 75 16 131/68 100 12/10/21 18:30 73 17 107/52 L 100 12/10/21 18:20 71 19 123/73 100 12/10/21 18:10 36.3 C L 73 23 126/71 100 12/10/21 16:11 36.9 C 72 20 122/62 96 12/10/21 15:48 36.5 C 78 20 148/77 H 95 12/10/21 15:01 70 12/10/21 10:38 36.5 C 60 18 108/58 L 95 12/10/21 08:00 67 12/10/21 06:40 36.8 C 68 16 106/64 95 12/10/21 02:00 72 16 131/68 96 12/10/21 01:38 69 20 136/76 94 12/09/21 23:32 36.7 C 71 18 136/72 97 12/09/21 22:25 67 12/09/21 20:50 73 12/09/21 20:49 36.8 C 73 73 18 136/71 97 Pain Intensity Right Foot: Pain Intensity: 3 Right Ribs: Pain Intensity: 3 Transfer of Care Handoff Completed per policy Notes Mental Status: alert / awake / arousable Patient Amnestic to Procedure: Yes Nausea / Vomiting: adequately controlled Pain: adequately controlled Airway Patency, RR, SpO2: stable & adequate BP & HR: stable & adequate Hydration State: stable & adequate Anesthetic Complications: no major complications apparent and Pt Satisfied with anesthetic care Notes: The patient is awake and comfortable. His vital signs are stable.
[2021-12-10] MEDS: FUROSEMIDE 40 MG TAB PO SCH (21:35)
[2021-12-11] MEDS ORDERED: VANCOMYCIN HCL 1,000 MG/270 ML BAG IV SCH (06:00)
[2021-12-11] MEDS: PIPERACILLIN/TAZOBACTAM 3.375 GM in DEXTROSE 5% 100 ML IV SCH ×3 (06:12→22:03)
[2021-12-11 06:58] LABS: Creatinine Clr Calc Pharmacy 81.4 ml/min; Est GFR (African American) 90.4 ml/min
--- NOTE | 2021-12-11 07:53 | Orthopedic Progress Note ---
Date of Service December 11, 2021 Assessment & Plan (1) Gangrene of right foot: Plan: Patient seen, evaluated, treated. 1.) Awaiting cultures from yesterday's TMA of Right foot for Abx coverage upon discharge. Clear margins were noted during amputation so Patient potentially able to utilize oral antibiotic coverage upon discharge. ED cultures taken on 12/09/21 show 2+ Proteus mirabilis 2+ Enterococcus faecalis awaiting sensitives 2.) Plan to close amputation site 12/12/21. Thought it best to let any tissue clearly demarcate prior to closing infected wound. 3.) Patient to remain non weight bearing to RLE. Keep dressing intact. Thank you for allowing me to participate in the Patient's care. (2) Osteomyelitis of right foot: Admission and Anticipated Discharge Date Admission Date: December 09, 2021 Subjective Patient seen at bedside status post Day #1 Right foot TMA with Delayed Primary Closure. Patient is agitated and is unhappy he is in hospital. He does state his wish is to be discharged. Review of Systems Review of Systems: Reviewed hospital notes. No changes. Physical Exam Physical Exam: Dressing intact. Results & Data ([facility]) Vital Signs (Past 12 Hours) Vital Signs Temp Pulse Pulse Resp BP Pulse Ox 12/11/21 07:02 36.9 C 73 16 113/67 90 12/11/21 02:35 36.6 C 71 16 87/30 L 96 12/11/21 02:08 63 12/10/21 22:47 36.9 C 69 16 107/69 94 12/10/21 20:26 36.7 C 78 16 119/58 L 92
[2021-12-11] MEDS: FOLIC ACID 1 MG TAB PO SCH (09:48)
[2021-12-11] MEDS: COLCHICINE 0.6 MG TAB PO SCH ×2 (09:48→20:56)
[2021-12-11] MEDS: IBUPROFEN 600 MG TAB PO SCH ×3 (09:48→20:57)
[2021-12-11] MEDS: ENOXAPARIN INJ 40 MG/0.4 ML SYR SQ SCH (09:49)
[2021-12-11] MEDS: MULTIVITAMIN TAB PO SCH (09:49)
[2021-12-11] MEDS: THIAMINE HCL 100 MG TAB PO SCH (09:49)
[2021-12-11] MEDS: oxyCODONE HCL IR 5 MG TAB (IMMEDIATE RELEASE) PO PRN ×2 (09:58→15:55)
[2021-12-11 11:03] LABS: BUN Creatinine Ratio 11.5 (10-20); Calcium 8.3 mg/dl (8.5-10.1); Creatinine Clr Calc Pharmacy 74.4 ml/min; Est GFR (Non-African American) 69.9 ml/min; Potassium 3.7 mmol/L (3.5-5.1)
[2021-12-11] MEDS: DAPTOmycin 350 MG in SYRINGE 0 ML IV SCH (13:38)
--- NOTE | 2021-12-11 20:01 | Hospitalist Progress Note ---
Date of Service December 11, 2021 Assessment & Plan (1) Gangrene of right foot: Plan: No overt sepsis for now -- Blood cultures: Pending --Continue Vanco plus Zosyn --Podiatry on board 4 OR today Acute pericarditis --Pericardial effusion --Medication Tech consulted -- Colchicine 0.6 mg twice daily and ibuprofen 600 mg 3 times daily ordered Monitor closely hx chronic diastolic CHF (EF 60 to 65%, TTE 2018), patient on the dry side PAF, patient NSR hypertension, stable pulmonary hypertension on TTE Hypokalemia secondary to diuretic Rx Ongoing alcohol abuse Chronic anemia, hemoglobin at baseline past tobacco abuse DVT prophylaxis. Lovenox subcu DNR Patient requests for his daughter to be updated of plan of care. Ms. Digna Ojeda, contact #[phone]. Admission and Anticipated Discharge Date Admission Date: December 09, 2021 Results & Data Results & Data ([facility]) Vital Signs (Past 12 Hours) Vital Signs Temp Pulse Pulse Resp BP Pulse Ox 12/11/21 19:49 36.4 C L 68 16 146/72 H 100 12/11/21 16:39 36.4 C L 67 20 174/75 H 100 12/11/21 15:41 85 12/11/21 11:00 36.7 C 78 20 138/72 96 12/11/21 08:20 70
[2021-12-11] MEDS: FUROSEMIDE 40 MG TAB PO SCH (20:57)
[2021-12-11] MEDS: CALCIUM CARBONATE 500 MG CHEWABLE TAB PO PRN (23:44)
[2021-12-12] MEDS: oxyCODONE HCL IR 5 MG TAB (IMMEDIATE RELEASE) PO PRN ×2 (01:58→21:05)
[2021-12-12] MEDS: HYDROmorphone INJ 0.5 MG/0.5 ML SYR IV PRN ×3 (05:24→19:56)
[2021-12-12] MEDS: PIPERACILLIN/TAZOBACTAM 3.375 GM in DEXTROSE 5% 100 ML IV SCH ×3 (05:24→21:07)
[2021-12-12] MEDS: THIAMINE HCL 100 MG TAB PO SCH (07:45)
[2021-12-12] MEDS: CALCIUM CARBONATE 500 MG CHEWABLE TAB PO PRN (07:45)
[2021-12-12] MEDS: COLCHICINE 0.6 MG TAB PO SCH ×2 (07:45→21:06)
[2021-12-12] MEDS: IBUPROFEN 600 MG TAB PO SCH ×3 (07:46→21:06)
[2021-12-12] MEDS: FOLIC ACID 1 MG TAB PO SCH (07:46)
[2021-12-12] MEDS: MULTIVITAMIN TAB PO SCH (07:46)
[2021-12-12] MEDS: ENOXAPARIN INJ 40 MG/0.4 ML SYR SQ SCH (07:47)
--- NOTE | 2021-12-12 08:54 | Orthopedic Progress Note ---
Date of Service December 12, 2021 Assessment & Plan (1) Gangrene of right foot: Plan: Patient seen, evaluated, treated. 1.) Patient is NPO and Scheduled for Sx, delayed Primary closure of right foot TMA today 12/12/21 at 2:30pm 2.) Reviewed and appreciate ID consult and abx recommendation, Awaiting sensitivities from culture Thank you for allowing me to participate in the Patient's care. (2) Osteomyelitis of right foot: Admission and Anticipated Discharge Date Admission Date: December 09, 2021 Subjective Patient seen at bedside status post Day #2 Right foot TMA with Delayed Primary Closure. Patient is resting comfortable. He has no complaints. Review of Systems Review of Systems: Reviewed hospital notes. No changes. Physical Exam Physical Exam: Dressing intact. Constitutional: WD/WN, vitals as above Cardiovascular: RRR, no murmur, no edema Psychiatric: A+Ox3, euthymic affect Results & Data ([facility]) Vital Signs (Past 12 Hours) Vital Signs Temp Pulse Pulse Pulse Resp BP Pulse Ox 12/12/21 08:03 36.8 C 75 20 147/79 H 98 12/12/21 06:42 36.9 C 68 16 144/58 H 95 12/12/21 02:43 37.0 C 73 14 132/76 96 12/11/21 23:13 37.1 C 68 12 184/72 H 96 12/11/21 23:00 66
[2021-12-12 09:04] LABS: BUN Creatinine Ratio 12.7 (10-20); Calcium 8.3 mg/dl (8.5-10.1); Creatinine Clr Calc Pharmacy 70.6 ml/min; Est GFR (African American) 75.7 ml/min; Est GFR (Non-African American) 65.3 ml/min; Potassium 3.3 mmol/L (3.5-5.1)
[2021-12-12] MEDS: DAPTOmycin 350 MG in SYRINGE 0 ML IV SCH (13:47)
[2021-12-12] MEDS ORDERED: PROPOFOL IV EMULSION 10 MG/ML 20 ML VIAL IV ONE ×2 (15:11→16:23)
--- NOTE | 2021-12-12 15:53 | Anesthesiology Consultation ---
Date of Service December 12, 2021 Assessment & Plan Chart Review Chart Review: Acceptable Risk for Surgery and Patient NOT seen in Pre Admission Testing Consults Requested none ASA ASA4 Proposed Anesthesia Anesthesia Type: MAC Risk / Benefits Reviewed With: PT / POA / Parent / Guardian, Accepts Plan and Informed Consent Obtained Additional Comments: covid test neg. History Surgery Operation Date: 12/10/21 09:50 Proposed Procedures p Right Foot Transmetatarsal Amputation - Nader Milner DPM, MS Operation Date: 12/12/21 09:00 Proposed Procedures p Right Foot Delayed Primary Closure - Nader Milner DPM, MS Height/Weight Height: 5 ft 11 in Weight: 102.1 kg Allergies Allergy/AdvReac Type Severity Reaction Status Date / Time acetaminophen [From Vicodin] Allergy Hives Verified 07/26/18 17:05 hydrocodone [From Vicodin] Allergy Hives Verified 07/26/18 17:05 Medications Home Medications Medication Instructions Recorded Confirmed Last Taken aspirin 81 mg tablet,delayed 81 mg PO DAILY 07/26/18 12/10/21 Unknown release furosemide 40 mg tablet 40 mg PO HS 07/26/18 12/10/21 12/09/21 40 mg potassium chloride 10 mEq 10 meq PO BID 07/26/18 12/10/21 12/09/21 tablet,extended release 10 meq tramadol 50 mg tablet 50 mg PO Q6H PRN 07/26/18 12/10/21 Unknown acetaminophen 325 mg tablet (Mapap 650 mg PO Q4H PRN #100 tab 08/01/18 12/10/21 12/09/21 (acetaminophen)) 650 mg metoprolol succinate 25 mg 12.5 mg PO BID #30 tab 08/01/18 12/10/21 12/09/21 tablet,extended release 24 hr 12.5 mg allopurinol 300 mg tablet 300 mg DAILY 12/10/21 12/10/21 12/09/21 300 mg furosemide 80 mg tablet 80 mg PO QAM 12/10/21 12/10/21 12/09/21 80 Active Medications Generic Name Dose Route Start Last Admin Trade Name Freq PRN Reason Stop Dose Admin Acetaminophen 650 mg 12/09/21 23:26 12/10/21 03:48 Acetaminophen 325 Mg Tab PO 01/08/22 23:25 650 mg Q6H PRN Administration Fever/pain Calcium Carbonate 500 mg 12/11/21 22:58 12/12/21 07:45 Calcium Carbonate 500 Mg Chewable Tab PO 01/10/22 22:57 500 mg Q6H PRN Administration Heartburn Colchicine 0.6 mg 12/10/21 13:05 12/12/21 07:45 Colchicine 0.6 Mg Tab PO 01/09/22 13:04 0.6 mg BID DIANA Administration Enoxaparin Sodium 40 mg 12/10/21 09:00 12/12/21 07:47 Enoxaparin Inj 40 Mg/0.4 Ml Syr SQ 01/09/22 08:59 Not Given QAM DIANA Folic Acid 1 mg 12/10/21 09:00 12/12/21 07:46 Folic Acid 1 Mg Tab PO 01/09/22 08:59 1 mg QAM DIANA Administration Furosemide 40 mg 12/10/21 21:00 12/11/21 20:57 Furosemide 40 Mg Tab PO 01/09/22 20:59 40 mg HS DIANA Administration Hydromorphone HCl 0.5 mg 12/09/21 23:26 12/12/21 09:28 Hydromorphone Inj 0.5 Mg/0.5 Ml Syr IV 12/23/21 23:25 0.5 mg Q3H PRN Administration Pain Piperacillin Sod/Tazobactam 115 mls @ 28.75 mls/hr 12/10/21 06:00 12/12/21 13:47 Sod 3.375 gm/ Dextrose IV 01/21/22 05:59 28.8 mls/hr Q8H DIANA Administration Protocol Daptomycin 350 mg/ Syringe 7 mls @ 3.5 mls/min 12/10/21 14:00 12/12/21 13:47 IV 12/17/21 13:59 3.5 mls/min Q24H DIANA Administration Protocol Ibuprofen 600 mg 12/10/21 14:00 12/12/21 13:47 Ibuprofen 600 Mg Tab PO 01/09/22 13:59 600 mg TID DIANA Administration Multivitamins 1 tab 12/10/21 09:00 12/12/21 07:46 Multivitamin Tab PO 01/09/22 08:59 1 tab QAM DIANA Administration Oxycodone HCl 5 - 10 mg 12/09/21 23:26 12/12/21 01:58 Oxycodone Hcl Ir 5 Mg Tab (Immediate Release) PO 12/23/21 23:25 10 mg QID PRN Administration Pain Thiamine HCl 100 mg 12/11/21 09:00 12/12/21 07:45 Thiamine Hcl 100 Mg Tab PO 01/10/22 08:59 100 mg QAM DIANA Administration NPO Date Last Intake of Fluids: 12/11/21 Time Last Intake of Fluids: 13:49 Last Intake of Fluids Comment: sip w/ Ibuprofen Date Last Intake of Solids: 12/11/21 Time Last Intake of Solids: 17:30 Past Medical History Medical History Acute pericarditis Alcohol abuse Anemia CHF (congestive heart failure) Hypertension Obesity LIANET (obstructive sleep apnea) Pulmonary hypertension Right heart failure Exercise / Class Metabolic Activity III < 4 Walking/Shop/Light housework Past Family History Family History Other Breast cancer Lung cancer Pancreatic cancer Past Surgical History Surgical History No significant past surgical history Past Anesthesia History No Hx of Anesthesia Complications and No Family Hx of Anesthesia Complications History of PONV No Hx of PONV and No Hx of Motion Sickness Social History Smoking Status: Former smoker tobacco type: cigarettes Hx Alcohol Use: Yes Alcohol type: beer alcohol intake frequency: a few times a week Alcohol Intake Frequency Comment: 6pack a week Hx Substance Use: No substance use type: does not use Physical Exam Vital Signs Last Vital Signs Temp 36.7 C 12/12/21 15:36 Pulse 76 12/12/21 15:36 Resp 18 12/12/21 15:36 BP 134/97 12/12/21 15:36 Pulse Ox 98 12/12/21 15:36 Constitutional + obese ENMT Mouth: + dentition abnormality, + edentulous, + poor dentition and + loose teeth Thyromental Distance: > or= 3.5 Finger Breadths Mallampati Class: II Neck normal visual inspection, trachea midline and + facial hair; neck extension not limited Respiratory normal respiratory effort Auscultation: + diminished lung sounds Cardiovascular Rate/Rhythm: regular rate and regular rhythm Heart Sounds: no murmur Vessels: no carotid bruit Musculoskeletal Spine: normal cervical ROM Extremities: full ROM of extremities Neurologic moves all extremities Motor/Sensory: + sensory deficit (feet) Psychiatric Orientation: alert and oriented x 3 Testing Laboratory Results 12/09/21 23:47 12/12/21 08:00 APTT 33.9 Seconds (21.0-31.0) H 12/10/21 02:12 Blood Type A Positive 12/09/21 23:47 Antibody Screen NEGATIVE 12/09/21 23:47 12/10/21 17:30 Gram Stain - Final Foot,Right Aerobic and Anaerobic Culture - Preliminary Proteus mirabilis 12/10/21 17:30 Gram Stain - Final Foot,Right Aerobic and Anaerobic Culture - Preliminary Proteus mirabilis 12/10/21 09:09 Aerobic Blood Culture - Preliminary Blood No growth in Aerobic bottle after 48 hours. Anaerobic Blood Culture - Preliminary No growth in Anaerobic bottle after 48 hours. 12/10/21 09:22 Aerobic Blood Culture - Preliminary Blood No growth in Aerobic bottle after 48 hours. Anaerobic Blood Culture - Preliminary No growth in Anaerobic bottle after 48 hours. 12/12/21 07:49 POC Glucose 107 H
[2021-12-12] MEDS ORDERED: fentaNYL citrate 100 MCG/2 ML VIAL ONE ×2 (16:11→17:17)
[2021-12-12] MEDS ORDERED: MIDAZOLAM HCL 1 MG/ML 2ML VIAL ONE (16:22)
[2021-12-12] MEDS ORDERED: LIDOCAINE 1% LOCAL 20 ML VIAL INJ ONE (16:42)
--- NOTE | 2021-12-12 16:59 | History & Physical Bridge Note ---
Date of Service December 12, 2021 History & Physical Bridge Note I have examined the patient, reviewed the History & Physical and in the interval since the performance of the History & Physical I have noted the following changes of clinical significance: no changes noted
--- NOTE | 2021-12-12 17:00 | Operative Report ---
Post Operative Report Pre & Post Diagnosis Operation Date: 12/10/21 09:50 Pre-Op Diagnosis: Gangrene of right foot Post-Op Diagnosis: Gangrene of right foot Operation Date: 12/12/21 09:00 Pre-Op Diagnosis: Gangrene of right foot Post-Op Diagnosis: Gangrene of right foot I identified the patient and participated in the time-out.: Yes Procedure Operation Date: 12/10/21 09:50 Actual Procedures p Removal of nonviable bone, soft tissue of right foot - Nader Milner DPM, MS Operation Date: 12/12/21 09:00 Actual Procedures p Right Foot Delayed Primary Closure - Nader Milner DPM, MS Surgeon Nader Milner DPM, MS File Machine Operator None Estimated Blood Loss 10 Findings Consistent with Post-Op Diagnosis demarcated borders Specimens None Drains None Anesthesia Type MAC Complications None Description of Procedure Description of Procedure History of present illness: Patient is a 76 year oldmale who is seen for ongoing treatment of right foot necrosis. Patient is status post #2 days [facility] and returns for definitive closure of wound. Wound was left open due to heighten signs of infections and for soft tissue demarcation. Pathology reports from [facility] note clear margins for wound closure. I discussed soft tissue debridement and delayed primary closure.All questions answered. Discussed procedure in detail and postoperative recovery. All potential risks, benefits, complications, alternatives, rehab, potential for incomplete relief of symptoms, need for further surgery, DVT, PE, , persistent pain, swelling, scarring, weakness, neurovascular, wound complications and potential for amputations were discussed with patient. Unwanted outcomes such as, but not limited to were reviewed including under correction, overcorrection, return of deformity, infection. All questions were answered. Patient has decided to proceed with procedure as indicated. Preoperative diagnosis: right foot necrosis status post Transmetatarsal amputation Postoperative diagnosis: Same Name of operation: right foot foot debridement, with delayed primary closure Surgeon Dr. Milner File Machine Operator: None Anesthesia: Monitored anesthesia care Hemostasis: Anatomic dissection Estimated blood loss: None Procedure in detail: Under mild sedation the patient was brought in the operating room placed on the operating table in supine position. Following IV sedation local anesthesia was obtained about the right ankle utilizing 10 cc of 1% lidocaine plain. The foot was then prepped scrubbed and draped in usual aseptic manner. Attention was then directed to the right foot. Minimal necrosis present as well as residual tophaceous gout. Utilizing a sharp, sterile, #15 blade wound margins were freshen. Demarcated tissue was excised where necessary including muscle and tendon. Care was taken to identify and retract all vital neurovascular structures. All bleeders were ligated and cauterized necessary. Copious amounts of sterile normal saline was utilized to flush the wound. The previous fish mouth incision was reapproximated coapted utilizing 2-0 Nylon in horizontal mattress and simple suture technique. The incision was dressed with Betadine soaked Adaptic followed by sterile compressive dressing consisting of 4 x 4's and Robert. The Patient tolerated the procedure and anesthesia well. He was transferred to recovery room vital signs stable. After postoperative monitoring the patient will be re admitted to the floor resuming all pre operative orders. I attest to the content of the Intraoperative Record and any orders documented therein. Any exceptions are noted below.
[2021-12-12] MEDS ORDERED: FLUMAZENIL 0.1 MG/1 ML 10 ML VIAL IV PRN (17:07)
[2021-12-12] MEDS ORDERED: NALOXONE HCL 0.4 MG/1 ML VIAL/CARP IV PRN (17:07)
[2021-12-12] MEDS ORDERED: LABETALOL HCL IV 5 MG/ML 20ML IV PRN (17:07)
[2021-12-12] MEDS ORDERED: ONDANSETRON INJ 2 MG/ML 2 ML VIAL IV PRN (17:07)
[2021-12-12] MEDS ORDERED: ATROPINE SULFATE 0.1 MG/ML 10ML SYR IV PRN (17:07)
[2021-12-12] MEDS ORDERED: PROMETHAZINE HCL 12.5 MG in SODIUM CHLORIDE 0.9% 50 ML IV PRN (17:07)
[2021-12-12] MEDS ORDERED: ePHEDrine sulfate 50 MG/ML AMP IV PRN (17:07)
[2021-12-12] MEDS: fentaNYL citrate 100 MCG/2 ML VIAL IV PRN ×2 (17:19→17:26)
--- NOTE | 2021-12-12 17:35 | Anesthesiology Progress Note ---
Date of Service December 12, 2021 Anesthesia Post Procedure Vital Signs Vital Signs: Temp Pulse Pulse Pulse Resp BP Pulse Ox 12/12/21 17:30 36.2 C L 78 17 151/45 H 96 12/12/21 17:20 76 17 120/56 L 97 12/12/21 17:10 73 21 113/69 100 12/12/21 17:01 36 C L 74 17 150/61 H 100 12/12/21 15:36 36.7 C 76 18 134/97 98 12/12/21 14:55 73 12/12/21 11:56 36.8 C 71 18 120/70 93 12/12/21 11:23 36.7 C 69 19 162/73 H 97 12/12/21 08:03 36.8 C 75 20 147/79 H 98 12/12/21 07:10 72 12/12/21 06:42 36.9 C 68 16 144/58 H 95 12/12/21 02:43 37.0 C 73 14 132/76 96 12/11/21 23:13 37.1 C 68 12 184/72 H 96 12/11/21 23:00 66 12/11/21 19:49 36.4 C L 68 16 146/72 H 100 Pain Intensity Right Foot: Pain Intensity: 5 Right Ribs: Pain Intensity: 3 Transfer of Care Handoff Completed per policy Notes Mental Status: alert / awake / arousable Patient Amnestic to Procedure: Yes Nausea / Vomiting: adequately controlled Pain: adequately controlled Airway Patency, RR, SpO2: stable & adequate BP & HR: stable & adequate Hydration State: stable & adequate Anesthetic Complications: no major complications apparent
--- NOTE | 2021-12-12 20:33 | Hospitalist Progress Note ---
Date of Service December 12, 2021 Assessment & Plan (1) Gangrene of right foot: Plan: No overt sepsis for now -- Blood cultures: Pending --Continue Vanco plus Zosyn --Podiatry on board 4 OR today Acute pericarditis --Pericardial effusion --[employer] consulted -- Colchicine 0.6 mg twice daily and ibuprofen 600 mg 3 times daily ordered Monitor closely hx chronic diastolic CHF (EF 60 to 65%, TTE 2018), patient on the dry side PAF, patient NSR hypertension, stable pulmonary hypertension on TTE Hypokalemia secondary to diuretic Rx Ongoing alcohol abuse Chronic anemia, hemoglobin at baseline past tobacco abuse DVT prophylaxis. Lovenox subcu DNR Patient requests for his daughter to be updated of plan of care. Ms. Digna Ojeda, contact #[phone]. Admission and Anticipated Discharge Date Admission Date: December 09, 2021 Results & Data Results & Data ([facility]) Vital Signs (Past 12 Hours) Vital Signs Temp Pulse Pulse Pulse Resp BP Pulse Ox 12/12/21 19:00 36.4 C L 88 18 122/72 99 12/12/21 18:25 89 12/12/21 17:58 36.6 C 71 70 18 158/58 H 96 12/12/21 17:40 72 14 147/44 H 95 12/12/21 17:30 36.2 C L 78 17 151/45 H 96 12/12/21 17:20 76 17 120/56 L 97 12/12/21 17:10 73 21 113/69 100 12/12/21 17:01 36 C L 74 17 150/61 H 100 12/12/21 15:36 36.7 C 76 18 134/97 98 12/12/21 14:55 73 12/12/21 11:56 36.8 C 71 18 120/70 93 12/12/21 11:23 36.7 C 69 19 162/73 H 97
[2021-12-12] MEDS: FUROSEMIDE 40 MG TAB PO SCH (21:06)
[2021-12-12] MEDS: POTASSIUM CHLORIDE 10 MEQ TABCR PO SCH (21:09)
[2021-12-13] MEDS: METOPROLOL SUCC 25MG EXT REL TAB PO SCH (03:57)
[2021-12-13] MEDS: PIPERACILLIN/TAZOBACTAM 3.375 GM in DEXTROSE 5% 100 ML IV SCH ×3 (05:30→21:11)
[2021-12-13] MEDS: oxyCODONE HCL IR 5 MG TAB (IMMEDIATE RELEASE) PO PRN ×4 (06:05→23:27)
[2021-12-13 07:58] LABS: BUN Creatinine Ratio 8.6 (10-20); Calcium 7.7 mg/dl (8.5-10.1); Creatinine Clr Calc Pharmacy 83.5 ml/min; Est GFR (African American) 92.7 ml/min; Potassium 3.1 mmol/L (3.5-5.1)
[2021-12-13] MEDS: COLCHICINE 0.6 MG TAB PO SCH ×2 (08:12→21:09)
[2021-12-13] MEDS: FOLIC ACID 1 MG TAB PO SCH (08:13)
[2021-12-13] MEDS: IBUPROFEN 600 MG TAB PO SCH ×3 (08:13→21:10)
[2021-12-13] MEDS: ENOXAPARIN INJ 40 MG/0.4 ML SYR SQ SCH (08:13)
[2021-12-13] MEDS: THIAMINE HCL 100 MG TAB PO SCH (08:13)
[2021-12-13] MEDS: MULTIVITAMIN TAB PO SCH (08:13)
[2021-12-13] MEDS: POTASSIUM CHLORIDE 10 MEQ TABCR PO SCH ×2 (08:17→21:11)
[2021-12-13] MEDS: CALCIUM CARBONATE 500 MG CHEWABLE TAB PO PRN (08:17)
[2021-12-13] MEDS: NICOTINE 14 MG/24 HR PATCH TD SCH (10:56)
[2021-12-13] MEDS ORDERED: POTASSIUM CHLORIDE CRTAB 20 MEQ TABCR PO STA (13:05)
[2021-12-13] MEDS: LOPERAMIDE HCL 2 MG CAP PO PRN ×2 (17:26→21:16)
--- NOTE | 2021-12-13 19:52 | Hospitalist Progress Note ---
Date of Service December 13, 2021 Assessment & Plan (1) Gangrene of right foot: Plan: -- Blood cultures: We will follow-up with [facility] norris Ernst regarding updated results Wound cultures: Positive for Enterococcus and Proteus --ID consulted: Recommend to continue Zosyn Status post transmetatarsal amputation Status post wound closure -- Delivery Rep following Acute pericarditis --Pericardial effusion --Furniture Mover Driver consulted -- Colchicine 0.6 mg twice daily and ibuprofen 600 mg 3 times daily ordered --Chest pain resolved hx chronic diastolic CHF (EF 60 to 65%, TTE 2018) -- Euvolemic PAF, patient NSR hypertension, stable pulmonary hypertension on TTE Ongoing alcohol abuse Chronic anemia, hemoglobin at baseline past tobacco abuse DVT prophylaxis. Lovenox subcu DNR Position Most likely will need to transition to inpatient rehab Admission and Anticipated Discharge Date Admission Date: December 09, 2021 Subjective Follow-up for right foot gangrene, etc. Seen resting in bed, comfortable, not in distress In good spirits States he feels fine overall except for right foot pain over the surgical site Denies chest pain, shortness of breath, palpitations, dizziness Is having loose stools, but no abdominal pain, nausea vomiting Tolerating diet well No other symptom Review of Systems Review of Systems: all noted and negative except for above Physical Exam Physical Exam: General- oriented x 3, not in distress, speaks in sentences with no effort or accessory muscle use Eyes- anicteric Neck- no JVD Lungs- clear breath sounds bilaterally, no rales/wheezes Heart- normal rate, regular rhythm; no murmurs Abdomen- normal bowel sounds, nondistended, soft, nontender Extremities- no pretibial edema, no calf tenderness Right foot, heavy dressing in place, no bleeding or discharge noted Neuro- alert, oriented x 3; no gross focal neurologic deficits Skin- warm & dry Results & Data Results & Data ([facility]) Vital Signs (Past 12 Hours) Vital Signs Temp Pulse Pulse Resp BP Pulse Ox 12/13/21 16:04 36.7 C 73 18 142/81 H 95 12/13/21 11:51 36.8 C 73 18 147/76 H 96 12/13/21 07:56 37.0 C 73 20 146/73 H 97 12/13/21 07:51 71 all noted and reviewed including below
[2021-12-13] MEDS: FUROSEMIDE 40 MG TAB PO SCH (21:09)
--- NOTE | 2021-12-13 21:31 | Orthopedic Progress Note ---
Date of Service December 13, 2021 Assessment & Plan (1) Gangrene of right foot: Plan: Patient seen, evaluated, treated. Reviewed similar results from Cultures from both [facility] OR and at bedside at ED. Reviewed ID recommendation of discharge on Daptomycin. Thank you for allowing me to participate in the Patient's care. (2) Osteomyelitis of right foot: Admission and Anticipated Discharge Date Admission Date: December 09, 2021 Subjective Patient status post Day #1 delayed primary closure. Review of Systems Review of Systems: Reviewed hospital notes. No changes. Physical Exam Physical Exam: Dressing intact. Constitutional: WD/WN, vitals as above Cardiovascular: RRR, no murmur, no edema Psychiatric: A+Ox3, euthymic affect Results & Data ([facility]) Vital Signs (Past 12 Hours) Vital Signs Temp Pulse Pulse Resp BP Pulse Ox 12/13/21 19:44 36.8 C 74 18 118/57 L 95 12/13/21 16:04 36.7 C 73 18 142/81 H 95 12/13/21 11:51 36.8 C 73 18 147/76 H 96 Laboratory Results Specimen Description Abscess [facility] Special Requests None [facility] Gram Stain 2+ Polys 2+ Gram Negative Rods [facility] Culture 2+ Proteus mirabilis 2+ Enterococcus faecalis [facility] Report Final Result 12/11/2021 [facility] Organism 2+ Proteus mirabilis [facility] Organism 2+ Enterococcus faecalis [facility] Susceptibility 2+ enterococcus faecalis (microscan samantha-ug/ml (shirley)) Not Specified Ampicillin <=2 Sensitive Gentamicin Synergy Sensitive Vancomycin 1 Sensitive Susceptibility 2+ proteus mirabilis (microscan samantha-ug/ml (shirley)) Not Specified Amoxicillin/Clavulanate >16/8 Resistant Ampicillin >16 Resistant Ampicillin/Sulbactam 16/8 Intermediate Aztreonam <=4 Sensitive Cefazolin >16 Resistant Cefepime <=2 Sensitive Cefotaxime <=2 Sensitive Cefoxitin <=8 Sensitive Ceftazidime <=1 Sensitive Ceftriaxone <=1 Sensitive Cefuroxime >16 Resistant Ciprofloxacin <=0.25 Sensitive Ertapenem <=0.5 Sensitive Gentamicin <=2 Sensitive Levofloxacin <=0.5 Sensitive Meropenem <=1 Sensitive Piperacillin/Tazobactam <=8 Sensitive Sulfa/Trimethoprim <=0.5/9.5 Sensitive Tetracycline >8 Resistant Specimen Collected: 12/09/21 4:12 PM Last Resulted: 12/11/21 7:56 AM Gram Stain Final 12/10/21 Gram Stain Result Rare WBCs Seen No Organisms Seen Aero/Rabia Cult Preliminary 12/13/21-1410 Organism 1 Proteus mirabilis Quantity Few Sens Sensitivities to Follow +MixWound Plus Low Counts of Probable Skin Amber P mirabili RX M.I.C. --- --------- Amox/Clav S <=8/4 Ampicillin S <=8 Amp/Sul S <=8/4 Cefazolin S <=2 Cefepime S <=2 Ceftriaxone S <=1 Ciprofloxacin S <=0.25 Ertapenem S <=0.5 Gentamicin S <=4 Levofloxacin S <=0.5 Meropenem S <=1 Tobramycin S <=4 Trimeth/Sulfa S <=2/38 Pip/Tazo S <=16 S = SENSITIVE I = INTERMEDIATE R = RESISTANT
[2021-12-14] MEDS: PIPERACILLIN/TAZOBACTAM 3.375 GM in DEXTROSE 5% 100 ML IV SCH ×3 (05:58→21:21)
[2021-12-14 07:32] LABS: BUN Creatinine Ratio 6.3 (10-20); Creatinine Clr Calc Pharmacy 98.3 ml/min; Est GFR (African American) 101.8 ml/min; Est GFR (Non-African American) 87.8 ml/min; Potassium 3.3 mmol/L (3.5-5.1)
[2021-12-14] MEDS: POTASSIUM CHLORIDE 10 MEQ TABCR PO SCH (08:25)
[2021-12-14] MEDS: IBUPROFEN 600 MG TAB PO SCH ×3 (08:25→21:22)
[2021-12-14] MEDS: COLCHICINE 0.6 MG TAB PO SCH ×2 (08:25→21:21)
[2021-12-14] MEDS: ENOXAPARIN INJ 40 MG/0.4 ML SYR SQ SCH (08:26)
[2021-12-14] MEDS: MULTIVITAMIN TAB PO SCH (08:26)
[2021-12-14] MEDS: THIAMINE HCL 100 MG TAB PO SCH (08:26)
[2021-12-14] MEDS: METOPROLOL SUCC 25MG EXT REL TAB PO SCH (08:26)
[2021-12-14] MEDS: NICOTINE 14 MG/24 HR PATCH TD SCH (08:26)
[2021-12-14] MEDS: FOLIC ACID 1 MG TAB PO SCH (08:27)
[2021-12-14] MEDS: oxyCODONE HCL IR 5 MG TAB (IMMEDIATE RELEASE) PO PRN (08:30)
[2021-12-14] MEDS: POTASSIUM CHLORIDE CRTAB 20 MEQ TABCR PO SCH ×2 (09:44→21:22)
--- NOTE | 2021-12-14 16:38 | Hospitalist Progress Note ---
Date of Service December 14, 2021 Assessment & Plan (1) Gangrene of right foot: Plan: -- Blood cultures: requested updated results from [facility] Wound cultures: Positive for Enterococcus and Proteus --ID consulted: Recommend to continue Zosyn, then transition to Cipro plus Augmentin upon discharge x14 days total Status post transmetatarsal amputation Status post wound closure -- Plant Operator following Acute pericarditis --Pericardial effusion --Business Development Consultant consulted -- Colchicine 0.6 mg twice daily and ibuprofen 600 mg 3 times daily ordered --Chest pain resolved hx chronic diastolic CHF (EF 60 to 65%, TTE 2018) -- Euvolemic PAF, patient NSR hypertension, stable pulmonary hypertension on TTE Ongoing alcohol abuse Chronic anemia, hemoglobin at baseline past tobacco abuse DVT prophylaxis. Lovenox subcu DNR Disposition PT OT evaluation Most likely will need to transition to inpatient rehab Admission and Anticipated Discharge Date Admission Date: December 09, 2021 Subjective Follow-up for status post right foot transmetatarsal amputation, right foot gangrene, acute pericarditis, etc. Seen resting in bed, in good spirits Still having right foot pain, evaluate analgesia No chest pain, shortness of breath, palpitations Fevers or chills Appetite good No other symptoms Review of Systems Review of Systems: all noted and negative except for above Physical Exam Physical Exam: General- oriented x 3, not in distress, speaks in sentences with no effort or accessory muscle use Eyes- anicteric Neck- no JVD Lungs- clear BS bilaterally, no rales/wheezes Heart- normal rate, regular rhythm; no murmurs Abdomen- normal bowel sounds, nondistended, soft, nontender Extremities- Right foot: Heavy dressing in place, no bleeding or discharge Trace pretibial edema right lower extremity, no erythema, no tenderness Essentially normal left lower extremity Neuro- alert, oriented x 3; no gross focal neurologic deficits Skin- warm & dry Results & Data Results & Data ([facility]) Vital Signs (Past 12 Hours) Vital Signs Temp Pulse Pulse Resp BP Pulse Ox 12/14/21 16:05 36.7 C 60 18 144/90 H 100 12/14/21 15:13 66 12/14/21 08:30 66 12/14/21 07:51 36.7 C 66 18 148/68 H 98 all noted and reviewed including below
[2021-12-14] MEDS: FUROSEMIDE 40 MG TAB PO SCH (21:21)
[2021-12-15] MEDS: PIPERACILLIN/TAZOBACTAM 3.375 GM in DEXTROSE 5% 100 ML IV SCH ×3 (06:23→22:19)
[2021-12-15] MEDS: oxyCODONE HCL IR 5 MG TAB (IMMEDIATE RELEASE) PO PRN ×2 (06:28→22:51)
--- NOTE | 2021-12-15 07:42 | Orthopedic Progress Note ---
Date of Service December 15, 2021 Assessment & Plan (1) Gangrene of right foot: Plan: Patient seen, evaluated, treated. Reviewed ID recommendation to continue Zosyn, then transition to Cipro plus Augmentin upon discharge x14 days total Awaiting Vacular consult. Ok for DC per podiatry. I did review case / post operative care with daughter and Patient and they will follow up in office. I will continue to follow while in house. Thank you for allowing me to participate in the Patient's care. (2) Osteomyelitis of right foot: Admission and Anticipated Discharge Date Admission Date: December 09, 2021 Subjective Patient seen at bedside. He is in no acute distress. Patient has no complaints. Physical Exam Physical Exam: Dressing intact. Constitutional: WD/WN, vitals as above Cardiovascular: RRR, no murmur, no edema Psychiatric: A+Ox3, euthymic affect Results & Data ([facility]) Vital Signs (Past 12 Hours) Vital Signs Temp Pulse Pulse Resp BP BP Pulse Ox 12/15/21 07:03 75 12/15/21 04:35 36.9 C 67 18 141/69 H 93 12/15/21 00:31 70 12/14/21 22:59 37 C 71 18 128/64 95 12/14/21 19:52 36.7 C 75 18 144/77 H 98
[2021-12-15] MEDS: ENOXAPARIN INJ 40 MG/0.4 ML SYR SQ SCH (08:08)
[2021-12-15] MEDS: FOLIC ACID 1 MG TAB PO SCH (08:09)
[2021-12-15] MEDS: IBUPROFEN 600 MG TAB PO SCH ×3 (08:09→20:27)
[2021-12-15] MEDS: NICOTINE 14 MG/24 HR PATCH TD SCH (08:09)
[2021-12-15] MEDS: POTASSIUM CHLORIDE CRTAB 20 MEQ TABCR PO SCH ×2 (08:09→20:25)
[2021-12-15] MEDS: COLCHICINE 0.6 MG TAB PO SCH ×2 (08:09→20:28)
[2021-12-15] MEDS: THIAMINE HCL 100 MG TAB PO SCH (08:10)
[2021-12-15] MEDS: METOPROLOL SUCC 25MG EXT REL TAB PO SCH (08:10)
[2021-12-15] MEDS: MULTIVITAMIN TAB PO SCH (08:10)
[2021-12-15 08:42] LABS: BUN Creatinine Ratio 4.3 (10-20); Calcium 7.9 mg/dl (8.5-10.1); Creatinine Clr Calc Pharmacy 81.8 ml/min; Est GFR (Non-African American) 81.1 ml/min; Potassium 3.7 mmol/L (3.5-5.1)
--- NOTE | 2021-12-15 14:22 | Hospitalist Progress Note ---
Date of Service December 15, 2021 Assessment & Plan (1) Gangrene of right foot: Plan: -- Blood cultures: requested updated results from [facility]- to be faxed today Wound cultures: Positive for Enterococcus and Proteus --ID consulted: Recommend to continue Zosyn, then transition to Cipro plus Augmentin upon discharge x14 days total tolerating abx well Status post transmetatarsal amputation Status post wound closure -- Ornamenter Hand: patient can be d/c'd and ff up as outpatient Acute pericarditis --Pericardial effusion --Pharmacy Operations Specialist consulted -- Colchicine 0.6 mg twice daily and ibuprofen 600 mg 3 times daily ordered --Chest pain resolved hx chronic diastolic CHF (EF 60 to 65%, TTE 2018) -- Euvolemic PAF, patient NSR hypertension, stable pulmonary hypertension on TTE Ongoing alcohol abuse Chronic anemia, hemoglobin at baseline past tobacco abuse DVT prophylaxis. Lovenox subcu DNR Disposition PT OT evaluation Most likely will need to transition to inpatient rehab Admission and Anticipated Discharge Date Admission Date: December 09, 2021 Subjective ff up for r foot gangrene, etc seen resting in chair, comfortable in good spirits has some pain on the right foot, improving no chest pain, dyspnea no other symptoms Review of Systems Review of Systems: all noted and negative except for above Physical Exam Physical Exam: General- oriented x 3, not in distress, speaks in sentences with no effort or accessory muscle use Eyes- anicteric Neck- no JVD Lungs- clear BS BL Heart- normal rate, regular rhythm; no murmurs Abdomen- normal bowel sounds, nondistended, soft, nontender Extremities- no pretibial edema, no calf tenderness R foot: heavy dressing in place Neuro- alert, oriented x 3; no gross focal neurologic deficits Skin- warm & dry Results & Data Results & Data ([facility]) Vital Signs (Past 12 Hours) Vital Signs Temp Pulse Pulse Pulse Resp BP Pulse Ox 12/15/21 11:20 36.6 C 73 16 136/77 96 12/15/21 11:10 100 12/15/21 07:41 36.5 C 74 20 131/55 L 95 12/15/21 07:03 75 12/15/21 04:35 36.9 C 67 18 141/69 H 93 all noted and reviewed including below
[2021-12-15] MEDS: FUROSEMIDE 40 MG TAB PO SCH (20:27)
[2021-12-16] MEDS: PIPERACILLIN/TAZOBACTAM 3.375 GM in DEXTROSE 5% 100 ML IV SCH ×2 (05:50→14:07)
[2021-12-16 07:18] LABS: Potassium 3.7 mmol/L (3.5-5.1)
[2021-12-16 07:19] LABS: BUN Creatinine Ratio 5.3 (10-20); Creatinine Clr Calc Pharmacy 80.8 ml/min; Est GFR (African American) 91.6 ml/min
[2021-12-16] MEDS: POTASSIUM CHLORIDE CRTAB 20 MEQ TABCR PO SCH ×2 (08:50→20:03)
[2021-12-16] MEDS: COLCHICINE 0.6 MG TAB PO SCH (08:50)
[2021-12-16] MEDS: IBUPROFEN 600 MG TAB PO SCH ×3 (08:50→20:02)
[2021-12-16] MEDS: METOPROLOL SUCC 25MG EXT REL TAB PO SCH (08:51)
[2021-12-16] MEDS: THIAMINE HCL 100 MG TAB PO SCH (08:51)
[2021-12-16] MEDS: MULTIVITAMIN TAB PO SCH (08:51)
[2021-12-16] MEDS: ENOXAPARIN INJ 40 MG/0.4 ML SYR SQ SCH (08:51)
[2021-12-16] MEDS: NICOTINE 14 MG/24 HR PATCH TD SCH (08:51)
[2021-12-16] MEDS: FOLIC ACID 1 MG TAB PO SCH (08:51)
[2021-12-16] MEDS: oxyCODONE HCL IR 5 MG TAB (IMMEDIATE RELEASE) PO PRN ×2 (08:55→23:41)
[2021-12-16] MEDS: CALCIUM CARBONATE 500 MG CHEWABLE TAB PO PRN (08:55)
[2021-12-16] MEDS: LOPERAMIDE HCL 2 MG CAP PO PRN (09:04)
[2021-12-16] MEDS: AMOXICILLIN/CLAVULANATE 875 MG TAB PO SCH (16:49)
--- NOTE | 2021-12-16 17:23 | Hospitalist Progress Note ---
Date of Service December 16, 2021 Assessment & Plan (1) Gangrene of right foot: Plan: -- Blood cultures from [facility] 12/09: Proteus Wound cultures from [facility] 12/09 Enterococcus and Proteus --Blood cultures [facility]: Negative Wound drainage: Positive for Enterococcus faecalis and Proteus --ID consulted: Recommend to continue Zosyn, then transition to Cipro 500 mg p.o. twice dailyplus Augmentin 875 mg twice daily upon discharge x14 days total tolerating abx well -- Awaiting transfer to rehab Status post transmetatarsal amputation Status post wound closure -- Senior Mechanical Design Engineer: patient can be d/c'd and ff up as outpatient Acute pericarditis --Pericardial effusion --Director Plans consulted -- Colchicine 0.6 mg twice daily x3 months and ibuprofen 600 mg 3 times daily x1 month --Chest pain resolved Diarrhea C. difficile negative Check for stool PCR panel Patient reports he also has chronic diarrhea at home Will consult GI hx chronic diastolic CHF (EF 60 to 65%, TTE 2018) -- Euvolemic PAF, patient NSR hypertension, stable pulmonary hypertension on TTE Ongoing alcohol abuse Chronic anemia, hemoglobin at baseline past tobacco abuse DVT prophylaxis. Lovenox subcu DNR Disposition PT OT evaluation transition to inpatient rehab Admission and Anticipated Discharge Date Admission Date: December 09, 2021 Subjective Follow-up for right foot gangrene, bacteremia, acute pericarditis, etc. Seen resting in bedside chair, comfortable Not in distress States he feels fine overall except for having 2 loose bowel movements today Reports chronic diarrhea even at home Minimal epigastric pain this morning No chest pain, shortness of breath Right foot pain improving No other symptoms Review of Systems Review of Systems: all noted and negative except for above Physical Exam Physical Exam: General- oriented x 3, not in distress, speaks in sentences with no effort or accessory muscle use Eyes- anicteric Neck- no JVD Lungs- clear BS BL Heart- normal rate, regular rhythm; no murmurs Abdomen- normal bowel sounds, nondistended, soft, nontender Extremities- no pretibial edema, no calf tenderness Right foot: Heavy dressing in place Neuro- alert, oriented x 3; no gross focal neurologic deficits Skin- warm & dry Results & Data Results & Data ([facility]) Vital Signs (Past 12 Hours) Vital Signs Temp Pulse Pulse Pulse Resp BP BP 12/16/21 15:38 78 12/16/21 15:19 36.9 C 78 18 135/73 12/16/21 11:24 36.6 C 66 18 117/56 L 12/16/21 07:41 65 12/16/21 06:11 37 C 73 20 124/59 L Pulse Ox 12/16/21 15:38 12/16/21 15:19 94 12/16/21 11:24 99 12/16/21 07:41 12/16/21 06:11 98 all noted and reviewed including below
[2021-12-16] MEDS: ADVANCED PROBIOTIC 1250 MG CAPSULE PO SCH (18:10)
[2021-12-16] MEDS: PANTOprazole 40 MG TAB PO SCH (18:22)
[2021-12-16] MEDS: CIPROFLOXACIN 500 MG TAB PO SCH (20:02)
[2021-12-16] MEDS: FUROSEMIDE 40 MG TAB PO SCH (20:03)
[2021-12-16] MEDS ORDERED: MELATONIN 3 MG TAB PO PRN (23:09)
--- NOTE | 2021-12-17 07:24 | Orthopedic Progress Note ---
Date of Service December 17, 2021 Assessment & Plan (1) Gangrene of right foot: Plan: Patient seen, evaluated, and treated. Reviewed ID recommendation to continue Zosyn, then transition to Cipro plus Augmentin upon discharge x14 days total. Ok for DC per podiatry. I did review case / post operative care with daughter and Patient and they will follow up in office. I will continue to follow while in house. Thank you for allowing me to participate in the Patient's care. (2) Osteomyelitis of right foot: Admission and Anticipated Discharge Date Admission Date: December 09, 2021 Subjective Patient status post TMA 12/10/21 with delayed primary closure 12/12/21. He is seen at bedside with no complaints. Patient reports awaiting placement to [facility]. Review of Systems Review of Systems: Reviewed hospital notes. No changes. Physical Exam Physical Exam: Incision well co-apted. Constitutional: WD/WN, vitals as above Cardiovascular: RRR, no murmur, no edema Psychiatric: A+Ox3, euthymic affect Results & Data ([facility]) Vital Signs (Past 12 Hours) Vital Signs Temp Pulse Pulse Resp BP BP Pulse Ox 12/17/21 04:35 36.7 C 72 18 122/68 91 12/16/21 23:30 79 12/16/21 23:28 37.0 C 81 18 103/62 98 12/16/21 19:25 36.6 C 93 H 18 118/65
[2021-12-17] MEDS ORDERED: COLCHICINE 0.6 MG TAB PO SCH (09:00)
[2021-12-17] MEDS: CIPROFLOXACIN 500 MG TAB PO SCH (11:23)
[2021-12-17] MEDS: FOLIC ACID 1 MG TAB PO SCH (11:23)
[2021-12-17] MEDS: ENOXAPARIN INJ 40 MG/0.4 ML SYR SQ SCH (11:23)
[2021-12-17] MEDS: IBUPROFEN 600 MG TAB PO SCH (11:23)
[2021-12-17] MEDS: AMOXICILLIN/CLAVULANATE 875 MG TAB PO SCH (11:23)
[2021-12-17] MEDS: MULTIVITAMIN TAB PO SCH (11:24)
[2021-12-17] MEDS: NICOTINE 14 MG/24 HR PATCH TD SCH (11:24)
[2021-12-17] MEDS: PANTOprazole 40 MG TAB PO SCH (11:24)
[2021-12-17] MEDS: METOPROLOL SUCC 25MG EXT REL TAB PO SCH (11:24)
[2021-12-17] MEDS: POTASSIUM CHLORIDE CRTAB 20 MEQ TABCR PO SCH (11:24)
[2021-12-17] MEDS: THIAMINE HCL 100 MG TAB PO SCH (11:24)
[2021-12-17] MEDS: ADVANCED PROBIOTIC 1250 MG CAPSULE PO SCH (11:24)
--- NOTE | 2021-12-17 11:59 | Gastrointestinal Consultation ---
Date of Consultation December 17, 2021 Assessment & Plan (1) Chronic diarrhea: 76 y/o male with multiple co-morbids admitted with gangrene of the right foot, s/p transmetatarsal amputation. He reports chronic diarrhea for which we are consulted. Discussed broad diff dx for his symptoms. C. diff neg. On exam abd is soft, nontender. - R/o infectious etiology w/ stool culture - If that's negative, in the meantime can use Imodium PRN: can also consider fiber to help thicken the stool, or perhaps FODMAPs diet to see if there is a dietary trigger. - If symptoms persist, consider further w/u with Celiac labs, TSH, CRP, ESR, fecal elastase (r/o EPI), labs for hormone secreting tumor + abd imaging - If negative would offer colonoscopy - r/o microscopic colitis, malignancy - If that's negative, consider IBS, SIBO or functional disorder; also may be related to ETOH abuse and would recommend cutting it out completely or at least moderating it - He is welcome to establish with GI as an OP if he wishes - He seems to still have his GB; though could consider Questran or Colestipol if symptoms persist - GI will sign off, please call with questions Thank you for allowing us to participate in the care of this patient. Please call with any acute changes, questions or concerns. Please see addendum below with additional recommendation from my supervising physician. Supervising Physician Co-Signing Physician Notes Patient was discharged before I could see him. I have discussed the patient's management with the advanced practitioner. Please refer to the nurse practitioner's note for the documented findings and plan of care. Management of Chronic diarrhea is OP. History of Present Illness Reason for Consultation: persistent diarrhea Requesting Physician: Dr. Pina Attending Physician: Marcella Brown MD History of Present Illness This is a 76 y/o male with multiple co-morbids including chronic diastolic HF, PAF, HTN, chronic anemia, former tobacco abuse, ongoing ETOH abuse, admitted with gangrene of the right foot, underwent transmetatarsal amputation and is on ABX; he is awaiting DC to rehab. We are consulted for diarrhea. C diff neg; stool culture pending. Pt reports chronic diarrhea x approx 7 years and has not chnged recently. Can't recall exactly what his bowels were like before 7 years ago but states he thinks they were "normal; formed." He's never had a w/u for the diarrhea. Has 4 liquid brown BMs daily, with occasional urgency and incontinence. Denies nocturnal symptoms; no obvious triggering factors such as certain foods. If he takes Imodium (maybe once a month) he has no diarrhea x 1 day. He never has formed stools. No recent ABX; no change in meds. He drinks ETOH; approx 6-7 beers a day; used to drink more but didn't elaborate. Labs w/ chronic anemia which is stable. Tolerating a regular diet. Denies melena, hematochezia, greasy/oily/orange stools, n/v, abd pain, bloating, gas, weight loss, fever, chills. No change in appetite. Never had colonoscopy; not interested in one. Was told by his doctor that due to his heart he should not have a colonoscopy and he is not interested in one . No fam hx GI malignanc y, colitis. Allergies Allergy/AdvReac Type Severity Reaction Status Date / Time acetaminophen [From Vicodin] Allergy Hives Verified 07/26/18 17:05 hydrocodone [From Vicodin] Allergy Hives Verified 07/26/18 17:05 Home Medications Medication Instructions Recorded Confirmed Type aspirin 81 mg tablet,delayed 81 mg PO DAILY 07/26/18 12/10/21 History release furosemide 40 mg tablet 40 mg PO HS 07/26/18 12/10/21 History tramadol 50 mg tablet 50 mg PO Q6H PRN 07/26/18 12/10/21 History acetaminophen 325 mg tablet (Mapap 650 mg PO Q4H PRN #100 tab 08/01/18 12/10/21 Rx (acetaminophen)) allopurinol 300 mg tablet 300 mg DAILY 12/10/21 12/10/21 History furosemide 80 mg tablet 80 mg PO QAM 12/10/21 12/10/21 History L.acidop,casei,lactis,rham-B.lact,deepa 2 cap PO DAILY #30 cap 12/17/21 Rx 625 mg (10 billion cell) capsule (Advanced Probiotic) amoxicillin 875 mg-potassium 1 tab PO BID 13 Days #26 tab 12/17/21 Rx clavulanate 125 mg tablet ciprofloxacin HCl 500 mg tablet 500 mg PO BID 13 Days #26 tab 12/17/21 Rx colchicine 0.6 mg tablet (Colcrys) 0.6 mg PO DAILY 30 Days #30 tab 12/17/21 Rx folic acid 1 mg tablet 1 mg PO QAM #30 tab 12/17/21 Rx ibuprofen 600 mg tablet 600 mg PO TID 21 Days #63 tab 12/17/21 Rx loperamide 2 mg capsule 2 mg PO Q8H PRN #30 cap 12/17/21 Rx metoprolol succinate 25 mg 25 mg PO QAM 30 Days #30 tab 12/17/21 Rx tablet,extended release 24 hr multivitamin with folic acid 400 1 tab PO QAM #30 tab 12/17/21 Rx mcg tablet (Daily-Dre (with folic acid)) pantoprazole 40 mg tablet,delayed 40 mg PO QAM #30 tab 12/17/21 Rx release potassium chloride 10 mEq 20 meq PO BID #0 tab 12/17/21 12/10/21 Rx tablet,extended release thiamine HCl (vitamin B1) 100 mg 100 mg PO QAM #30 tab 12/17/21 Rx tablet Patient History Medical History Acute pericarditis Alcohol abuse Anemia CHF (congestive heart failure) Hypertension Obesity LIANET (obstructive sleep apnea) Pulmonary hypertension Right heart failure Surgical History No significant past surgical history Family History Other Breast cancer Lung cancer Pancreatic cancer Social History Smoking Status: Former smoker Second Hand Exposure: No; Hx Alcohol Use: Yes Alcohol type: beer Hx Substance Use: No Preferred Language: Bulgarian Communication Ability: Effective Soup Person Required: No Beliefs That Will Affect Care: None marital status: / Current Living Situation: Family Feels Safe at Home: Yes Assistive Devices: Cane Review of Systems Review of Systems: All systems reviewed & are unremarkable except as noted in HPI & below Physical Exam Constitutional: WD/WN, vitals as above chronically ill Eyes: PERRL, conjunctivae normal, anicteric sclerae Respiratory: normal respiratory effort, lungs clear to auscultation Cardiovascular: Rate/Rhythm: regular rate and regular rhythm Gastrointestinal (Abdomen): normal bowel sounds, soft, nontender, no hepatosplenomegaly Musculoskeletal: Right foot wrapped with peter bandage; no significant edema to the extremities Skin: no rashes, warm and dry Psychiatric: A+Ox3, euthymic affect Results & Data ([facility]) Vital Signs (Past 12 Hours) Vital Signs Temp Pulse Pulse Resp BP Pulse Ox 12/17/21 07:35 62 12/17/21 07:22 36.5 C 74 18 145/72 H 100 12/17/21 04:35 36.7 C 72 18 122/68 91
--- NOTE | 2021-12-17 12:27 | Discharge Summary ---
Date of Service December 17, 2021 Admission HPI Per Admitting Provider History obtained from patient and records. Patient is a fair historian. Medical history significant for Last confinement July 2018 for right-sided heart failure. Patient has had right foot swelling for about a few weeks. Prescribed unrecalled antibiotic by PCP with good response as per patient. 2 days ago, purulent drainage noted from right foot swelling wound. Worsening pain without fever or chills. Maggots noted by family on right foot which is turned black yesterday. Patient denies chest pain, SOB. Patient brought to [facility] ER. Patient transferred to [facility] for specialist evaluation. 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 Admission Exam Per Admitting Provider GENERAL: Uncomfortable, obese, slightly hard of hearing, no respiratory distress SKIN: Pallor, warm HEENT: Pale palpebral conjunctivae, no ptosis, dry buccal mucosa NECK : Supple, short neck, no tenderness CHEST : Decreased breath sounds, no tenderness HEART : RRR, no obvious murmurs ABDOMEN: distention, nontender EXTREMITIES : Dressing over right foot, minimal LE swelling NEUROLOGIC : Coherent, no facial asymmetry, hard of hearing, gait and stance not assessed Principal Diagnosis Gangrene of right foot: Status post transmetatarsal amputation Status post wound closure Acute pericarditis Pericardial effusion Diarrhea Chronic diastolic CHF (EF 60 to 65%, TTE 2019) Paroxysmal Atrial fibrillation Hypertension pulmonary hypertension Alcohol abuse Chronic anemia Discharge Exam General- No acute distress Head- atraumatic Eyes- PERRL, EOMI, ENT- oropharynx clear Neck- supple, no JVD Lungs- No wheezing Heart- regular rhythm; no murmur Abdomen- normal bowel sounds, soft, nontender Extremities- no calf tenderness Neuro- alert, oriented x 3; PERRL, EOMI; no facial palsy; no dysarthria Skin- warm & dry Discharge Data Allergies Allergy/AdvReac Type Severity Reaction Status Date / Time acetaminophen [From Vicodin] Allergy Hives Verified 07/26/18 17:05 hydrocodone [From Vicodin] Allergy Hives Verified 07/26/18 17:05 Consultations 12/10/21 04:31 Consult Cardiology Routine 12/10/21 06:39 Consult Podiatry Routine 12/11/21 09:37 Consult Infectious Diseases Routine 12/11/21 09:51 Consult Health Information Management Routine 12/14/21 08:46 Consult Health Information Management Routine 12/16/21 17:23 Consult Gastroenterology Routine Procedures Performed Operation Date: 12/10/21 09:50 Actual Procedures p Removal of nonviable bone, soft tissue of right foot - Nader Milner DPM, MS Operation Date: 12/12/21 09:00 Actual Procedures p Right Foot Delayed Primary Closure - Nader Milner DPM, MS Ordered Studies 12/10/21 00:28 US arterial duplex LE RT Urgent XR ribs BI min 2V HISTORY: 76 years-old Male rib pain r/o fracture acute bilateral chest and rib pain COMPARISON: Chest radiograph of same day TECHNIQUE: AP view of the chest with 3 views of the bilateral ribs FINDINGS: Cardiac silhouette is enlarged. Mild right hemidiaphragmatic elevation. No pneumothorax, pleural effusion, airspace consolidation or overt pulmonary edema. Arterial calcifications. Degenerative changes of the shoulders and spine. Cholecystectomy. No acute displaced rib fracture identified. IMPRESSION: 1. No acute processes of the chest. 2. No acute rib fracture identified. ACT 112: Negative or not required by law. The above report was generated using voice recognition software. It may contain grammatical, syntax or spelling errors. Electronically signed by: Richardson Melendez M.D. 12/10/2021 1:58 PM Dictated:12/10/21 1356 Transcribed: 12/10/21 1356 XR chest 1V portable CLINICAL HISTORY: cp TECHNIQUE: Single frontal radiograph of the chest was obtained. Comparison: Comparison is made to chest radiograph 07/28/2018 FINDINGS: No lines and tubes are seen. The cardiomediastinal silhouette is normal. Lungs are underinflated but clear. No evidence of pleural effusion or pneumothorax. IMPRESSION: No acute chest disease. ACT 112: Negative or not required by law. Electronically signed by: Buddy Saab M.D. 12/10/2021 8:09 AM Dictated:12/10/21 0808 Transcribed: 12/10/21 0808 US arterial duplex LE RT CLINICAL HISTORY: RLE pain TECHNIQUE: Real-time grayscale and color and spectral Doppler ultrasound imaging of the bilateral lower extremity arteries was performed. Measurements calculated based on NASCET criteria. COMPARISON: None available at the time of this dictation. FINDINGS: RIGHT: Common femoral artery: Triphasic waveforms. Peak systolic velocity (PSV) 131 cm/s. Deep femoral artery: Triphasic waveforms. PSV 88 cm/s. Superficial femoral artery: Triphasic waveforms. PSV 127 cm/s. Popliteal artery: Triphasic waveforms. PSV 92 cm/s. Anterior tibial artery: Triphasic waveforms. PSV 102 cm/s. Posterior tibial artery: Triphasic waveforms. PSV 103 cm/s. Peroneal artery: Triphasic waveforms. PSV 57 cm/s. Dorsalis pedis: Triphasic waveforms. PSV 40 cm/s. Reference ranges: Normal Ankle/Brachial Index (SONU) 1.0-1.4; 0.91-0.99 borderline; < or = 0.9 abnormal (0.7-0.89 mild, 0.51-0.69 moderate, < or = 0.5 severe peripheral arterial disease). Normal Toe/Brachial Index (TBI) > or = 0.6; < 0.6 abnormal (0.34-0.59 mild, 0.12-0.34 moderate, < or = 0.11 severe peripheral arterial disease). IMPRESSION: No hemodynamically significant stenosis. ACT 112: Negative or not required by law. Electronically signed by: Buddy Saab M.D. 12/10/2021 8:59 AM Dictated:12/10/21853 Transcribed: 12/10/21853 Hospital Course (1) Gangrene of right foot: -- Blood cultures from [facility] 12/09: Proteus [facility] Enterococcus and Proteus --Blood cultures [facility]: Negative Wound drainage: Positive for Enterococcus faecalis and Proteus --ID consulted: Recommend to continue Zosyn, then transition to Cipro 500 mg p.o. 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 difficile negative Check for stool PCR panel Patient reports he also has chronic diarrhea at home Will consult GI hx chronic diastolic CHF (EF 60 to 65%, TTE 2019) -- Euvolemic PAF, patient NSR hypertension, stable pulmonary hypertension on TTE Ongoing alcohol abuse Chronic anemia, hemoglobin at baseline past tobacco abuse DVT prophylaxis. Lovenox subcu DNR Disposition PT OT evaluation transition to inpatient rehab Total Time Total Time Spent Total Time Spent (In Minutes): 35 minutes Discharge Plan Discharge Items Patient Disposition: Transfer Inpatient Rehab Fac Reason For Visit: [facility]. [facility] Discharge Diagnosis: Gangrene of right foot: Status post transmetatarsal amputation Status post wound closure Acute pericarditis Pericardial effusion Diarrhea Chronic diastolic CHF (EF 60 to 65%, TTE 2019) Paroxysmal Atrial fibrillation Hypertension pulmonary hypertension Alcohol abuse Chronic anemia Activity: Resume your previous activity Non-emergency contact: Primary Care Provider and Surgeon Call non-emergency contact if: you have any medication questions, your symptoms worsen, your temperature is above 101, your wound has increased redness and your wound has increased drainage Follow-up/Referrals: Mj Lama MD [Primary Care Provider] - Diet: Heart Healthy Addtl Attending Provider Instructions: Follow up with your primary care provider once discharge from rehab Follow up with podiatry Dr. Milner in 1-2 weeks (Please call to schedule for the appointment ) Follow up with cardiology in 1 -2 weeks for the Pericarditis Continue daily wound care (Keep dressing clean and dry Non weight bearing on Left foot Complete the course of the antibiotic with Cipro and Augmentin Continue physical and occupational therapy Fall precaution Counseling on alcohol cessation Check BMP in 1 week to monitor your electrolytes and renal function Monitor closely for any abnormal bleeding while taking aspirin and Motrin Pending Studies at Discharge: No Stand-Alone Forms: My [employer] Skilled Items Patient informed of condition?: Yes DNR: Yes Discharge Level of Care: Acute rehab Communicable Disease: No Discharge Prognosis: Stable Lines: None Urinary Catheter: No Medications and DC Order Prescriptions: New ciprofloxacin HCl 500 mg Tablet 500 mg PO BID 13 Days Qty: 26 RF: 0 metoprolol succinate 25 mg Tablet Extended Release 24 Hr 25 mg PO QAM 30 Days Qty: 30 RF: 0 Advanced Probiotic 625 mg (10 billion cell) Capsule 2 cap PO DAILY Qty: 30 RF: 0 folic acid 1 mg Tablet 1 mg PO QAM Qty: 30 RF: 0 colchicine [Colcrys] 0.6 mg Tablet 0.6 mg PO DAILY 30 Days Qty: 30 RF: 0 thiamine HCl (vitamin B1) 100 mg Tablet 100 mg PO QAM Qty: 30 RF: 0 multivitamin with folic acid [Daily-Dre (with folic acid)] 400 mcg Tablet 1 tab PO QAM Qty: 30 RF: 0 ibuprofen 600 mg Tablet 600 mg PO TID 21 Days Qty: 63 RF: 0 amoxicillin-pot clavulanate 875-125 mg tablet 1 tab PO BID 13 Days Qty: 26 RF: 0 loperamide 2 mg Capsule 2 mg PO Q8H PRN (Reason: diarrhea) Qty: 30 RF: 0 pantoprazole 40 mg Tablet,Delayed Release (Dr/Ec) 40 mg PO QAM Qty: 30 RF: 0 Continued furosemide 40 mg tablet 40 mg PO HS RF: 0 aspirin 81 mg Tablet,Delayed Release (Dr/Ec) 81 mg PO DAILY RF: 0 tramadol 50 mg tablet 50 mg PO Q6H PRN (Reason: Pain) RF: 0 acetaminophen [Mapap (acetaminophen)] 325 mg Tablet 650 mg PO Q4H PRN (Reason: fever or pain) Qty: 100 RF: 0 allopurinol 300 mg tablet 300 mg DAILY RF: 0 furosemide 80 mg Tablet 80 mg PO QAM RF: 0 Changed potassium chloride 10 mEq tablet extended release 20 meq PO BID Qty: 0 RF: 0 Discontinued metoprolol succinate 25 mg Tablet Extended Release 24 Hr 12.5 mg PO BID Qty: 30 RF: 0 Discharge Orders: Discharge Order (Routine); Ordered 12/17/21 Ordered By: Marcella Brown Admission Data Admit Date/Time: 12/09/21 23:27 Attending Provider: Marcella Brown Admit Provider: Antony Szymanski Primary Care Provider: Mj Lama Other Providers: Antony Szymanski ; Marcos Moran ; Navneet Cooper ; Nate Rebolledo ; Jose Guadalupe Alcantar ; Yohan Arce ; Richard Bonilla ; Natali Borjas ; Tamiko Mesa ; Jaida Xiong ; Sohail Stuart ; Nader Milner ; Stanley Smart ; Vic Sanderson ; Malick Snow I. ; Rivas Yip II ; Rachel Ball ; Richard Lazar ; Hiro Wells. ; [facility] ; Raiza Sykes ; Jose Armando Pina Other Interventions: Discharge Summary Assessment (RN) Last Done: 12/17/21 12:30
[2021-12-17] MEDS: oxyCODONE HCL IR 5 MG TAB (IMMEDIATE RELEASE) PO PRN (12:48)
== END 2021-12-17 13:25 | DRG 240 ==
LOC: 2W 20:47 → SUATTDRO 23:27

== ENCOUNTER 2022-07-30 16:33 | Inpatient (IN) ==
--- NOTE | 2022-07-30 17:15 | Emergency Department Note ---
History of Present Illness General Chief complaint: Foot Injury/Pain Stated complaint: REF BY Ayala ASH FOOT PAIN Time Seen by Provider: 07/30/22 16:59 History of Present Illness Maximum Pain Intensity: 9 This is a 77-year-old male that presents to the emergency department via private vehicle referred by Dr. Milner of podiatry with complaints of "left foot pain". The patient notes that he has been experiencing left foot pain for some time now and follows closely with Dr. Milner. Patient notes that he had his follow-up today for a wound he has been experiencing to the left lateral foot region. He notes that he was referred here today for potential admission noting ongoing discomfort and worsening signs of infection despite antibiotic course. I did discuss the case with the patient's established manager user interface, Dr. Milner. Patient recently started on oral cephalexin based on wound cultures from the left foot. At this time we will proceed with testing here in the emergency department with likely inpatient management for further evaluation and treatment of his left foot. Home Medications Medication Instructions Recorded Confirmed Type aspirin 81 mg tablet,delayed 81 mg PO QAM 07/26/18 07/30/22 History release furosemide 40 mg tablet 40 mg PO HS 07/26/18 07/30/22 History tramadol 50 mg tablet 50 mg PO Q6H PRN Pain 07/26/18 07/30/22 History acetaminophen 325 mg tablet (Mapap 650 mg PO Q4H PRN fever or pain 08/01/18 07/30/22 Rx (acetaminophen)) #100 tabs allopurinol 300 mg tablet 300 mg PO BID 12/10/21 07/30/22 History loperamide 2 mg capsule 2 mg PO Q8H PRN diarrhea #30 caps 12/17/21 07/30/22 Rx potassium chloride 10 mEq 20 meq PO BID #0 tabs 12/17/21 07/30/22 Rx tablet,extended release thiamine HCl (vitamin B1) 100 mg 100 mg PO QAM #30 tabs 12/17/21 07/30/22 Rx tablet cephalexin 500 mg capsule 500 mg PO TID 07/30/22 07/30/22 History cholecalciferol (vitamin D3) 25 25 mcg PO QAM 07/30/22 07/30/22 History mcg (1,000 unit) tablet (Vitamin D3) furosemide 40 mg tablet 80 mg PO QAM 07/30/22 07/30/22 History metoprolol succinate 25 mg 25 mg PO QAM 07/30/22 07/30/22 History tablet,extended release 24 hr pantoprazole 40 mg tablet,delayed 40 mg PO QAM PRN Heartburn 07/30/22 07/30/22 History release vit A 7,160 unit-vit C 113 mg-vit 1 tab PO QAM 07/30/22 07/30/22 History E 100 [id number] tablet Allergies Allergy/AdvReac Type Severity Reaction Status Date / Time gabapentin Allergy Severe swelling Verified 07/30/22 20:01 all over hydrocodone [From Vicodin] Allergy Intermediate Hives Verified 07/30/22 20:01 acetaminophen [From Vicodin] Allergy Unknown Hives Verified 07/30/22 20:01 fish derived Allergy Unknown Unknown Verified 07/31/22 11:47 shellfish derived Allergy Unknown Unknown Verified 07/31/22 11:47 strawberry Allergy Unknown Hives Verified 07/31/22 11:46 Past Med/Surg History Medical History Acute pericarditis Alcohol abuse Alcohol abuse Anemia Chest pain CHF (congestive heart failure) Gangrene of right foot Hypertension Obesity LIANET (obstructive sleep apnea) Osteomyelitis of right foot Pericardial effusion Preop cardiovascular exam Pulmonary hypertension Right heart failure Surgical History No significant past surgical history Family History Other Breast cancer Lung cancer Pancreatic cancer Social History Smoking Status: Former smoker Tobacco Type: Smokeless Tobacco (Dip or Chew) Second Hand Exposure: No; Do You Dip or Chew Tobacco: Yes; Tobacco Cessation Education Requested by Patient: No Hx Alcohol Use: Yes Alcohol type: beer Hx Substance Use: No Preferred Language: Serbian Communication Ability: Effective Chemical Dependency Therapist Required: No Beliefs That Will Affect Care: None marital status: / Current Living Situation: Family Other Information That Helps Us Care for You: No Feels Safe at Home: Yes Safety Concerns: Feels Safe At This Time Assistive Devices: Walker and Wheelchair Review of Systems A total of 10 systems reviewed and were otherwise negative Physical Exam Vital Signs Vital Signs - 24 hr 07/30/22 16:38 07/30/22 19:22 07/30/22 21:13 Temperature 36.9 C Temperature Source Temporal Artery Scan Pulse Rate 72 Pulse Rate [Apical] 68 68 Respiratory Rate 18 16 16 Respiratory Depth Normal Blood Pressure 164/76 H Blood Pressure [Right Arm] 165/78 H 159/58 H Blood Pressure Mean 105 Blood Pressure Mean [Right Arm] 107 91 Blood Pressure Position Sitting Pulse Oximetry 99 96 Oxygen Delivery Method Room Air Room Air Sepsis Recent Fever Within 48 Hours No Sepsis New/Unexplained Change in Mental Status Yes Sepsis Action Taken by Nursing No Action Required 07/30/22 22:00 07/30/22 22:34 Temperature Temperature Source Pulse Rate Pulse Rate [Apical] 69 74 Respiratory Rate 16 16 Respiratory Depth Blood Pressure Blood Pressure [Right Arm] 115/63 125/52 L Blood Pressure Mean Blood Pressure Mean [Right Arm] 80 76 Blood Pressure Position Pulse Oximetry 96 94 Oxygen Delivery Method Room Air Room Air Sepsis Recent Fever Within 48 Hours Sepsis New/Unexplained Change in Mental Status Sepsis Action Taken by Nursing VITAL SIGNS - Vital signs and nursing notes were reviewed. Stable and afebrile. GENERAL -77-year-old male appearing his stated age who is in no acute distress. Communicates well with provider and answers questions appropriately. SKIN -left foot is in a gauze wrap/bandage. Once this was removed left foot was inspected. 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 Ulcerative type wound present to the left lateral fifth MTP joint soft tissues. There is a yellowish- white discharge from this region. Surrounding erythema present. Patient also has several other nodular-like structures overlying joint the aspects of his body consistent with gouty tophi. HEAD - NC/AT. EYES - Sclera anicteric. EARS - No deformities of external structures noted on gross examination bilaterally. NOSE - Midline and without cyanosis. No epistaxis or purulent drainage noted. MOUTH/OROPHARYNX - Without perioral cyanosis. NECK - No nuchal rigidity. LUNGS -clear to auscultation. CARDIAC -regular rate and rhythm. EXTREMITIES - No clubbing or peripheral cyanosis. Skin as above. 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 Left separator tender throughout the distal aspects. Good cap refill of the left foot. +5/5 strength noted in UE/LE bilaterally. PSYCH - A&O, and cooperates fully with examiner. Pt is very pleasant and interacts well with examiner. Course Administered Medications Acetaminophen (Acetaminophen 325 Mg Tab) 650 mg PO Q4H PRN PRN Reason: pain/fever Stop: 08/30/22 01:03 Last Admin: 07/31/22 06:22 Dose: 650 mg Documented By: IRIS Allopurinol (Allopurinol 300 Mg Tab) 300 mg PO BID [facility] Stop: 08/30/22 08:59 Last Admin: 07/31/22 08:16 Dose: 300 mg Documented By: SAMARA Doxycycline Hyclate (Doxycycline Hyclate 100 Mg Cap) 100 mg PO BID [facility] Stop: 08/07/22 08:59 Last Admin: 07/31/22 08:17 Dose: 100 mg Documented By: SAMARA Folic Acid (Folic Acid 1 Mg Tab) [facility] [place] Stop: 08/30/22 08:59 Last Admin: 07/31/22 08:16 Dose: 1 mg Documented By: SAMARA Lactated Ringer's (Lr) 1,000 mls @ 60 mls/hr IV .[id number] ONE Stop: 07/31/22 12:49 Last Admin: 07/30/22 21:12 Dose: 60 mls/hr Documented By: ALEXANDRO Cefepime HCl 2,000 mg/ Syringe 20 mls @ 5 mls/min IV Q12H [facility]; Protocol Stop: 08/07/22 07:59 Last Admin: 07/31/22 08:15 Dose: 5 mls/min Documented By: SAMARA Metoprolol Succinate (Metoprolol Succ 25mg Ext Rel Tab) 25 mg PO [facility] Stop: 08/30/22 08:59 Last Admin: 07/31/22 08:16 Dose: 25 mg Documented By: SAMARA Multivitamins (Multivitamin Tab) 1 tab PO [facility] Stop: 08/30/22 08:59 Last Admin: 07/31/22 08:17 Dose: 1 tab Documented By: SAMARA Oxycodone HCl (Oxycodone Hcl Ir 5 Mg Tab (Immediate Release)) 5 mg PO Q4H PRN PRN Reason: Pain Stop: 08/14/22 01:03 Last Admin: 07/31/22 04:26 Dose: 5 mg Documented By: IRIS Thiamine HCl (Thiamine Hcl 100 Mg Tab) 100 mg PO QAM [facility] Stop: 08/30/22 08:59 Last Admin: 07/31/22 08:17 Dose: 100 mg Documented By: SAMARA Discontinued Medications Cefepime HCl (Maxipime) 2,000 mg in 20 mls @ 5 mls/min IV NOW STA; Protocol Stop: 07/30/22 19:27 Last Admin: 07/30/22 20:18 Dose: 5 mls/min Documented By: ALEXANDRO Daptomycin 450 mg/ Syringe 9 mls @ 4.5 mls/min IV ONE STA; Protocol Stop: 07/30/22 21:20 Last Admin: 07/30/22 21:53 Dose: 4.5 mls/min Documented By: ALEXANDRO Ioversol (Optiray 350 100ml) 87 ml IV ONCE ONE Stop: 07/30/22 21:19 Last Admin: 07/30/22 21:18 Dose: 87 ml Documented By: ALEXANDRU Oxycodone HCl (Oxycodone Hcl Ir 5 Mg Tab (Immediate Release)) 5 mg PO NOW STA Stop: 07/31/22 00:20 Last Admin: 07/31/22 00:25 Dose: 5 mg Documented By: ALEXANDRO Medical Decision Making Laboratory Data 07/30/22 18:31 07/30/22 18:31 Lab Results 07/30/22 07/30/22 07/30/22 Range/Units 18:31 18:31 18:31 WBC 7.27 (4.8-10.8) K/ul RBC 5.08 (4.70-6.10) M/uL Hgb 13.6 L (14.0-18.0) g/dl Hct 42.4 (42.0-52.0) % MCV 83.5 (80.0-100.0) fL MCH 26.8 (25.0-34.0) pg MCHC 32.1 (32.0-36.0) g/dL RDW Std Deviation 44.5 (36.4-46.3) fL RDW Coeff of Brooks 14.7 H (11.5-14.5) % Plt Count 161 (130-400) K/uL MPV 10.8 (9.4-12.4) fL Immature Gran % (Auto) 0.1 % Neut % (Auto) 62.7 % Lymph % (Auto) 24.9 % Alexander % (Auto) 6.2 % Eos % (Auto) 5.0 % Baso % (Auto) 1.1 % Neut # (Auto) 4.56 (1.40-6.50) K/uL Lymph # (Auto) 1.81 (1.2-3.4) K/uL Alexander # (Auto) 0.45 (0.11-0.59) K/uL Eos # (Auto) 0.36 (0-0.50) K/uL Baso # (Auto) 0.08 (0-0.2) K/uL Immature Gran # (Auto) 0.01 (0.01-0.20) K/uL ESR 19 (0-20) mm/hr Sodium 140 (136-145) mmol/L Potassium 3.5 (3.5-5.1) mmol/L Chloride 101 (98-107) mmol/L Carbon Dioxide 33 H (21-32) mmol/L Anion Gap 6 (3-11) BUN 14 (6-23) mg/dl Creatinine 1.31 (0.6-1.4) mg/dl Est Cr Clr Drug Dosing Not Reportable Est GFR ( Amer) 60.9 ml/min Est GFR (Non-Af Amer) 52.5 ml/min BUN/Creatinine Ratio 10.7 (10-20) Glucose 96 (70-99(Fasting)) mg/dl Lactate (0.4-2.0) mmol/L Uric Acid 5.9 (2.6-7.2) mg/dl Calcium 10.1 (8.5-10.1) mg/dl Total Bilirubin 0.7 (0.2-1.0) mg/dl AST 20 (13-39) U/L ALT 10 (7-52) U/L Alkaline Phosphatase 83 (34-104) U/L C-Reactive Protein 0.52 H (0-0.5) mg/dl Total Protein 6.5 (6.0-8.3) gm/dl Albumin 3.9 (3.4-5.0) gm/dl Globulin 2.6 (2.5-4.0) gm/dl Albumin/Globulin Ratio 1.5 (0.9-2) SARS-CoV-2, RNA, NAAT (NEGATIVE) 07/30/22 07/30/22 Range/Units 19:05 19:20 WBC (4.8-10.8) K/ul RBC (4.70-6.10) M/uL Hgb (14.0-18.0) g/dl Hct (42.0-52.0) % MCV (80.0-100.0) fL MCH (25.0-34.0) pg MCHC (32.0-36.0) g/dL RDW Std Deviation (36.4-46.3) fL RDW Coeff of Brooks (11.5-14.5) % Plt Count (130-400) K/uL MPV (9.4-12.4) fL Immature Gran % (Auto) % Neut % (Auto) % Lymph % (Auto) % Alexander % (Auto) % Eos % (Auto) % Baso % (Auto) % Neut # (Auto) (1.40-6.50) K/uL Lymph # (Auto) (1.2-3.4) K/uL Alexander # (Auto) (0.11-0.59) K/uL Eos # (Auto) (0-0.50) K/uL Baso # (Auto) (0-0.2) K/uL Immature Gran # (Auto) (0.01-0.20) K/uL ESR (0-20) mm/hr Sodium (136-145) mmol/L Potassium (3.5-5.1) mmol/L Chloride (98-107) mmol/L Carbon Dioxide (21-32) mmol/L Anion Gap (3-11) BUN (6-23) mg/dl Creatinine (0.6-1.4) mg/dl Est Cr Clr Drug Dosing Est GFR ( Amer) ml/min Est GFR (Non-Af Amer) ml/min BUN/Creatinine Ratio (10-20) Glucose (70-99(Fasting)) mg/dl Lactate 1.4 (0.4-2.0) mmol/L Uric Acid (2.6-7.2) mg/dl Calcium (8.5-10.1) mg/dl Total Bilirubin (0.2-1.0) mg/dl AST (13-39) U/L ALT (7-52) U/L Alkaline Phosphatase (34-104) U/L C-Reactive Protein (0-0.5) mg/dl Total Protein (6.0-8.3) gm/dl Albumin (3.4-5.0) gm/dl Globulin (2.5-4.0) gm/dl Albumin/Globulin Ratio (0.9-2) SARS-CoV-2, RNA, NAAT NEGATIVE (NEGATIVE) Imaging Data Radiologist's Impression: Foot CT 07/30/22 19:24 CT foot LT w con HISTORY: 77 years-old Male L foot pain, infection, osteomyelitis concern chronic left foot pain with clinical concern for osteomyelitis COMPARISON: None TECHNIQUE: Multiple axial CT images of the left foot were obtained following the intravenous administration of 87 mL Optiray 350. A dose lowering technique was used consistent with the principals of ANCA. FINDINGS: There is diffuse atrophy of the musculature. Arterial calcifications. There are prominent nonspecific amorphous soft tissue calcifications throughout the soft tissues of the foot, notably within the periventricular distributions surrounding the first and fifth metatarsophalangeal joints, ankle and midfoot. Mild to moderate subcutaneous edema, most pronounced dorsally. No abscess identified. Ligaments and tendons are suboptimally evaluated by CT technique. 11 mm ulcer lateral to the fifth MTP joint. Prominent subcortical cystic changes within the midfoot, most pronounced in the cuneiforms and bases of the metatarsals with multifocal periarticular/marginal erosions also involving the first metatarsal head. Findings suggestive of a healed chronic fracture of the fifth metatarsal head. No large erosions of the fifth metatarsal head to suggest acute osteomyelitis. Soft tissue calcifications within the distal Achilles tendon. IMPRESSION: 1. Small ulcer lateral to the fifth MTP joint. No underlying bony destruction to suggest acute osteomyelitis. 2. No abscess. 3. Numerous marginal/periarticular erosions, some of which demonstrate sclerotic overhanging margins suggestive of gout arthropathy with numerous soft tissue periarticular calcifications likely indicating tophi. This finding was called/faxed to the floor at time dictation. ACT 112: Negative or not required by law. The above report was generated using voice recognition software. It may contain grammatical, syntax or spelling errors. Electronically signed by: Richardson Melendez M.D. 07/31/2022 7:[address] LEFT FOOT: No fracture or dislocation identified on this exam. There is diffuse soft tissue prominence about the mid foot and first MTP joint without defined fluid collection to suggest an abscess. No erosive or destructive changes seen in this region either to suggest osteomyelitis Radiologist: Elvis De La oTrre MD Study ready at 21:37 and initial results transmitted at 21:43 MDM Narrative Patient was seen and evaluated as above initially in an area of the waiting room followed by formal evaluation in room C5. Review was performed of triage nursing notes and vital signs. After obtaining a thorough history and physical examination the above work up was performed. Patient presents to us today for evaluation of ongoing left foot pain and a wound to the left lateral fifth metatarsal region. He was referred here today by his established manager user interface. Patient overall well-appearing and nontoxic but certainly does have a wound to the left lateral foot with surrounding evidence of infection. Options of care were discussed with the patient. I also discussed plan of care with his manager user interface, Dr. Milner. At this time we will proceed with testing here in the emergency department that also will include a CT scan of the left foot. I would then proceed with medical admission for the patient with then podiatry consult here with potential surgical intervention depending on clinical course. Patient amenable and happy with this plan. Labs reveal no leukocytosis. Mild anemia noted with hemoglobin improved compared to previous. Metabolic panel without evidence of emergent kidney or liver failure. CRP mildly elevated. ESR within normal range. COVID testing negative. CT scan of the foot per stat read does reveal no fracture or dislocation but there is some diffuse soft tissue prominence about the midfoot and first MTP per their report however I will note that clinically the patient's area of concern today is the left fifth MTP. I did order empiric antibiotics for the patient. IV cefepime was ordered. Case then discussed with the hospitalist service. Please refer to further documentation regarding his stay. Patient amenable to plan of care. In the evaluation and treatment of this patient the following differential diagnoses were entertained: Fracture, dislocation, subluxation, contusion, sprain, strain, osteomyelitis, gout, among others. Impression & Plan Infection of left foot, Foot pain, left, Open wound of left foot Discharge Plan Visit Data Chief Complaint: Foot Injury/Pain Stated Complaint: REF BY Ayala ASH FOOT PAIN ED Provider: Lyle Kunz ED Midlevel Provider: Bamat,Sudhir W Discharge Problem: Infection of left foot, Foot pain, left, Open wound of left foot Patient Disposition: Admitted As Inpatient Condition: Good Discharge Instructions Interventions: ED Discharge Assessment Last Done: 07/31/22 00:50
[2022-07-30 18:47] LABS: Basophils # (auto) 0.08 K/uL (0-0.2); Basophils % (auto) 1.1 %; Eosinophils # (auto) 0.36 K/uL (0-0.50); Hematocrit (blood only) 42.4 % (42.0-52.0); Hemoglobin 13.6 g/dl (14.0-18.0); Immature Granulocytes # (auto) 0.01 K/uL (0.01-0.20); Immature Granulocytes % (auto) 0.1 %; Lymphocytes # (auto) 1.81 K/uL (1.2-3.4); Lymphocytes % (auto) 24.9 %; Mean Corpuscular Hemoglobin 26.8 pg (25.0-34.0); Mean Corpuscular Hgb Conc 32.1 g/dL (32.0-36.0); Mean Corpuscular Volume 83.5 fL (80.0-100.0); Mean Platelet Volume 10.8 fL (9.4-12.4); Monocytes # (auto) 0.45 K/uL (0.11-0.59); Monocytes % (auto) 6.2 %; Neutrophils # (auto) 4.56 K/uL (1.40-6.50); Neutrophils % (auto) 62.7 %; Platelet Count 161 K/uL (130-400); RDW Coefficient of Variation 14.7 % (11.5-14.5); RDW Standard Deviation 44.5 fL (36.4-46.3); Red Blood Count 5.08 M/uL (4.70-6.10); White Blood Count 7.27 K/ul (4.8-10.8)
[2022-07-30 19:10] LABS: Alanine Aminotransferase 10 U/L (7-52); Albumin Globulin Ratio 1.5 (0.9-2); Albumin Level 3.9 gm/dl (3.4-5.0); Alkaline Phosphatase 83 U/L (34-104); Anion Gap 6 (3-11); Aspartate Aminotransferase 20 U/L (13-39); BUN Creatinine Ratio 10.7 (10-20); Bilirubin,Total 0.7 mg/dl (0.2-1.0); Blood Urea Nitrogen 14 mg/dl (6-23); C Reactive Protein 0.52 mg/dl (0-0.5); Calcium 10.1 mg/dl (8.5-10.1); Carbon Dioxide 33 mmol/L (21-32); Chloride 101 mmol/L (98-107); Est GFR (African American) 60.9 ml/min; Est GFR (Non-African American) 52.5 ml/min; Globulin 2.6 gm/dl (2.5-4.0); Glucose 96 mg/dl (70-99(Fasting)); Potassium 3.5 mmol/L (3.5-5.1); Sodium 140 mmol/L (136-145); Total Protein 6.5 gm/dl (6.0-8.3); Uric Acid 5.9 mg/dl (2.6-7.2)
[2022-07-30] MEDS ORDERED: CEFEPIME 2,000 MG/20 ML VIAL IV STA (19:24)
[2022-07-30] MEDS ORDERED: LACTATED RINGER'S 1,000 ML IV ONE (20:10)
[2022-07-30] MEDS ORDERED: OPTIRAY 350 100ml IV ONE (21:18)
[2022-07-30] MEDS ORDERED: DAPTOmycin 450 MG in SYRINGE 0 ML IV STA (21:19)
--- NOTE | 2022-07-30 22:18 | History & Physical Report ---
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 Milner.) DT precautions, CARLOS S if with signs of alcohol withdrawal Outpatient Rheumatology visit for patient's chronic tophaceous gout DVT prophylaxis. Lovenox subcu DNR Patient daughter requests for updates on plan of care. Ms. Digna Ojeda, contact #[phone]. Text document was generated using [employer] voice recognition software. It may contain grammatical or spelling errors. Kindly contact undersigned for clarification of any documentation item in question. History of Present Illness Chief Complaint: Left foot infection Primary Care Provider: Dr. Cristobal History obtained from patient, family, and records. Medical history significant for chronic diastolic CHF (EF 60 to 65%, TTE 2021), pulmonary hypertension, PAF, hypertension, hyperlipidemia, gout, chronic anemia (baseline hemoglobin of 12 ), alcohol abuse as per records, past tobacco abuse. Last confinement November 2021 for right foot gangrene status post surgery. Last week, patient noted gouty bumps on his left foot which led to wounds with some drainage. Increased pain and swelling. No fever, no chills, no chest pain, no SOB. Patient seen at brush stainer's office today. Patient directed to ER for possible bone infection. Cefepime administered at the ER. 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 Allergies Allergy/AdvReac Type Severity Reaction Status Date / Time gabapentin Allergy Severe swelling Verified 07/30/22 20:01 all over hydrocodone [From Vicodin] Allergy Intermediate Hives Verified 07/30/22 20:01 acetaminophen [From Vicodin] Allergy Unknown Hives Verified 07/30/22 20:01 Home Medications Medication Instructions Recorded Confirmed Type aspirin 81 mg tablet,delayed 81 mg PO QAM 07/26/18 07/30/22 History release furosemide 40 mg tablet 40 mg PO HS 07/26/18 07/30/22 History tramadol 50 mg tablet 50 mg PO Q6H PRN Pain 07/26/18 07/30/22 History acetaminophen 325 mg tablet (Mapap 650 mg PO Q4H PRN fever or pain 08/01/18 07/30/22 Rx (acetaminophen)) #100 tabs allopurinol 300 mg tablet 300 mg PO BID 12/10/21 07/30/22 History loperamide 2 mg capsule 2 mg PO Q8H PRN diarrhea #30 caps 12/17/21 07/30/22 Rx potassium chloride 10 mEq 20 meq PO BID #0 tabs 12/17/21 07/30/22 Rx tablet,extended release thiamine HCl (vitamin B1) 100 mg 100 mg PO QAM #30 tabs 12/17/21 07/30/22 Rx tablet cephalexin 500 mg capsule 500 mg PO TID 07/30/22 07/30/22 History cholecalciferol (vitamin D3) 25 25 mcg PO QAM 07/30/22 07/30/22 History mcg (1,000 unit) tablet (Vitamin D3) furosemide 40 mg tablet 80 mg PO QAM 07/30/22 07/30/22 History metoprolol succinate 25 mg 25 mg PO QAM 07/30/22 07/30/22 History tablet,extended release 24 hr pantoprazole 40 mg tablet,delayed 40 mg PO QAM PRN Heartburn 07/30/22 07/30/22 History release vit A 7,160 unit-vit C 113 mg-vit 1 tab PO QAM 07/30/22 07/30/22 History E 100 erix-kyel-xqvxzu tablet Past Med/Surg History Medical History Acute pericarditis Alcohol abuse Anemia CHF (congestive heart failure) Hypertension Obesity LIANET (obstructive sleep apnea) Pulmonary hypertension Right heart failure Surgical History No significant past surgical history Family History Other Breast cancer Lung cancer Pancreatic cancer Social History Smoking Status: Former smoker Tobacco Type: Smokeless Tobacco (Dip or Chew) Second Hand Exposure: No; Do You Dip or Chew Tobacco: Yes; Tobacco Cessation Education Requested by Patient: No Hx Alcohol Use: Yes Alcohol type: beer Hx Substance Use: No Preferred Language: Romanian Communication Ability: Effective 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 Beliefs That Will Affect Care: None marital status: / Current Living Situation: Family Other Information That Helps Us Care for You: No Feels Safe at Home: Yes Safety Concerns: Feels Safe At This Time Assistive Devices: Walker and Wheelchair Review of Systems Review of Systems: As per HPI, all other systems reviewed and negative Physical Exam Physical Exam: GENERAL: Slightly uncomfortable, slightly hard of hearing, no respiratory distress SKIN: Pallor, warm HEENT: Pale palpebral conjunctivae, no ptosis, dry buccal mucosa NECK : Supple, short neck, no tenderness CHEST : Decreased breath sounds, no tenderness HEART : RRR, no obvious murmurs ABDOMEN: distention, nontender EXTREMITIES : Gouty tophi noted on both elbows, minimal LE swelling, no tenderness, amputation stump right forefoot, dressing over tender left foot NEUROLOGIC : Coherent, no facial asymmetry, mild hearing impairment, no other gross focality Results & Data Results & Data ([facility]) Vital Signs (Past 12 Hours) Vital Signs Temp Pulse Pulse Resp BP BP Pulse Ox 07/30/22 22:00 69 16 115/63 96 07/30/22 21:13 68 16 159/58 H 96 07/30/22 19:22 68 16 165/78 H 99 07/30/22 16:38 36.9 C 72 18 164/76 H O2 Del Method 07/30/22 22:00 Room Air 07/30/22 21:13 Room Air 07/30/22 19:22 Room Air 07/30/22 16:38 Laboratory Results Laboratory Results WBC 7.27 K/ul (4.8-10.8) 07/30/22 18:31 RBC 5.08 M/uL (4.70-6.10) 07/30/22 18:31 Hgb 13.6 g/dl (14.0-18.0) L 07/30/22: Hct 42.4 % (42.0-52.0) 07/30/22: MCV 83.5 fL (80.0-100.0) 07/30/22: MCH 26.8 pg (25.0-34.0) 07/30/22: MCHC 32.1 g/dL (32.0-36.0) 07/30/22: RDW Std Deviation 44.5 fL (36.4-46.3) 07/30/22: RDW Coeff of Brooks 14.7 % (11.5-14.5) H 07/30/22: Plt Count 161 K/uL (130-400) 07/30/22: MPV 10.8 fL (9.4-12.4) 07/30/22: Immature Gran % (Auto) 0.1 % 07/30/22: Neut % (Auto) 62.7 % 07/30/22: Lymph % (Auto) 24.9 % 07/30/22: Archer % (Auto) 6.2 % 07/30/22: Eos % (Auto) 5.0 % 07/30/22: Baso % (Auto) 1.1 % 07/30/22: Neut # (Auto) 4.56 K/uL (1.40-6.50) 07/30/22: Lymph # (Auto) 1.81 K/uL (1.2-3.4) 07/30/22: Archer # (Auto) 0.45 K/uL (0.11-0.59) 07/30/22: Eos # (Auto) 0.36 K/uL (0-0.50) 07/30/22: Baso # (Auto) 0.08 K/uL (0-0.2) 07/30/22: Immature Gran # (Auto) 0.01 K/uL (0.01-0.20) 07/30/22: ESR 19 mm/hr (0-20) 07/30/22: Sodium 140 mmol/L (136-145) 07/30/22 18:31 Potassium 3.5 mmol/L (3.5-5.1) 07/30/22 18:31 Chloride 101 mmol/L (98-107) 07/30/22 18:31 Carbon Dioxide 33 mmol/L (21-32) H 07/30/22 18:31 Anion Gap 6 (3-11) 07/30/22 18:31 BUN 14 mg/dl (6-23) 07/30/22 18:31 Creatinine 1.31 mg/dl (0.6-1.4) 07/30/22 18:31 Est Cr Clr Drug Dosing Not Reportable 07/30/22 18:31 Est GFR ( Amer) 60.9 ml/min 07/30/22 18:31 Est GFR (Non-Af Amer) 52.5 ml/min 07/30/22 18:31 BUN/Creatinine Ratio 10.7 (10-20) 07/30/22 18:31 Glucose 96 mg/dl (70-99(Fasting)) 07/30/22 18:31 Lactate 1.4 mmol/L (0.4-2.0) 07/30/22 19:20 Uric Acid 5.9 mg/dl (2.6-7.2) 07/30/22 18:31 Calcium 10.1 mg/dl (8.5-10.1) 07/30/22 18:31 Total Bilirubin 0.7 mg/dl (0.2-1.0) 07/30/22 18:31 AST 20 U/L (13-39) 07/30/22 18:31 ALT 10 U/L (7-52) 07/30/22 18:31 Alkaline Phosphatase 83 U/L (34-104) 07/30/22 18:31 C-Reactive Protein 0.52 mg/dl (0-0.5) H 07/30/22 18:31 Total Protein 6.5 gm/dl (6.0-8.3) 07/30/22 18:31 Albumin 3.9 gm/dl (3.4-5.0) 07/30/22 18:31 Globulin 2.6 gm/dl (2.5-4.0) 07/30/22 18:31 Albumin/Globulin Ratio 1.5 (0.9-2) 07/30/22 18:31 SARS-CoV-2, RNA, NAAT NEGATIVE (NEGATIVE) 07/30/22 19:[address] left foot initial read: No fracture or dislocation identified on this exam. There is diffuse soft tissue prominence about the mid foot and first MTP joint without defined fluid collection to suggest an abscess. No erosive or destructive changes seen in this region either to suggest osteomyelitis
[2022-07-31] MEDS ORDERED: oxyCODONE HCL IR 5 MG TAB (IMMEDIATE RELEASE) PO STA (00:19)
[2022-07-31] MEDS ORDERED: PANTOprazole 40 MG TAB PO PRN (01:04)
[2022-07-31] MEDS ORDERED: ACETAMINOPHEN 325 MG TAB PO PRN (01:04)
[2022-07-31] MEDS ORDERED: LORazepam 0.5 MG TAB PO PRN (01:04)
[2022-07-31] MEDS: oxyCODONE HCL IR 5 MG TAB (IMMEDIATE RELEASE) PO PRN ×2 (04:26→19:56)
[2022-07-31] MEDS: ACETAMINOPHEN 325 MG TAB PO PRN ×2 (06:22→19:56)
--- NOTE | 2022-07-31 07:49 | CT Scan Report ---
CT foot LT w con HISTORY: 77 years-old Male L foot pain, infection, osteomyelitis concern chronic left foot pain with clinical concern for osteomyelitis COMPARISON: None TECHNIQUE: Multiple axial CT images of the left foot were obtained following the intravenous administ ration of 87 mL Optiray 350. A dose lowering technique was used consistent with the principals of ALA RA. FINDINGS: There is diffuse atrophy of the musculature. Arterial calcifications. There are prominent nonspecific amorphous soft tissue calcifications throughout the soft tissues of the foot, notably within the per iventricular distributions surrounding the first and fifth metatarsophalangeal joints, ankle and midf oot. Mild to moderate subcutaneous edema, most pronounced dorsally. No abscess identified. Ligaments and tendons are suboptimally evaluated by CT technique. 11 mm ulcer lateral to the fifth MTP joint. Prominent subcortical cystic changes within the midfoot, most pronounced in the cuneiforms and bases of the metatarsals with multifocal periarticular/marginal erosions also involving the first metatarsa l head. Findings suggestive of a healed chronic fracture of the fifth metatarsal head. No large erosi ons of the fifth metatarsal head to suggest acute osteomyelitis. Soft tissue calcifications within th e distal Achilles tendon. IMPRESSION: 1. Small ulcer lateral to the fifth MTP joint. No underlying bony destruction to suggest acute osteom yelitis. 2. No abscess. 3. Numerous marginal/periarticular erosions, some of which demonstrate sclerotic overhanging margins suggestive of gout arthropathy with numerous soft tissue periarticular calcifications likely indicati ng tophi. This finding was called/faxed to the floor at time dictation. ACT 112: Negative or not required by law. The above report was generated using voice recognition software. It may contain grammatical, syntax o r spelling errors. Electronically signed by: Richardson Melendez M.D. 07/31/2022 7:48 AM
[2022-07-31] MEDS: CEFEPIME 2,000 MG in SYRINGE 0 ML IV SCH ×2 (08:15→20:27)
[2022-07-31] MEDS: FOLIC ACID 1 MG TAB PO SCH (08:16)
[2022-07-31] MEDS: METOPROLOL SUCC 25MG EXT REL TAB PO SCH (08:16)
[2022-07-31] MEDS: allopurinoL 300 MG TAB PO SCH ×2 (08:16→20:28)
[2022-07-31] MEDS: THIAMINE HCL 100 MG TAB PO SCH (08:17)
[2022-07-31] MEDS: MULTIVITAMIN TAB PO SCH (08:17)
[2022-07-31 08:31] LABS: Anion Gap 7 (3-11); BUN Creatinine Ratio 11.2 (10-20); Blood Urea Nitrogen 14 mg/dl (6-23); Calcium 8.8 mg/dl (8.5-10.1); Carbon Dioxide 29 mmol/L (21-32); Chloride 101 mmol/L (98-107); Creatinine Clr Calc Pharmacy 59.4 ml/min; Est GFR (African American) 64.4 ml/min; Est GFR (Non-African American) 55.6 ml/min; Glucose 84 mg/dl (70-99(Fasting)); Sodium 137 mmol/L (136-145)
[2022-07-31 08:47] LABS: Hematocrit (blood only) 35.7 % (42.0-52.0); Hemoglobin 11.5 g/dl (14.0-18.0); Mean Corpuscular Hemoglobin 26.4 pg (25.0-34.0); Mean Corpuscular Hgb Conc 32.2 g/dL (32.0-36.0); Mean Corpuscular Volume 82.1 fL (80.0-100.0); Mean Platelet Volume 11.5 fL (9.4-12.4); Platelet Count 141 K/uL (130-400); RDW Coefficient of Variation 14.7 % (11.5-14.5); RDW Standard Deviation 43.9 fL (36.4-46.3); Red Blood Count 4.35 M/uL (4.70-6.10); White Blood Count 5.17 K/ul (4.8-10.8)
[2022-07-31] MEDS ORDERED: DOXYCYCLINE HYCLATE 100 MG CAP PO SCH (09:00)
--- NOTE | 2022-07-31 09:17 | Orthopedic Consultation ---
Date of Consultation July 31, 2022 Assessment & Plan (1) Foot infection: Patient seen, evaluated, and treated. I reviewed CT and CT findings with Patient noting no signs of OM. Patient is requesting surgical care due to non healing painful wound. I reviewed excision of wound including fifth metatarsal head and fifth proximal phalanx. I discussed possible need for removal of fifth ray due to non viable tissue from periwound. Patient does understand. I reviewed procedure in detail as well as postoperative recovery. I discussed expectations and patient's current weightbearing status. All questions answered. I have discussed procedure in detail as well as postoperative recovery. All potential risks, benefits, complications, alternatives, rehab, potential for incomplete relief of symptoms, need for further surgery, DVT, PE, , persistent pain, swelling, scarring, weakness, neurovascular, wound complications and potential for amputations were discussed with patient. Unwanted outcomes such as, but not limited to were reviewed including under correction, overcorrection, return of deformity, infection. All questions were answered. Patient has decided to proceed with procedure as indicated. History of Present Illness Attending Physician: Jose Armando Pina MD History of Present Illness Patient is a 77 year old male who is well known to me through prior admission and surgical care. Patient complains of left foot painful wound. Patient has a past medical history significant for chronic diastolic CHF (EF 60 to 65%, TTE 2021), pulmonary hypertension, PAF, hypertension, hyperlipidemia, gout, chronic anemia (baseline hemoglobin of 12 ), alcohol abuse as per records, past tobacco abuse. Patient has a past surgical history significant for right foot cage smetatarsal amputation. He states at bedside he would like wound and bone removed due to chronic pain. Allergies Allergy/AdvReac Type Severity Reaction Status Date / Time gabapentin Allergy Severe swelling Verified 07/30/22 20:01 all over hydrocodone [From Vicodin] Allergy Intermediate Hives Verified 07/30/22 20:01 acetaminophen [From Vicodin] Allergy Unknown Hives Verified 07/30/22 20:01 fish derived Allergy Unknown Unknown Verified 07/31/22 11:47 shellfish derived Allergy Unknown Unknown Verified 07/31/22 11:47 strawberry Allergy Unknown Hives Verified 07/31/22 11:46 Home Medications Medication Instructions Recorded Confirmed Type aspirin 81 mg tablet,delayed 81 mg PO QAM 07/26/18 07/30/22 History release furosemide 40 mg tablet 40 mg PO HS 07/26/18 07/30/22 History tramadol 50 mg tablet 50 mg PO Q6H PRN Pain 07/26/18 07/30/22 History acetaminophen 325 mg tablet (Mapap 650 mg PO Q4H PRN fever or pain 08/01/18 07/30/22 Rx (acetaminophen)) #100 tabs allopurinol 300 mg tablet 300 mg PO BID 12/10/21 07/30/22 History loperamide 2 mg capsule 2 mg PO Q8H PRN diarrhea #30 caps 12/17/21 07/30/22 Rx potassium chloride 10 mEq 20 meq PO BID #0 tabs 12/17/21 07/30/22 Rx tablet,extended release thiamine HCl (vitamin B1) 100 mg 100 mg PO QAM #30 tabs 12/17/21 07/30/22 Rx tablet cephalexin 500 mg capsule 500 mg PO TID 07/30/22 07/30/22 History cholecalciferol (vitamin D3) 25 25 mcg PO QAM 07/30/22 07/30/22 History mcg (1,000 unit) tablet (Vitamin D3) furosemide 40 mg tablet 80 mg PO QAM 07/30/22 07/30/22 History metoprolol succinate 25 mg 25 mg PO QAM 07/30/22 07/30/22 History tablet,extended release 24 hr pantoprazole 40 mg tablet,delayed 40 mg PO QAM PRN Heartburn 07/30/22 07/30/22 History release vit A 7,160 unit-vit C 113 mg-vit 1 tab PO QAM 07/30/22 07/30/22 History E 100 yndi-wqly-esayxb tablet Patient History Medical History Alcohol abuse Anemia CHF (congestive heart failure) Gangrene of right foot Hypertension Obesity LIANET (obstructive sleep apnea) Osteomyelitis of right foot Pericardial effusion Preop cardiovascular exam Pulmonary hypertension Right heart failure Surgical History No significant past surgical history Family History Other Breast cancer Lung cancer Pancreatic cancer Social History Smoking Status: Former smoker Tobacco Type: Smokeless Tobacco (Dip or Chew) Second Hand Exposure: No; Do You Dip or Chew Tobacco: Yes; Tobacco Cessation Education Requested by Patient: No Hx Alcohol Use: Yes Alcohol type: beer Hx Substance Use: No Preferred Language: Emirati Communication Ability: Effective 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 Range of motion to ankle joint with dorsiflexion, plantarflexion, inversion, eversion within normal limits bilateral. HAV left. Left foot bunionette.Digital contractures 2 through 5 bilateral with adductovarus fifth toes.Right TMA. Skin: Focused Exam: Wound location:Left lateral fifth MTPJ Wound base color and depth:Full-thickness probes to tophi and bone Wound size (cm):1.2 x 1.1 x 0.5 cm Odor:No malodor Drainage:Gout exudate Undermining:No undermining Borders:Healthy Neurologic: Absent epicritic sensation Psychiatric: A+Ox3, euthymic affect Results & Data ([facility]) Vital Signs (Past 12 Hours) Vital Signs Temp Pulse Pulse Resp BP Pulse Ox O2 Del Method 07/31/22 07:32 36.8 C 61 16 161/83 H 95 Room Air 07/31/22 00:50 Room Air 07/31/22 01:07 36.7 C 66 18 166/77 H 96 Room Air 07/30/22 22:34 74 16 125/52 L 94 Room Air 07/30/22 22:00 69 16 115/63 96 Room Air Laboratory Results Component 8 d ago Resulting Agency Specimen Description Left Foot [facility] [place] Special Requests None [facility] [place] Gram Stain 3+ Gram Positive Cocci 2+ Gram Negative Rods 2+ Gram Positive Rods No Polys Seen [facility] [place] Culture 2+ Staphylococcus epidermidis 2+ Enterococcus faecalis [facility] Report Status Final Result 07/26/2022 [facility] Organism 2+ Staphylococcus epidermidis [facility] Organism 2+ Enterococcus faecalis [facility] Susceptibility 2+ enterococcus faecalis (microscan samantha-ug/ml (shirley)) 2+ staphylococcus epidermidis (microscan samantha-ug/ml (shirley)) Not Specified Not Specified Ampicillin <=2 Sensitive Clindamycin <=0.25 Sensitive Gentamicin <=4 Sensitive Gentamicin Synergy Sensitive Oxacillin >2 Resistant Sulfa/Trimethoprim >2/38 Resistant Tetracycline >8 Resistant Vancomycin 1 Sensitive 1 Sensitive Specimen Collected: 07/23/22 3:54 PM Last Resulted: 07/26/22 8:15 AM Diagnostic Findings HISTORY: 77 years-old Male L foot pain, infection, osteomyelitis concern chronic left foot pain with clinical concern for osteomyelitis COMPARISON: None TECHNIQUE: Multiple axial CT images of the left foot were obtained following the intravenous administration of 87 mL Optiray 350. A dose lowering technique was used consistent with the principals of ANCA. FINDINGS: There is diffuse atrophy of the musculature. Arterial calcifications. There are prominent nonspecific amorphous soft tissue calcifications throughout the soft tissues of the foot, notably within the periventricular distributions surrounding the first and fifth metatarsophalangeal joints, ankle and midfoot. Mild to moderate subcutaneous edema, most pronounced dorsally. No abscess i dentified. Ligaments and tendons are suboptimally evaluated by CT technique. 11 mm ulcer lateral to the fifth MTP joint. Prominent subcortical cystic changes within the midfoot, most pronounced in the cuneiforms and bases of the metatarsals with multifocal periarticular/marginal erosions also involving the first metatarsal head. Findings suggestive of a healed chronic fracture of the fifth metatarsal head. No large erosions of the fifth metatarsal head to suggest acute osteomyelitis. Soft tissue calcifications within the distal Achilles tendon. IMPRESSION: 1. Small ulcer lateral to the fifth MTP joint. No underlying bony destruction to suggest acute osteomyelitis. 2. No abscess. 3. Numerous marginal/periarticular erosions, some of which demonstrate sclerotic overhanging margins suggestive of gout arthropathy with numerous soft tissue periarticular calcifications likely indicating tophi. This finding was called/faxed to the floor at time dictation. ACT 112: Negative or not required by law. The above report was generated using voice recognition software. It may contain grammatical, syntax or spelling errors. Electronically signed by: Richardson Melendez M.D. 07/31/2022 7:48 AM
[2022-07-31 09:27] LABS: Basophils # (auto) 0.06 K/uL (0-0.2); Basophils % (auto) 1.2 %; Eosinophils # (auto) 0.27 K/uL (0-0.50); Eosinophils % (auto) 5.2 %; Immature Granulocytes # (auto) 0.01 K/uL (0.01-0.20); Immature Granulocytes % (auto) 0.2 %; Lymphocytes # (auto) 1.62 K/uL (1.2-3.4); Lymphocytes % (auto) 31.3 %; Monocytes % (auto) 7.7 %; Neutrophils # (auto) 2.81 K/uL (1.40-6.50); Neutrophils % (auto) 54.4 %
[2022-07-31] MEDS ORDERED: LORazepam 2 MG/1 ML VIAL IV PRN (11:43)
[2022-07-31] MEDS ORDERED: POTASSIUM CHLORIDE CRTAB 20 MEQ TABCR PO STA (11:45)
--- NOTE | 2022-07-31 13:48 | Hospitalist Progress Note ---
Date of Service July 31, 2022 Assessment & Plan (1) Infection of left foot: (2) Open wound of left foot: (3) CHF (congestive heart failure): (4) LIANET (obstructive sleep apnea): (5) Hypertension: (6) Alcohol abuse: Plan This is a 77yo M with a PMH of chronic diastolic CHF (EF 60 to 65%, TTE 2021), pulmonary hypertension, HTN, hyperlipidemia, gout, chronic anemia (baseline hemoglobin of 12 ), alcohol abuse as per records, past tobacco abuse, history of R foot gangrene in November 2021 s/p surgical resection and other medical problems listed below who presents with left foot cellulitis. Left foot cellulitis 2/2 to infected ulcerated wounds from tophaceous gout directed to ED by Dr. Milner VSS, no overt sepsis on admission Foot CT with small ulcer lateral to the fifth MTP joint. No underlying bony destruction to suggest acute osteomyelitis, no abscess. Numerous marginal/periarticular erosions, some of which demonstrate sclerotic overhanging margins suggestive of gout arthropathy with numerous soft tissue periarticular calcifications likely indicating tophi Blood cultures drawn, started on doxycycline, cefepime and dapto Dr Milner consulted, plans to take patient to OR later today for bone removal Outpatient Rheumatology visit for patient's chronic tophaceous gout Chronic diastolic CHF (EF 60 to 65%, TTE 2021), pulmonary hypertension Euvolemic; monitor volume status closely Continue home dose lasix HTN - continue Toprol HLD- continue statin Chronic anemia- hemoglobin at baseline Alcohol abuse as per records, patient has cut down on drinking as per his account. AWSS protocol, gabapentin allergy noted. Ativan PRN DVT Ppx: SQ lovenox Code status: DNR PCP: Levar Dispo: Admitted to med/surg A total of 60 minutes were spent with greater than 50% of that time face to face with the patient, personally reviewing all current laboratories, imaging studies, past medication reconciliation, outpatient chart review, and discussion with specialists to collaborate care for the patient with attending and utilization of translation services. Please see attending documentation for corrections and/or additions. Admission and Anticipated Discharge Date Admission Date: July 30, 2022 Supervising Physician Co-Signing Physician Notes Attending Addendum: care coordinated with JESUS Snow please refer to her notes for full details, I agree with her notes patient seen and examined, records reviewed by myself as well on exam, patient resting in bed, comfortable states L foot pain is manageable no other symptoms VS noted and reviewed oriented x 3, not in distress, speaks in sentences with no effort nor accessory muscle use normal rate, regular rhythm, no murmurs clear bs bilaterally non distended, soft, nontender R mild lower leg edema L foot: ulcer on the lateral 5th metatarsal with some yellow discharge no neuro deficits all labs reviewed ASSESSMENT AND PLAN diagnoses and plan of care as per JESUS Snow's notes Jose Armando Pina MD Subjective Seen and examined in 302. Patient resting comfortably having just had wounds on left foot examined and redressed. Was seen by cottrell blower Dr. Milner this morning who plans to take patient to the OR later today for debridement and bone removal. History of painful tophaceous gout. Patient is a daily drinker, endorsing 3 beers and a shot of whiskey at night. Last drink was yesterday. Otherwise comfortable, denying fever, chills, lightheadedness, chest pain, shortness of breath, nausea, vomiting, abdominal pain, dysuria, diarrhea or constipation. Last bowel movement was yesterday prior to arrival. Review of Systems Review of Systems: At least ten systems reviewed and negative except as noted in the HPI. Physical Exam Physical Exam: Gen: WD/WN, NAD,lying in bed, A&Ox3 HEENT: Hard of hearing, normocephalic, atraumatic, conjunctivae moist, sclerae anicteric, mucous membranes moist Lung: Clear to Auscultation bilaterally, no wheezes/rales/rhonchi Heart: Regular rate, regular rhythm, no murmurs, rubs, or gallops Abdomen: Soft, NT, ND +BS x 4 Extremities: + Gouty tophi noted on bilateral elbows, partial amputation of R foot, RLE warmth, edema R>L, minimal LE swelling, no tenderness, amputation stump right forefoot, dressing over tender left footno edema Skin: Warm, no rash Results & Data Results & Data ([facility]) Vital Signs (Past 12 Hours) Vital Signs Temp Pulse Resp BP Pulse Ox O2 Del Method 07/31/22 11:54 36.6 C 61 18 160/76 H 95 Room Air 07/31/22 07:20 Room Air 07/31/22 07:32 36.8 C 61 16 161/83 H 95 Room Air Laboratory Results Short CBC 07/30/22 07/31/22 Range/Units 18:31 07:10 WBC 7.27 5.17 (4.8-10.8) K/ul Hgb 13.6 L 11.5 L (14.0-18.0) g/dl Hct 42.4 35.7 L (42.0-52.0) % Plt Count 161 141 (130-400) K/uL BMP 07/30/22 07/31/22 07/31/22 18:31 07:10 09:02 Sodium 140 137 Potassium 3.5 TNP 3.0 L Chloride 101 101 Carbon Dioxide 33 H 29 BUN 14 14 Creatinine 1.31 1.25 Glucose 96 84 Calcium 10.1 8.8 Liver Function 07/30/22 Range/Units 18:31 Total Bilirubin 0.7 (0.2-1.0) mg/dl AST 20 (13-39) U/L ALT 10 (7-52) U/L Alkaline Phosphatase 83 (34-104) U/L Albumin 3.9 (3.4-5.0) gm/dl Diagnostic Findings Foot CT 07/30/22 19:24 CT foot LT w con HISTORY: 77 years-old Male L foot pain, infection, osteomyelitis concern c hronic left foot pain with clinical concern for osteomyelitis COMPARISON: None TECHNIQUE: Multiple axial CT images of the left foot were obtained following the intravenous administration of 87 mL Optiray 350. A dose lowering technique was used consistent with the principals of ANCA. FINDINGS: There is diffuse atrophy of the musculature. Arterial calcifications. There are prominent nonspecific amorphous soft tissue calcifications throughout the soft tissues of the foot, notably within the periventricular distributions surrounding the first and fifth metatarsophalangeal joints, ankle and midfoot. Mild to moderate subcutaneous edema, most pronounced dorsally. No abscess identified. Ligaments and tendons are suboptimally evaluated by CT technique. 11 mm ulcer lateral to the fifth MTP joint. Prominent subcortical cystic changes within the midfoot, most pronounced in the cuneiforms and bases of the metatarsals with multifocal periarticular/marginal erosions also involving the first metatarsal head. Findings suggestive of a healed chronic fracture of the fifth metatarsal head. No large erosions of the fifth metatarsal head to suggest acute osteomyelitis. Soft tissue calcifications within the distal Achilles tendon. IMPRESSION: 1. Small ulcer lateral to the fifth MTP joint. No underlying bony destruction to suggest acute osteomyelitis. 2. No abscess. 3. Numerous marginal/periarticular erosions, some of which demonstrate sclerotic overhanging margins suggestive of gout arthropathy with numerous soft tissue periarticular calcifications likely indicating tophi. This finding was called/faxed to the floor at time dictation. ACT 112: Negative or not required by law. The above report was generated using voice recognition software. It may contain grammatical, syntax or spelling errors. Electronically signed by: Richardson Melendez M.D. 07/31/2022 7:48 AM
[2022-07-31] MEDS: ASPIRIN 81 MG ECTAB PO SCH (14:55)
[2022-07-31] MEDS ORDERED: BUPIVACAINE 0.5 % 5 MG/1 ML MPF 30ML VIAL ONE (16:41)
[2022-07-31] MEDS ORDERED: MIDAZOLAM HCL 1 MG/ML 2ML VIAL ONE (16:45)
[2022-07-31] MEDS ORDERED: fentaNYL citrate 100 MCG/2 ML VIAL ONE (16:45)
[2022-07-31] MEDS ORDERED: PROPOFOL IV EMULSION 10 MG/ML 20 ML VIAL IV ONE ×2 (16:45→18:20)
[2022-07-31] MEDS ORDERED: LIDOCAINE 2% MPF LOCAL 5 ML VIAL INFIL ONE (16:45)
[2022-07-31] MEDS ORDERED: ONDANSETRON INJ 2 MG/ML 2 ML VIAL ONE (16:45)
[2022-07-31] MEDS ORDERED: LIDOCAINE 1% LOCAL 20 ML VIAL ONE (17:36)
--- NOTE | 2022-07-31 17:39 | Anesthesiology Consultation ---
Date of Service July 31, 2022 Assessment & Plan Chart Review Chart Review: Acceptable Risk for Surgery Consults Requested none History Surgery Operation Date: 07/31/22 08:50 Proposed Procedures p Excision Bone Left Foot - Nader Milner DPM, MS Height/Weight Height: 5 ft 11 in Weight: 95.8 kg Allergies Allergy/AdvReac Type Severity Reaction Status Date / Time gabapentin Allergy Severe swelling Verified 07/30/22 20:01 all over hydrocodone [From Vicodin] Allergy Intermediate Hives Verified 07/30/22 20:01 acetaminophen [From Vicodin] Allergy Unknown Hives Verified 07/30/22 20:01 fish derived Allergy Unknown Unknown Verified 07/31/22 11:47 shellfish derived Allergy Unknown Unknown Verified 07/31/22 11:47 strawberry Allergy Unknown Hives Verified 07/31/22 11:46 Medications Home Medications Medication Instructions Recorded Confirmed Last Taken aspirin 81 mg tablet,delayed 81 mg PO QAM 07/26/18 07/30/22 07/30/22 release furosemide 40 mg tablet 40 mg PO HS 07/26/18 07/30/22 07/29/22 tramadol 50 mg tablet 50 mg PO Q6H PRN Pain 07/26/18 07/30/22 Unknown acetaminophen 325 mg tablet (Mapap 650 mg PO Q4H PRN fever or pain 08/01/18 07/30/22 12/09/21 (acetaminophen)) #100 tabs 650 mg allopurinol 300 mg tablet 300 mg PO BID 12/10/21 07/30/22 07/30/22 loperamide 2 mg capsule 2 mg PO Q8H PRN diarrhea #30 caps 12/17/21 07/30/22 Unknown potassium chloride 10 mEq 20 meq PO BID #0 tabs 12/17/21 07/30/22 07/30/22 tablet,extended release thiamine HCl (vitamin B1) 100 mg 100 mg PO QAM #30 tabs 12/17/21 07/30/22 07/30/22 tablet cephalexin 500 mg capsule 500 mg PO TID 07/30/22 07/30/22 07/30/22 cholecalciferol (vitamin D3) 25 25 mcg PO QAM 07/30/22 07/30/22 07/30/22 mcg (1,000 unit) tablet (Vitamin D3) furosemide 40 mg tablet 80 mg PO QAM 07/30/22 07/30/22 07/30/22 metoprolol succinate 25 mg 25 mg PO QAM 07/30/22 07/30/22 07/30/22 tablet,extended release 24 hr pantoprazole 40 mg tablet,delayed 40 mg PO QAM PRN Heartburn 07/30/22 07/30/22 Unknown release vit A 7,160 unit-vit C 113 mg-vit 1 tab PO QAM 07/30/22 07/30/22 07/30/22 E 100 [id number] tablet Active Medications Generic Name Dose Route Start Last Admin Trade Name Freq PRN Reason Stop Dose Admin Acetaminophen 650 mg 07/31/22 01:04 07/31/22 06:22 Acetaminophen 325 Mg Tab PO 08/30/22 01:03 650 mg Q4H PRN Administration pain/fever Allopurinol 300 mg 07/31/22 09:00 07/31/22 08:16 Allopurinol 300 Mg Tab PO 08/30/22 08:59 300 mg BID DIANA Administration Aspirin 81 mg 07/31/22 09:00 07/31/22 14:55 Aspirin 81 Mg Ectab PO 08/30/22 08:59 Not Given QAM DIANA Doxycycline Hyclate 100 mg 07/31/22 09:00 07/31/22 08:17 Doxycycline Hyclate 100 Mg Cap PO 08/07/22 08:59 100 mg BID DIANA Administration Folic Acid 1 mg 07/31/22 09:00 07/31/22 08:16 Folic Acid 1 Mg Tab PO 08/30/22 08:59 1 mg QAM DIANA Administration Cefepime HCl 2,000 mg/ Syringe 20 mls @ 5 mls/min 07/31/22 08:00 07/31/22 08:15 IV 08/07/22 07:59 5 mls/min Q12H DIANA Administration Protocol Metoprolol Succinate 25 mg 07/31/22 09:00 07/31/22 08:16 Metoprolol Succ 25mg Ext Rel Tab PO 08/30/22 08:59 25 mg QAM DIANA Administration Multivitamins 1 tab 07/31/22 09:00 07/31/22 08:17 Multivitamin Tab PO 08/30/22 08:59 1 tab QAM DIANA Administration Oxycodone HCl 5 mg 07/31/22 01:04 07/31/22 04:26 Oxycodone Hcl Ir 5 Mg Tab (Immediate Release) PO 08/14/22 01:03 5 mg Q4H PRN Administration Pain Thiamine HCl 100 mg 07/31/22 09:00 07/31/22 08:17 Thiamine Hcl 100 Mg Tab PO 08/30/22 08:59 100 mg QAM DIANA Administration NPO Date Last Intake of Fluids: 07/31/22 Time Last Intake of Fluids: 08:00 Last Intake of Fluids Comment: sips with meds Date Last Intake of Solids: 07/30/22 Time Last Intake of Solids: 22:00 Past Medical History Medical History (Updated 07/31/22 @ 14:29 by Regla Snow PA-C) Alcohol abuse Anemia CHF (congestive heart failure) Gangrene of right foot Hypertension Obesity LIANET (obstructive sleep apnea) Osteomyelitis of right foot Pericardial effusion Preop cardiovascular exam Pulmonary hypertension Right heart failure Past Family History Family History Other Breast cancer Lung cancer Pancreatic cancer Past Surgical History Surgical History No significant past surgical history Social History Smoking Status: Former smoker tobacco type: cigarettes Do You Dip or Chew Tobacco: Yes Hx Alcohol Use: Yes Alcohol type: beer alcohol intake frequency: 3 or more drinks per day Hx Substance Use: No substance use type: does not use Physical Exam Vital Signs Last Vital Signs Temp 36.6 C 07/31/22 17:05 Pulse 65 07/31/22 17:05 Resp 16 07/31/22 17:05 BP 158/54 H 07/31/22 17:05 Pulse Ox 96 07/31/22 17:05 O2 Del Method 07/31/22 17:05 Testing Laboratory Results 07/31/22 07:10 07/31/22 09:02
[2022-07-31] MEDS ORDERED: fentaNYL citrate 100 MCG/2 ML VIAL IV PRN (17:41)
[2022-07-31] MEDS ORDERED: ATROPINE SULFATE 0.1 MG/ML 10ML SYR IV PRN (17:41)
[2022-07-31] MEDS ORDERED: ePHEDrine sulfate 50 MG/ML AMP IV PRN (17:41)
--- NOTE | 2022-07-31 19:01 | History & Physical Bridge Note ---
Date of Service July 31, 2022 History & Physical Bridge Note I have examined the patient, reviewed the History & Physical and in the interval since the performance of the History & Physical I have noted the following changes of clinical significance: no changes noted
--- NOTE | 2022-07-31 19:01 | Post Operative Brief Note ---
Immediate Post Op Note v1 Date of Surgery July 31, 2022 Pre & Post Diagnosis Operation Date: 07/31/22 08:50 Pre-Op Diagnosis: Osteomyelitis left foot. Post-Op Diagnosis: Osteomyelitis left foot. I identified the patient and participated in the time-out.: Yes Procedure Operation Date: 07/31/22 08:50 Actual Procedures p Excision Bone Left Lateral Foot(Left) - Nader Milner DPM, MS Surgeon Nader Milner DPM, MS Merchant Patroller None Estimated Blood Loss 5 Findings Consistent with Post-Op Diagnosis n/a
--- NOTE | 2022-07-31 20:51 | Operative Report ---
Post Operative Report Pre & Post Diagnosis Operation Date: 07/31/22 08:50 Pre-Op Diagnosis: Osteomyelitis left foot. Post-Op Diagnosis: Osteomyelitis left foot. I identified the patient and participated in the time-out.: Yes Procedure Operation Date: 07/31/22 08:50 Actual Procedures p Excision Bone Left Lateral Foot(Left) - Nader Milner DPM, MS Surgeon Nader Milner DPM, MS Collection Specialist None Estimated Blood Loss 5 Findings Consistent with Post-Op Diagnosis necrotic nonviable bone and soft tissue left foot Specimens 1.) Left foot fifth metatarsal proximal phalanx - Pathology 2.) Left foot excision of wound - Microbiology Description of Procedure History of present illness: Patient is a 77 year old male who is seen for treatment infected, non healing, left foot wound. Patient has a history of previous right trans metatarsal amputation secondary to ulceration and OM. Reviewed previous vascular studies. I discussed patient's history and reviewed excision of non viable bone and soft tissue. All questions answered. Discussed procedure in detail and postoperative recovery. All potential risks, benefits, complications, alternatives, rehab, potential for incomplete relief of symptoms, need for further surgery, DVT, PE, , persistent pain, swelling, scarring, weakness, neurovascular, wound complications and potential for amputations were discussed with patient. Unwanted outcomes such as, but not limited to were reviewed including under correction, overcorrection, return of deformity, infec tion. All questions were answered. Patient has decided to proceed with procedure as indicated. Preoperative diagnosis: Left foot infected, non healing wound with Gouty tophi exudate and exposed fifth metatarsal and proximal phalanx Postoperative diagnosis: same Name of operation: 1.) Excision of chronic wound and Tophaceous gout of Left foot 2.) Excision of Left fifth metatarsal, 3.) Excision of left fifth proximal phalanx Surgeon Dr. Milner Collection Specialist: None Anesthesia: local with monitored anesthesia care Hemostasis: pneumatic ankle tourniquet Estimated blood loss: minimal Procedure in detail: Under mild sedation the patient was brought in the operating room placed on the operating table in supine position. A pneumatic ankle tourniquet was then placed about the patient's left ankle. Following IV sedation local anesthesia was obtained about the left utilizing 15 cc of 1% lidocaine plain. The foot was then prepped scrubbed and draped in usual aseptic manner. An Esmarch bandage was utilized to exsanguinate the patient's left foot and the pneumatic ankle tourniquet was then inflated. Attention was then directed to a nonhealing ulcer on the left fifth metatarsal phalangeal joint measuring 1.5 x 1.5 x 0.8cm. An ellipse incision was created surrounding the wound utilizing a sharp, sterile, #15 blade with healthy margins. The incision which was deepened through subcutaneous tissue using sharp blunt dissection. Extensive Tophaceous gout was observed. The ulcer was excised and placed on the back table, labeled and sent to microbiology. Care was taken to identify and retract all vital neurovascular structures and the dissection was carried down to the fifth metatarsal and proximal phalanx bone. All bleeders were ligated and cauterized necessary. At this time the an oscillating saw was used to removed the left fifth Metatarsal head and left proximal phalanx base. The bone was placed on the back table. The distal portion of the left fifth metatarsal was sent to pathology. The left fifth proximal phalanx was sent to pathology. One litter of lactate ringer was utilized to flush the incision site. The skin was then primarily closed utilizing 3-0 nylon in horizontal suture mattress techniques as well as simple suture closure. Upon completion of the procedure the incision was dressed with Betadine soaked Adaptic followed by sterile compressive dressing consisting of 4 x 4's Robert Kerlix ABD the pneumatic ankle tourniquet was inflated and a prompt hyperemic response was noted to all digits of the left foot. An Seth wrap and postoperative shoe were then applied. The Patient tolerated the procedure and anesthesia well. He was transferred to recovery room vital signs stable and vascular status intact all toes of the left foot following. Postoperative monitoring the patient will be re-admitted to the floor resuming all preoperative orders. Contact Dr. Milner for all postoperative care if any problems arise . I attest to the content of the Intraoperative Record and any orders documented therein. Any exceptions are noted below.
--- NOTE | 2022-07-31 21:11 | Anesthesiology Progress Note ---
Date of Service July 31, 2022 Anesthesia Post Procedure Vital Signs Vital Signs: Temp Pulse Pulse Resp BP Pulse Ox O2 Del Method 07/31/22 20:42 36.4 C L 72 16 150/61 H 97 Room Air 07/31/22 20:12 36.4 C L 68 18 148/54 H 97 Room Air 07/31/22 19:35 36.4 C L 66 18 155/71 H 95 Room Air 07/31/22 19:20 36.0 C L 66 14 131/97 97 Room Air 07/31/22 19:10 67 17 149/100 H 96 Room Air 07/31/22 19:02 36.2 C L 72 20 159/66 H 97 Room Air 07/31/22 17:05 36.6 C 65 16 158/54 H 96 Room Air 07/31/22 15:14 36.6 C 62 16 125/59 L 97 Room Air 07/31/22 11:54 36.6 C 61 18 160/76 H 95 Room Air 07/31/22 07:20 Room Air 07/31/22 07:32 36.8 C 61 16 161/83 H 95 Room Air 07/31/22 00:50 Room Air 07/31/22 01:07 36.7 C 66 18 166/77 H 96 Room Air 07/30/22 22:34 74 16 125/52 L 94 Room Air 07/30/22 22:00 69 16 115/63 96 Room Air 07/30/22 21:13 68 16 159/58 H 96 Room Air Pain Intensity Right Foot: Pain Intensity: 4 Transfer of Care Handoff Completed per policy Notes Mental Status: alert / awake / arousable and participated in evaluation Patient Amnestic to Procedure: Yes Nausea / Vomiting: adequately controlled Pain: adequately controlled Airway Patency, RR, SpO2: stable & adequate BP & HR: stable & adequate Hydration State: stable & adequate Anesthetic Complications: no major complications apparent
[2022-07-31] MEDS: DAPTOmycin 450 MG in SYRINGE 0 ML IV SCH (22:30)
[2022-08-01] MEDS: oxyCODONE HCL IR 5 MG TAB (IMMEDIATE RELEASE) PO PRN ×4 (02:13→20:53)
[2022-08-01] MEDS: ACETAMINOPHEN 325 MG TAB PO PRN ×2 (02:14→18:09)
--- NOTE | 2022-08-01 07:34 | Ultrasound Report ---
RIGHT LOWER EXTREMITY VENOUS DOPPLER HISTORY: R, edematous compared to LLE COMPARISON STUDY: None. FINDINGS: There is normal compressibility, flow, and augmentation within the right lower extremity de ep venous system. IMPRESSION: No DVT within the right lower extremity ACT 112: Negative or not required by law. Electronically signed by: Jairo Hearn M.D. 08/01/2022 7:32 AM
[2022-08-01] MEDS: CEFEPIME 2,000 MG in SYRINGE 0 ML IV SCH ×2 (08:13→16:32)
[2022-08-01] MEDS: allopurinoL 300 MG TAB PO SCH ×2 (08:13→19:23)
[2022-08-01] MEDS: ASPIRIN 81 MG ECTAB PO SCH (08:13)
[2022-08-01] MEDS: METOPROLOL SUCC 25MG EXT REL TAB PO SCH (08:14)
[2022-08-01] MEDS: MULTIVITAMIN TAB PO SCH (08:14)
[2022-08-01] MEDS: FOLIC ACID 1 MG TAB PO SCH (08:14)
[2022-08-01] MEDS: THIAMINE HCL 100 MG TAB PO SCH (08:14)
[2022-08-01 08:38] LABS: Hematocrit (blood only) 33.1 % (42.0-52.0); Hemoglobin 10.7 g/dl (14.0-18.0); Mean Corpuscular Hemoglobin 27.1 pg (25.0-34.0); Mean Corpuscular Hgb Conc 32.3 g/dL (32.0-36.0); Mean Corpuscular Volume 83.8 fL (80.0-100.0); Mean Platelet Volume 11.5 fL (9.4-12.4); Platelet Count 127 K/uL (130-400); RDW Coefficient of Variation 14.6 % (11.5-14.5); RDW Standard Deviation 44.3 fL (36.4-46.3); Red Blood Count 3.95 M/uL (4.70-6.10); White Blood Count 5.44 K/ul (4.8-10.8)
[2022-08-01 09:14] LABS: Anion Gap 5 (3-11); BUN Creatinine Ratio 10.8 (10-20); Blood Urea Nitrogen 13 mg/dl (6-23); Calcium 8.9 mg/dl (8.5-10.1); Carbon Dioxide 29 mmol/L (21-32); Chloride 102 mmol/L (98-107); Creatinine Clr Calc Pharmacy 61.9 ml/min; Est GFR (African American) 67.7 ml/min; Est GFR (Non-African American) 58.4 ml/min; Glucose 86 mg/dl (70-99(Fasting)); Sodium 136 mmol/L (136-145)
--- NOTE | 2022-08-01 10:16 | Ultrasound Report ---
US arterial duplex left lower extremity CLINICAL HISTORY: Left lower extremity wounds, concern for peripheral arterial disease COMPARISON STUDY: None. FINDINGS: Calcified plaque throughout the left lower extremity arterial system. Normal velocities and waveforms seen within the left common femoral artery. There are monophasic waveforms within the left superficial femoral artery, left popliteal artery and calf arteries. 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 No elevated velocities identified. The dorsalis pedis artery was not assessed due to the recent left foot surgery. IMPRESSION: 1. The left peroneal artery appears occluded. 2. Diffuse calcified plaque throughout the left lower extremity arterial system. 3. Monophasic waveforms with a majority left lower extremity arterial system suggestive of diffuse at herosclerotic disease. ACT 112: Negative or not required by law. Electronically signed by: Jairo Hearn M.D. 08/01/2022 10:14 AM
--- NOTE | 2022-08-01 18:09 | Hospitalist Progress Note ---
Date of Service August 01, 2022 Assessment & Plan (1) Infection of left foot: (2) Open wound of left foot: (3) CHF (congestive heart failure): (4) LIANET (obstructive sleep apnea): (5) Hypertension: (6) Alcohol abuse: Plan Per JESUS Snow's notes with addendum: This is a 77yo M with a PMH of chronic diastolic CHF (EF 60 to 65%, TTE 2021), pulmonary hypertension, HTN, hyperlipidemia, gout, chronic anemia (baseline hemoglobin of 12 ), alcohol abuse as per records, past tobacco abuse, history of R foot gangrene in November 2021 s/p surgical resection and other medical problems listed below who presents with left foot cellulitis. Left foot cellulitis 2/2 to infected ulcerated wounds from tophaceous gout directed to ED by Dr. Milner VSS, no overt sepsis on admission Foot CT with small ulcer lateral to the fifth MTP joint. No underlying bony [place] truction to suggest acute osteomyelitis, no abscess. Numerous marginal/periarticular erosions, some of which demonstrate sclerotic overhanging margins suggestive of gout arthropathy with numerous soft tissue periarticular calcifications likely indicating tophi Blood cultures drawn, started on doxycycline, cefepime and dapto Dr Milner consulted, plans to take patient to OR later today for bone removal Outpatient Rheumatology visit for patient's chronic tophaceous gout 07/31: Status post excision of bone left lateral foot, by Dr. Milner Blood cultures pending Continue daptomycin plus cefepime day #2 Pain control PT and OT evaluation Chronic diastolic CHF (EF 60 to 65%, TTE 2021), pulmonary hypertension Euvolemic; monitor volume status closely Continue home dose lasix HTN - continue Toprol HLD- continue statin Chronic anemia- hemoglobin at baseline Alcohol abuse as per records, patient has cut down on drinking as per his account. AWSS protocol, gabapentin allergy noted. Ativan PRN DVT Ppx: SQ lovenox Code status: DNR PCP: Levar Dispo: Pending, PT OT evaluation Admission and Anticipated Discharge Date Admission Date: July 30, 2022 Subjective Follow-up for left foot ulcer infection, etc. Seen resting in bed side chair, in good spirits Reports mild discomfort over left foot Adequately controlled No fevers or chills no chest pain, dyspnea, palpitations, dizziness Review of Systems Review of Systems: all noted and negative except for above Physical Exam Physical Exam: General- oriented x 3, not in distress, speaks in sentences with no effort or accessory muscle use Eyes- anicteric Neck- no JVD Lungs- clear BS bilaterally, no rales/wheezes Heart- normal rate, regular rhythm; no murmurs Abdomen- normal bowel sounds, nondistended, soft, nontender Extremities- no pretibial edema, no calf tenderness Left foot-heavy dressing in place, no leg edema noted Neuro- alert, oriented x 3; no gross focal neurologic deficits Skin- warm & dry Results & Data Results & Data ([facility]) Vital Signs (Past 12 Hours) Vital Signs Temp Pulse Resp BP Pulse Ox O2 Del Method 08/01/22 14:23 36.6 C 77 16 122/62 95 Room Air 08/01/22 11:28 36.8 C 64 16 179/72 H 92 Room Air 08/01/22 07:11 36.4 C L 65 16 128/62 93 Room Air all noted and reviewed including below
[2022-08-01] MEDS: MoRPHine SULFATE 4 MG/ML 1 ML CARP\\VIAL IV PRN (18:43)
[2022-08-01] MEDS ORDERED: FUROSEMIDE INJ 20 MG/2 ML VIAL IV ONE (19:41)
[2022-08-01] MEDS ORDERED: POTASSIUM CHLORIDE CRTAB 20 MEQ TABCR PO STA (19:41)
[2022-08-01] MEDS: DAPTOmycin 450 MG in SYRINGE 0 ML IV SCH (21:09)
[2022-08-02] MEDS: CEFEPIME 2,000 MG in SYRINGE 0 ML IV SCH ×4 (00:55→23:34)
[2022-08-02] MEDS: oxyCODONE HCL IR 5 MG TAB (IMMEDIATE RELEASE) PO PRN ×3 (01:42→19:31)
[2022-08-02] MEDS: MoRPHine SULFATE 4 MG/ML 1 ML CARP\\VIAL IV PRN ×2 (05:26→16:38)
[2022-08-02 06:10] LABS: Hematocrit (blood only) 36.5 % (42.0-52.0); Hemoglobin 11.5 g/dl (14.0-18.0); Mean Corpuscular Hemoglobin 26.3 pg (25.0-34.0); Mean Corpuscular Hgb Conc 31.5 g/dL (32.0-36.0); Mean Corpuscular Volume 83.5 fL (80.0-100.0); Mean Platelet Volume 10.5 fL (9.4-12.4); Platelet Count 121 K/uL (130-400); RDW Coefficient of Variation 14.5 % (11.5-14.5); RDW Standard Deviation 43.8 fL (36.4-46.3); Red Blood Count 4.37 M/uL (4.70-6.10); White Blood Count 5.78 K/ul (4.8-10.8)
[2022-08-02 06:25] LABS: Calcium 9.5 mg/dl (8.5-10.1); Creatinine Clr Calc Pharmacy 62.9 ml/min; Est GFR (African American) 69.1 ml/min; Est GFR (Non-African American) 59.6 ml/min; Potassium 3.6 mmol/L (3.5-5.1)
[2022-08-02] MEDS: MULTIVITAMIN TAB PO SCH (08:50)
[2022-08-02] MEDS: FOLIC ACID 1 MG TAB PO SCH (08:50)
[2022-08-02] MEDS: ASPIRIN 81 MG ECTAB PO SCH (08:50)
[2022-08-02] MEDS: METOPROLOL SUCC 25MG EXT REL TAB PO SCH (08:50)
[2022-08-02] MEDS: THIAMINE HCL 100 MG TAB PO SCH (08:50)
[2022-08-02] MEDS: allopurinoL 300 MG TAB PO SCH ×2 (08:50→19:32)
[2022-08-02] MEDS ORDERED: FUROSEMIDE INJ 20 MG/2 ML VIAL IV ONE (12:30)
--- NOTE | 2022-08-02 15:42 | Hospitalist Progress Note ---
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 Left foot cellulitis 2/2 to infected ulcerated wounds from tophaceous gout directed to ED by Dr. Milner VSS, no overt sepsis on admission Foot CT with small ulcer lateral to the fifth MTP joint. No underlying bony [place] truction to suggest acute osteomyelitis, no abscess. Numerous marginal/periarticular erosions, some of which demonstrate sclerotic overhanging margins suggestive of gout arthropathy with numerous soft tissue periarticular calcifications likely indicating tophi Blood cultures drawn, started on doxycycline, cefepime and dapto Dr Milner consulted, plans to take patient to OR later today for bone removal Outpatient Rheumatology visit for patient's chronic tophaceous gout 07/31: Status post excision of bone left lateral foot, by Dr. Milner Wound culture pending Blood cultures negative so far Discussed with crew foreman Dr. Milner, wound looks good, no other issues with left foot Pain well controlled Continue daptomycin plus cefepime day #3 Lasix 20 mg IV ordered for leg edema Pain control PT and OT evaluation Chronic diastolic CHF (EF 60 to 65%, TTE 2021), pulmonary hypertension Euvolemic; monitor volume status closely Continue home dose lasix HTN - continue Toprol HLD- continue statin Chronic anemia- hemoglobin at baseline Alcohol abuse as per records, patient has cut down on drinking as per his account. AWSS protocol, gabapentin allergy noted. Ativan PRN DVT Ppx: SQ lovenox Code status: DNR PCP: Levar Dispo: Pending, PT OT evaluation Admission and Anticipated Discharge Date Admission Date: July 30, 2022 Subjective Follow-up for left foot ulcer infection, cellulitis, etc. Seen sitting up in bed, in good spirits States left foot pain is improving Still having bilateral leg edema more than the right No shortness of breath, chest pain, fevers or chills No other symptoms Review of Systems Review of Systems: all noted and negative except for above Physical Exam Physical Exam: General- oriented x 3, not in distress, speaks in sentences with no effort or accessory muscle use Eyes- anicteric Neck- no JVD Lungs- clear BS bilaterally, no rales/wheezes Heart- normal rate, regular rhythm; no murmurs Abdomen- normal bowel sounds, nondistended, soft, no tenderness Extremities-mild bilateral lower extremity edema right more than left, no erythema No tenderness Left foot-heavy dressing in place, no bleeding or discharge Neuro- alert, oriented x 3; no gross focal neurologic deficits Skin- warm & dry Results & Data Results & Data ([facility]) Vital Signs (Past 12 Hours) Vital Signs Temp Pulse Pulse Resp BP BP Pulse Ox 08/02/22 15:31 36.9 C 75 16 148/78 H 95 08/02/22 07:12 36.6 C 68 18 170/62 H 100 O2 Del Method 08/02/22 15:31 Room Air 08/02/22 07:12 Room Air all noted and reviewed including below
[2022-08-02] MEDS ORDERED: CALCIUM CARBONATE 500 MG CHEWABLE TAB PO PRN (16:46)
[2022-08-02] MEDS: POTASSIUM CHLORIDE CRTAB 20 MEQ TABCR PO SCH (19:36)
[2022-08-02] MEDS: MAGNESIUM HYDROXIDE SUSP 30 ML UDC PO PRN (19:36)
--- NOTE | 2022-08-02 20:43 | Orthopedic Progress Note ---
Date of Service August 02, 2022 Assessment & Plan (1) Infection of left foot: Plan: Patient seen evaluated, and treated. Awaiting culture and sensitives. Awaiting pathology. Patient is weight bearing as tolerated. (2) Foot pain, left: Admission and Anticipated Discharge Date Admission Date: July 30, 2022 Subjective Patient seen at bedside. Patient status post day #2 excision of non viable bone and soft tissue left foot. He notes moderate discomfort to left surgical foot. He notes his discomfort is relieved by placing it on floor. Review of Systems Review of Systems: All systems reviewed & are unremarkable except as noted in HPI & below Physical Exam Constitutional: WD/WN, vitals as above Respiratory: normal respiratory effort Cardiovascular: Rate/Rhythm: regular rate and regular rhythm Skin: Sutures intact. Skin coapted. Neurologic: Decreased epicritic sensation Psychiatric: A+Ox3, euthymic affect Results & Data ([facility]) Vital Signs (Past 12 Hours) Vital Signs Temp Pulse Resp BP Pulse Ox O2 Del Method 08/02/22 15:31 36.9 C 75 16 148/78 H 95 Room Air
[2022-08-02] MEDS ORDERED: FUROSEMIDE 40 MG TAB PO SCH (21:00)
[2022-08-02] MEDS: DAPTOmycin 450 MG in SYRINGE 0 ML IV SCH (22:54)
[2022-08-03] MEDS ORDERED: LORATADINE 10 MG TAB PO ONE (00:45)
[2022-08-03] MEDS: ASPIRIN 81 MG ECTAB PO SCH (08:34)
[2022-08-03] MEDS: FUROSEMIDE 80 MG TAB PO SCH (08:34)
[2022-08-03] MEDS: FOLIC ACID 1 MG TAB PO SCH (08:34)
[2022-08-03] MEDS: allopurinoL 300 MG TAB PO SCH ×2 (08:34→21:28)
[2022-08-03] MEDS: METOPROLOL SUCC 25MG EXT REL TAB PO SCH (08:34)
[2022-08-03] MEDS: MULTIVITAMIN TAB PO SCH (08:35)
[2022-08-03] MEDS: POTASSIUM CHLORIDE CRTAB 20 MEQ TABCR PO SCH ×2 (08:35→21:29)
[2022-08-03] MEDS: CEFEPIME 2,000 MG in SYRINGE 0 ML IV SCH ×2 (08:35→17:02)
[2022-08-03] MEDS: THIAMINE HCL 100 MG TAB PO SCH (08:35)
[2022-08-03] MEDS: oxyCODONE HCL IR 5 MG TAB (IMMEDIATE RELEASE) PO PRN ×2 (14:55→21:32)
--- NOTE | 2022-08-03 15:15 | Hospitalist Progress Note ---
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 Left foot cellulitis 2/2 to infected ulcerated wounds from tophaceous gout directed to ED by Dr. Milner Foot CT with small ulcer lateral to the fifth MTP joint. No underlying bony destruction to suggest acute osteomyelitis, no abscess. Numerous audrey inal/periarticular erosions, some of which demonstrate sclerotic overhanging margins suggestive of gout arthropathy with numerous soft tissue periarticular calcifications likely indicating tophi POD# 3 1.) Excision of chronic wound and Tophaceous gout of Left foot 2.) Excision of Left fifth metatarsal, 3.) Excision of left fifth proximal phalanx by Dr. Milner Blood cultures no growth Wound culture with pinpoint growth, reincubating On cefepime and Dapto (day 5) Outpatient Rheumatology visit for patient's chronic tophaceous gout Chronic diastolic CHF (EF 60 to 65%, TTE 2021), pulmonary hypertension Received Lasix 20 mg IV on 08/01 due to leg edema Currently appears euvolemic, continue home dose Lasix HTN BP controlled, continue Toprol HLD Continue statin Chronic anemia Hemoglobin at baseline Alcohol abuse As per records, patient has cut down on drinking as per his account. AWSS protocol, gabapentin allergy noted. Ativan PRN No signs of alcohol withdrawal DVT PROPHYLAXIS SQ Lovenox Admission and Anticipated Discharge Date Admission Date: July 30, 2022 Supervising Physician Co-Signing Physician Notes Attending Addendum: care coordinated with CECI Mcdowell please refer to her notes for full details, I agree with her notes patient seen and examined, records reviewed by myself as well on exam, patient seen sitting up in bed, comfortable states foot pain continues to improve no fever/chills no other symptoms VS noted and reviewed oriented x 3, not in distress, speaks in sentences with no effort nor accessory muscle use normal rate, regular rhythm, no murmurs clear breath sounds bilaterally non distended, soft, nontender (+) mild lower leg edema, no erythema, warmth foot: (+) dressing in place, no bleeding/discharge no neuro deficits ASSESSMENT AND PLAN> will give Lasix 40mg IV to address leg edema other diagnoses and plan of care as per CECI Mcdowell's notes Jose Armando Pina MD Subjective Follow-up for left foot cellulitis, tophaceous gout, s/p excision of nonviable bone and soft tissue of left foot. Patient seen and examined. Offers no complaints, reports pain is well controlled. Denies chest pain or shortness of breath. No abdominal pain or nausea. Review of Systems Review of Systems: ROS per HPI, all other systems reviewed and negative Physical Exam Constitutional: WD/WN, vitals as above no acute distress Respiratory: normal respiratory effort, lungs clear to auscultation Cardiovascular: Rate/Rhythm: regular rate and regular rhythm Vessels: normal peripheral pulses Extremities: no edema Gastrointestinal (Abdomen): Percussion/Palpation: abdomen soft; abdomen nontender Musculoskeletal: S/p left foot surgery, dressing CDI, CSM checks intact to LLE Skin: no rashes, warm and dry Neurologic: no focal motor deficits Psychiatric: A+Ox3, euthymic affect Results & Data Results & Data ([facility]) Vital Signs (Past 12 Hours) Vital Signs Temp Pulse Resp BP Pulse Ox O2 Del Method 08/03/22 11:10 Room Air 08/03/22 08:01 36.7 C 75 18 150/95 H 96 Room Air 08/03/22 08:01 36.7 C 150/95 H
[2022-08-03] MEDS ORDERED: FUROSEMIDE 40 MG/4 ML VIAL IV ONE (16:52)
[2022-08-03] MEDS: ENOXAPARIN INJ 40 MG/0.4 ML SYR SQ SCH (17:20)
[2022-08-03] MEDS: DAPTOmycin 450 MG in SYRINGE 0 ML IV SCH (21:30)
[2022-08-04] MEDS: CEFEPIME 2,000 MG in SYRINGE 0 ML IV SCH ×2 (00:40→10:44)
[2022-08-04 07:19] LABS: BUN Creatinine Ratio 11.2 (10-20); Calcium 9.1 mg/dl (8.5-10.1); Creatinine Clr Calc Pharmacy 59.4 ml/min; Est GFR (African American) 64.4 ml/min; Est GFR (Non-African American) 55.6 ml/min; Magnesium 2.2 mg/dl (1.7-2.4); Potassium 3.3 mmol/L (3.5-5.1)
[2022-08-04] MEDS: FUROSEMIDE 80 MG TAB PO SCH (08:33)
[2022-08-04] MEDS: POTASSIUM CHLORIDE CRTAB 20 MEQ TABCR PO SCH ×2 (08:33→19:47)
[2022-08-04] MEDS: ASPIRIN 81 MG ECTAB PO SCH (08:33)
[2022-08-04] MEDS: THIAMINE HCL 100 MG TAB PO SCH (08:33)
[2022-08-04] MEDS: FOLIC ACID 1 MG TAB PO SCH (08:33)
[2022-08-04] MEDS: METOPROLOL SUCC 25MG EXT REL TAB PO SCH (08:33)
[2022-08-04] MEDS: MULTIVITAMIN TAB PO SCH (08:33)
[2022-08-04] MEDS: allopurinoL 300 MG TAB PO SCH ×2 (08:33→19:48)
[2022-08-04] MEDS: oxyCODONE HCL IR 5 MG TAB (IMMEDIATE RELEASE) PO PRN ×3 (09:40→20:04)
[2022-08-04] MEDS ORDERED: POTASSIUM CHLORIDE CRTAB 20 MEQ TABCR PO STA (09:45)
--- NOTE | 2022-08-04 10:03 | Orthopedic Progress Note ---
Date of Service August 04, 2022 Assessment & Plan (1) Infection of left foot: Plan: Patient seen evaluated, and treated. There is bilateral lower extremity edema noted and discussed with Patient elevation of legs while at rest. Patient does have some minimal gout exudate from proximal wound incision noted during today's dressing change. Patient is currently taking allopurinol 300mg bid. We discussed Gout diet while inpatient. Patient is unfamiliar with foods that can cause acute gout flare ups and these were reviewed. Previous right foot wound culture results taken on 07/23/22 show enterococcus faecalis & staphylococcus epidermidis. Awaiting culture and sensitives taken on 07/31/22 from OR. Patient is weight bearing as tolerated. Thank you for allowing me to participate in the care of this Patient. I will continue to follow while Patient is in house. (2) Foot pain, left: Admission and Anticipated Discharge Date Admission Date: July 30, 2022 Subjective Follow-up for left foot cellulitis, tophaceous gout, s/p Day #4 excision of nonviable bone and soft tissue of left foot DOS:07/31/22. Patient seen and examined. Offers no complaints, reports pain is well controlled. Review of Systems Review of Systems: All systems reviewed & are unremarkable except as noted in HPI & below Physical Exam Physical Exam: Constitutional: WD/WN, vitals as above Respiratory: normal respiratory effort Cardiovascular: Rate/Rhythm: regular rate and regular rhythm Skin: Sutures intact. Skin is well approximated. Slight gout exudate from proximal wound margin. Psychiatric: A+Ox3, euthymic affect Results & Data ([facility]) Vital Signs (Past 12 Hours) Vital Signs Temp Pulse Resp BP Pulse Ox O2 Del Method 08/04/22 07:06 36.9 C 65 17 134/68 99 Room Air Diagnostic Findings Specimen Description Left Foot [facility] [place] Special Requests None [facility] [place] Gram Stain 3+ Gram Positive Cocci 2+ Gram Negative Rods 2+ Gram Positive Rods No Polys Seen [facility] [place] Culture 2+ Staphylococcus epidermidis 2+ Enterococcus faecalis [facility] [place] Report Status Final Result 07/26/2022 [facility] [place] Organism 2+ Staphylococcus epidermidis [facility] Organism 2+ Enterococcus faecalis [facility] [place] Susceptibility 2+ enterococcus faecalis (microscan samantha-ug/ml (shirley)) 2+ staphylococcus epidermidis (microscan samantha-ug/ml (shirley)) Not Specified Not Specified Ampicillin <=2 Sensitive Clindamycin <=0.25 Sensitive Gentamicin <=4 Sensitive Gentamicin Synergy Sensitive Oxacillin >2 Resistant Sulfa/Trimethoprim >2/38 Resistant Tetracycline >8 Resistant Vancomycin 1 Sensitive 1 Sensitive Specimen Collected: 07/23/22 3:54 PM Last Resulted: 07/26/22 8:15 AM
[2022-08-04] MEDS ORDERED: traMADol HCL 50 MG TABLET PO PRN ×2 (11:45→12:35)
--- NOTE | 2022-08-04 12:13 | Hospitalist Progress Note ---
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 Left foot cellulitis 07/23 to infected ulcerated wounds from tophaceous gout directed to ED by Dr. Milner Foot CT with small ulcer lateral to the fifth MTP joint. No underlying bony destruction to suggest acute osteomyelitis, no abscess. Numerous mar ginal/periarticular erosions, some of which demonstrate sclerotic overhanging margins suggestive of gout arthropathy with numerous soft tissue periarticular calcifications likely indicating tophi POD# 4 1.) Excision of chronic wound and Tophaceous gout of Left foot 2.) Excision of Left fifth metatarsal, 3.) Excision of left fifth proximal phalanx by Dr. Milner Blood cultures no growth Outpatient wound culture results from 07/23/[address] Milner and reviewed. Growing Enterococcus faecalis and Staphylococcus epidermis. Will obtain formal copy for chart. Surgical Wound culture --high counts mixed probable skin microbiota. Surgical pathology pending. On cefepime and Dapto (day 6) -- will transition to PO clinda and Augmentin today based upon outpatient wound culture from 07/23/2022. Plan to continue antibiotics until 08/10/2022 (10 days postop). Start daily probiotic. Outpatient Rheumatology visit for patient's chronic tophaceous gout. Continue allopurinol. Chronic diastolic CHF (EF 60 to 65%, TTE 2021), pulmonary hypertension Received Lasix 20 mg IV on 08/01, Lasix 40mg IV on 08/03 due to leg edema Continues to have ongoing leg edema, ? due to IVF from IV antibiotics Will give additional Lasix 40 mg IV today, hold PM oral dose Neuropathy Patient complaining of burning pain to the bilateral legs and feet. Previously trialed on gabapentin however patient has an allergy. Typically managed with tramadol at home, will resume HTN BP controlled, continue Toprol HLD Continue statin Chronic anemia Hemoglobin at baseline Alcohol abuse As per records, patient has cut down on drinking as per his account. AWSS protocol, gabapentin allergy noted. Ativan PRN No signs of alcohol withdrawal DVT PROPHYLAXIS SQ Lovenox Admission and Anticipated Discharge Date Admission Date: July 30, 2022 Supervising Physician Co-Signing Physician Notes Attending Addendum: care coordinated with CECI Mcdowell please refer to her notes for full details, I agree with her notes patient seen and examined, records reviewed by myself as well on exam, patient seen resting in bed, complaining of bilateral lower extremity pain Denies fevers or chills no other symptoms VS noted and reviewed oriented x3, not in distress, speaks in sentences with no effort nor accessory muscle use normal rate, regular rhythm, no murmurs clear breath sounds bilaterally non distended, soft, nontender Mild bilateral lower extremity edema, no erythema/warmth/tenderness Left foot: Heavy dressing in place, no bleeding or discharge no neuro deficits Labs noted and reviewed ASSESSMENT AND PLAN Left foot infected ulcer Status post bone excision Wound culture from outpatient podiatry clinic: Enterococcus, Staph epidermidis, sensitive to ampicillin and clindamycin respectively Transition to Augmentin plus clindamycin p.o. x1 more week Acute on chronic diastolic CHF Additional Lasix 40 mg IV today Monitor other diagnoses and plan of care as per CECI Mcdowell's notes Jose Armando Pina MD Subjective Follow-up for left foot cellulitis, tophaceous gout, s/p excision of nonviable bone and soft tissue of left foot. Patient seen and examined. Patient reporting bilateral lower extremity pain and worsened swelling today. Observed patient working with therapy ambulating in the [place]. Patient denies chest pain or shortness of breath. No abdominal pain or nausea. Review of Systems Review of Systems: ROS per HPI, all other systems reviewed and negative Physical Exam Constitutional: WD/WN, vitals as above no acute distress Respiratory: normal respiratory effort, lungs clear to auscultation Cardiovascular: Rate/Rhythm: regular rate and regular rhythm Extremities: + edema (+2-3 pitting edema BLE, L > R ) Gastrointestinal (Abdomen): Percussion/Palpation: abdomen soft; abdomen nontender Skin: no rashes, warm and dry Neurologic: no focal motor deficits Psychiatric: A+Ox3, euthymic affect Results & Data Results & Data ([facility]) Vital Signs (Past 12 Hours) Vital Signs Temp Pulse Resp BP Pulse Ox O2 Del Method 08/04/22 07:06 36.9 C 65 17 134/68 99 Room Air Laboratory Results [facility] 08/04/22 06:22 Sodium 137 Potassium 3.3 L Chloride 103 Carbon Dioxide 26 BUN 14 Creatinine 1.25 Glucose 87 Calcium 9.1
[2022-08-04] MEDS: ADVANCED PROBIOTIC 1250 MG CAPSULE PO SCH (15:11)
[2022-08-04] MEDS: ENOXAPARIN INJ 40 MG/0.4 ML SYR SQ SCH (15:48)
[2022-08-04] MEDS: AMOXICILLIN/CLAVULANATE 875 MG TAB PO SCH (15:49)
[2022-08-04] MEDS ORDERED: FUROSEMIDE 40 MG/4 ML VIAL IV ONE (16:00)
[2022-08-04] MEDS ORDERED: MAGNESIUM HYDROXIDE SUSP 30 ML UDC PO PRN (16:43)
[2022-08-04] MEDS: MAGNESIUM HYDROXIDE SUSP 30 ML UDC PO PRN (17:23)
[2022-08-04] MEDS: CLINDAMYCIN HCL 150 MG CAP PO SCH ×2 (17:24→23:42)
[2022-08-04] MEDS: POLYETHYLENE (MIRALAX) 17 GM PACK PO SCH (17:56)
[2022-08-04] MEDS: DOCUSATE SODIUM 100 MG CAP PO SCH (19:48)
[2022-08-04] MEDS: ACETAMINOPHEN 325 MG TAB PO PRN (20:03)
[2022-08-04] MEDS ORDERED: DOXYCYCLINE HYCLATE 100 MG CAP PO SCH (21:00)
[2022-08-05] MEDS: oxyCODONE HCL IR 5 MG TAB (IMMEDIATE RELEASE) PO PRN (04:34)
[2022-08-05] MEDS: ACETAMINOPHEN 325 MG TAB PO PRN (04:35)
[2022-08-05] MEDS: CLINDAMYCIN HCL 150 MG CAP PO SCH ×2 (05:48→12:23)
[2022-08-05 08:10] LABS: BUN Creatinine Ratio 9.6 (10-20); Calcium 9.1 mg/dl (8.5-10.1); Creatinine Clr Calc Pharmacy 54.6 ml/min; Est GFR (African American) 58.2 ml/min; Est GFR (Non-African American) 50.2 ml/min; Potassium 3.3 mmol/L (3.5-5.1)
[2022-08-05] MEDS ORDERED: POTASSIUM CHLORIDE 20 MEQ/15 ML UDC PO STA (08:23)
[2022-08-05] MEDS: POTASSIUM CHLORIDE CRTAB 20 MEQ TABCR PO SCH (08:28)
[2022-08-05] MEDS: FOLIC ACID 1 MG TAB PO SCH (08:28)
[2022-08-05] MEDS: ASPIRIN 81 MG ECTAB PO SCH (08:28)
[2022-08-05] MEDS: FUROSEMIDE 80 MG TAB PO SCH (08:28)
[2022-08-05] MEDS: AMOXICILLIN/CLAVULANATE 875 MG TAB PO SCH (08:28)
[2022-08-05] MEDS: ADVANCED PROBIOTIC 1250 MG CAPSULE PO SCH (08:28)
[2022-08-05] MEDS: METOPROLOL SUCC 25MG EXT REL TAB PO SCH (08:28)
[2022-08-05] MEDS: MULTIVITAMIN TAB PO SCH (08:29)
[2022-08-05] MEDS: THIAMINE HCL 100 MG TAB PO SCH (08:29)
[2022-08-05] MEDS: allopurinoL 300 MG TAB PO SCH (08:29)
[2022-08-05] MEDS: DOCUSATE SODIUM 100 MG CAP PO SCH (08:33)
[2022-08-05] MEDS: POLYETHYLENE (MIRALAX) 17 GM PACK PO SCH (08:33)
--- NOTE | 2022-08-05 16:19 | Discharge Summary ---
Date of Service August 05, 2022 Admission HPI Per Admitting Provider Medical history significant for chronic diastolic CHF (EF 60 to 65%, TTE 2021), pulmonary hypertension, PAF, hypertension, hyperlipidemia, gout, chronic anemia (baseline hemoglobin of 12 ), alcohol abuse as per records, past tobacco abuse. Last confinement November 2021 for right foot gangrene status post surgery. Last week, patient noted gouty bumps on his left foot which led to wounds with some drainage. Increased pain and swelling. No fever, no chills, no chest pain, no SOB. Patient seen at certified pediatric nurse practitioner's office today. Patient directed to ER for possible bone infection. Cefepime administered at the ER. 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 Admission Exam Per Admitting Provider GENERAL: Slightly uncomfortable, slightly hard of hearing, no respiratory distress SKIN: Pallor, warm HEENT: Pale palpebral conjunctivae, no ptosis, dry buccal mucosa NECK : Supple, short neck, no tenderness CHEST : Decreased breath sounds, no tenderness HEART : RRR, no obvious murmurs ABDOMEN: distention, nontender EXTREMITIES : Gouty tophi noted on both elbows, minimal LE swelling, no tend erness, amputation stump right forefoot, dressing over tender left foot NEUROLOGIC : Coherent, no facial asymmetry, mild hearing impairment, no other gross focality Principal Diagnosis Left foot wound Discharge Exam Constitutional WD/WN, vitals as above Respiratory normal respiratory effort, lungs clear to auscultation Cardiovascular Rate/Rhythm: regular rate and regular rhythm Vessels: normal peripheral pulses Extremities: + edema (+1 edema BLE, L > R) Gastrointestinal (Abdomen) Percussion/Palpation: abdomen soft; abdomen nontender Skin no rashes, warm and dry Dressing in place to left foot Neurologic no focal motor deficits Psychiatric A+Ox3, euthymic affect Discharge Data Allergies Allergy/AdvReac Type Severity Reaction Status Date / Time gabapentin Allergy Severe swelling Verified 07/30/22 20:01 all over hydrocodone [From Vicodin] Allergy Intermediate Hives Verified 07/30/22 20:01 acetaminophen [From Vicodin] Allergy Unknown Hives Verified 07/30/22 20:01 fish derived Allergy Unknown Unknown Verified 07/31/22 11:47 shellfish derived Allergy Unknown Unknown Verified 07/31/22 11:47 strawberry Allergy Unknown Hives Verified 07/31/22 11:46 Consultations 07/30/22 22:50 Consult Podiatry Routine Procedures Performed Operation Date: 07/31/22 08:50 Actual Procedures p Excision Bone Left Lateral Foot(Left) - Nader Milner, DPM, MS Ordered Studies Laboratory Results WBC 5.78 K/ul (4.8-10.8) 08/02/22 05:47 RBC 4.37 M/uL (4.70-6.10) L 08/02/22 05:47 Hgb 11.5 g/dl (14.0-18.0) L 08/02/22 05:47 Hct 36.5 % (42.0-52.0) L 08/02/22 05:47 MCV 83.5 fL (80.0-100.0) 08/02/22 05:47 MCH 26.3 pg (25.0-34.0) 08/02/22 05:47 MCHC 31.5 g/dL (32.0-36.0) L 08/02/22 05:47 RDW Std Deviation 43.8 fL (36.4-46.3) 08/02/22 05:47 RDW Coeff of Brooks 14.5 % (11.5-14.5) 08/02/22 05:47 Plt Count 121 K/uL (130-400) L 08/02/22 05:47 MPV 10.5 fL (9.4-12.4) 08/02/22 05:47 Immature Gran % (Auto) 0.2 % 07/31/22 07:10 Neut % (Auto) 54.4 % 07/31/22 07:10 Lymph % (Auto) 31.3 % 07/31/22 07:10 [place] % (Auto) 7.7 % 07/31/22 07:10 Eos % (Auto) 5.2 % 07/31/22 07:10 Baso % (Auto) 1.2 % 07/31/22 07:10 Neut # (Auto) 2.81 K/uL (1.40-6.50) 07/31/22 07:10 Lymph # (Auto) 1.62 K/uL (1.2-3.4) 07/31/22 07:10 [place] # (Auto) 0.40 K/uL (0.11-0.59) 07/31/22 07:10 Eos # (Auto) 0.27 K/uL (0-0.50) 07/31/22 07:10 Baso # (Auto) 0.06 K/uL (0-0.2) 07/31/22 07:10 Immature Gran # (Auto) 0.01 K/uL (0.01-0.20) 07/31/22 07:10 ESR 19 mm/hr (0-20) 07/30/22 18:31 Sodium 136 mmol/L (136-145) 08/05/22 06:41 Potassium 3.3 mmol/L (3.5-5.1) L 08/05/22 06:41 Chloride 101 mmol/L (98-107) 08/05/22 06:41 Carbon Dioxide 29 mmol/L (21-32) 08/05/22 06:41 Anion Gap 6 (3-11) 08/05/22 06:41 BUN 13 mg/dl (6-23) 08/05/22 06:41 Creatinine 1.36 mg/dl (0.6-1.4) 08/05/22 06:41 Est Cr Clr Drug Dosing 54.6 ml/min 08/05/22 06:41 Est GFR ( Amer) 58.2 ml/min 08/05/22 06:41 Est GFR (Non-Af Amer) 50.2 ml/min 08/05/22 06:41 BUN/Creatinine Ratio 9.6 (10-20) L 08/05/22 06:41 Glucose 103 mg/dl (70-99(Fasting)) H 08/05/22 06:41 Lactate 1.4 mmol/L (0.4-2.0) 07/30/22 19:20 Uric Acid 5.9 mg/dl (2.6-7.2) 07/30/22 18:31 Calcium 9.1 mg/dl (8.5-10.1) 08/05/22 06:41 Magnesium 2.2 mg/dl (1.7-2.4) 08/04/22 06:22 Total Bilirubin 0.7 mg/dl (0.2-1.0) 07/30/22 18:31 AST 20 U/L (13-39) 07/30/22 18:31 ALT 10 U/L (7-52) 07/30/22 18:31 Alkaline Phosphatase 83 U/L (34-104) 07/30/22 18:31 C-Reactive Protein 0.52 mg/dl (0-0.5) H 07/30/22 18:31 Total Protein 6.5 gm/dl (6.0-8.3) 07/30/22 18:31 Albumin 3.9 gm/dl (3.4-5.0) 07/30/22 18:31 Globulin 2.6 gm/dl (2.5-4.0) 07/30/22 18:31 Albumin/Globulin Ratio 1.5 (0.9-2) 07/30/22 18:31 SARS-CoV-2, RNA, NAAT NEGATIVE (NEGATIVE) 07/30/22 19:[address] 07/30/22 19:24 CT foot LT w con HISTORY: 77 years-old Male L foot pain, infection, osteomyelitis concern chronic left foot pain with clinical concern for osteomyelitis COMPARISON: None TECHNIQUE: Multiple axial CT images of the left foot were obtained following the intravenous administration of 87 mL Optiray 350. A dose lowering technique was used consistent with the principals of ALANISRA. FINDINGS: There is diffuse atrophy of the musculature. Arterial calcifications. There are prominent nonspecific amorphous soft tissue calcifications throughout the soft tissues of the foot, notably within the periventricular distributions surrounding the first and fifth metatarsophalangeal joints, ankle and midfoot. Mild to moderate subcutaneous edema, most pronounced dorsally. No abscess identified. Ligaments and tendons are suboptimally evaluated by CT technique. 11 mm ulcer lateral to the fifth MTP joint. Prominent subcortical cystic changes within the midfoot, most pronounced in the cuneiforms and bases of the metatarsals with multifocal periarticular/marginal erosions also involving the first metatarsal head. Findings suggestive of a healed chronic fracture of the fifth metatarsal head. No large erosions of the fifth metatarsal head to suggest acute osteomyelitis. Soft tissue calcifications within the distal Achilles tendon. IMPRESSION: 1. Small ulcer lateral to the fifth MTP joint. No underlying bony destruction to suggest acute osteomyelitis. 2. No abscess. 3. Numerous marginal/periarticular erosions, some of which demonstrate sclerotic overhanging margins suggestive of gout arthropathy with numerous soft tissue periarticular calcifications likely indicating tophi. This finding was called/faxed to the floor at time dictation. ACT 112: Negative or not required by law. The above report was generated using voice recognition software. It may contain grammatical, syntax or spelling errors. Electronically signed by: Richardson Melendez M.D. 07/31/2022 7:48 AM Duplex Scan Lower Extremity Artery 07/31/22 11:41 US arterial duplex left lower extremity CLINICAL HISTORY: Left lower extremity wounds, concern for peripheral arterial disease COMPARISON STUDY: None. FINDINGS: Calcified plaque throughout the left lower extremity arterial system. Normal velocities and waveforms seen within the left common femoral artery. There are monophasic waveforms within the left superficial femoral artery, left popliteal artery and calf arteries. 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 No elevated velocities identified. The dorsalis pedis artery was not assessed due to the recent left foot surgery. IMPRESSION: 1. The left peroneal artery appears occluded. 2. Diffuse calcified plaque throughout the left lower extremity arterial system. 3. Monophasic waveforms with a majority left lower extremity arterial system suggestive of diffuse atherosclerotic disease. ACT 112: Negative or not required by law. Electronically signed by: Jairo Hearn M.D. 08/01/2022 10:14 AM Venous Doppler Study 07/31/22 11:41 RIGHT LOWER EXTREMITY VENOUS DOPPLER HISTORY: R, edematous compared to LLE COMPARISON STUDY: None. FINDINGS: There is normal compressibility, flow, and augmentation within the right lower extremity deep venous system. IMPRESSION: No DVT within the right lower extremity ACT 112: Negative or not required by law. Electronically signed by: Jairo Hearn M.D. 08/01/2022 7:32 AM Hospital Course (1) Infection of left foot: (2) Open wound of left foot: (3) CHF (congestive heart failure): (4) LIANET (obstructive sleep apnea): (5) Hypertension: (6) Alcohol abuse: This is a 77yo M with a PMH of chronic diastolic CHF (EF 60 to 65%, TTE 2021), pulmonary hypertension, HTN, hyperlipidemia, gout, chronic anemia (baseline hemoglobin of 12), alcohol abuse as per records, past tobacco abuse, history of R foot gangrene in November 2021 s/p surgical resection and other medical problems listed below who presents with left foot cellulitis. Left foot cellulitis2/2 to infected ulcerated wounds from tophaceous gout directed to ED by Dr. Milner Foot CT with small ulcer lateral to the fifth MTP joint. No underlying bony destruction to suggest acute osteomyelitis, no abscess. Numerous marginal/periarticular erosions, some of which demonstrate sclerotic overhanging margins suggestive of gout arthropathy with numerous soft tissue periarticular calcifications likely indicating tophi POD# 4 1.) Excision of chronic wound and Tophaceous gout of Left foot 2.) Excision of Left fifth metatarsal, 3.) Excision of left fifth proximal phalanx by Dr. Milner Blood cultures no growth Outpatient wound culture results from 07/23/[address] Milner and reviewed. Growing Enterococcus faecalis and Staphylococcus epidermis. Awaiting formal copy for chart. Surgical Wound culture --high counts mixed probable skin microbiota. 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 Plan to continue antibiotics until 08/10/2022 (10 days postop). Start daily probiotic. Outpatient Rheumatology visit for patient's chronic tophaceous gout. Continue allopurinol. Chronic diastolic CHF(EF 60 to 65%, TTE 2021), pulmonary hypertension Received Lasix 20 mg IV on 08/01, Lasix 40mg IV on 08/03, Lasix 40mg IV on 08/04 due to leg edema ? due to IVF from IV antibiotics Leg edema improved on the day of discharge, continue home dose furosemide Neuropathy Patient complained of burning pain to the bilateral legs and feet. Previously trialed on gabapentin however patient has an allergy. Pain improved as edema resolved. Typically managed with tramadol at home. HTN BP controlled, continue Toprol HLD Continue statin Chronic anemia Hemoglobin at baseline Alcohol abuse As per records, patient has cut down on drinking as per his account. AWSS protocol, gabapentin allergy noted. Ativan PRN No signs of alcohol withdrawal during admission Total Time Total Time Spent Total Time Spent (In Minutes): 40 Discharge Plan Discharge Items Patient Disposition: Home - Self-Care Reason For Visit: Left foot wound Discharge Diagnosis: Left foot wound infection requiring surgery, gout Condition on Discharge: Good Activity: Resume your previous activity Non-emergency contact: Primary Care Provider and Surgeon Call non-emergency contact if: you have any medication questions, your symptoms worsen, your pain is not controlled, your pain is concerning for you and you have a fever Follow-up/Referrals: Alberto Cristobal M.D. [Primary Care Provider] - 08/11/22 10:20 am Nader Milner DPM, MS [Physician] - 08/12/22 (please call for an appt for 08/12 or 08/13) Diet: Heart Healthy and Low Sodium (2gm) Diet Comment: gout diet Addtl Attending Provider Instructions: You came to the hospital for a left foot wound. Dr. Milner performed surgery on 07/31 to clean the wound. Gout was felt to be contributing to your wound. Please try to adhere to a gout friendly diet. You received IV antibiotics while in the hospital. You will be discharged on 2 antibiotics: Clindamycin 150 mg every 6 hours and amoxicillin/clavulanate (Augmentin) 1 tab let twice daily -take both antibiotics until 08/10/2022. Take a probiotic daily for 1 month. Call your PCP immediately if you develop diarrhea. Obtain follow up blood work with your PCP to check your potassium level. Continue to take all other medications as prescribed. Dressing change instructions: Daily dressing changes including 4x4, kerlix wrap, and peter. A follow-up appointment has been made for you with your PCP. Please call Dr. Milner's office and schedule a follow-up appointment for one week. It was a pleasure taking care of you. If you need to reach a member of the [facility] hospitalist team at [facility], please call [phone]. CECI Rosario Pending Studies at Discharge: Yes Studies:: Pathology results from left foot from surgery Stand-Alone Forms: My [facility], Smoking Cessation Medications and DC Order Prescriptions: New amoxicillin-pot clavulanate 875-125 mg Tablet 1 tab PO BIDM Qty: 11 0RF clindamycin HCl 150 mg Capsule 150 mg PO Q6 Qty: 22 0RF Advanced Probiotic 625 mg (10 billion cell) Capsule 2 cap PO DAILY Qty: 60 0RF Continued furosemide 40 mg tablet 40 mg PO HS aspirin 81 mg Tablet,Delayed Release (Dr/Ec) 81 mg PO QAM tramadol 50 mg tablet 50 mg PO Q6H PRN (Reason: Pain) acetaminophen [Mapap (acetaminophen)] 325 mg Tablet 650 mg PO Q4H PRN (Reason: fever or pain) Qty: 100 0RF allopurinol 300 mg tablet 300 mg PO BID thiamine HCl (vitamin B1) 100 mg Tablet 100 mg PO QAM Qty: 30 0RF potassium chloride 10 mEq tablet extended release 20 meq PO BID Qty: 0 0RF metoprolol succinate 25 mg tablet extended release 24 hr 25 mg PO QAM furosemide 40 mg tablet 80 mg PO QAM pantoprazole 40 mg tablet,delayed release (DR/EC) 40 mg PO QAM PRN (Reason: Heartburn) cholecalciferol (vitamin D3) [Vitamin D3] 25 mcg (1,000 unit) Tablet 25 mcg PO QAM vit A-vit C-vit [id number] Tablet 1 tab PO QAM Discontinued loperamide 2 mg Capsule 2 mg PO Q8H PRN (Reason: diarrhea) Qty: 30 0RF cephalexin 500 mg capsule 500 mg PO TID Rx Instructions: ordered 07/24/22 for 7 days Discharge Orders: Discharge Order (Routine); Ordered 08/05/22 Ordered By: Cheyenne Diehl/Other Patient Handouts: Eating to Prevent Gout Admission Data Admit Date/Time: 07/30/22 22:46 Attending Provider: Vanna Harrison I. Admit Provider: Antony Szymanski Primary Care Provider: Alberto Cristobal Other Providers: Regla Snow ; Antony Szymanski ; Nader Milner ; Jose Armando Pina Other Interventions: Discharge Summary Assessment (RN) Last Done: 08/05/22 11:58 Supervising Physician Co-Signing Physician Notes Patient seen and examined Agree with findings and plans as detailed by Cheyenne ORNELAS
== END 2022-08-05 13:55 | disposition home or self-care (01) | DRG 580 ==
LOC: ED 16:33 → 3E 22:46 → SUATTDRO 22:46 → 3E 07-31 00:50